=== PATIENT | female | born 1990 | race Caucasian/White ===

== ENCOUNTER 2017-10-12 15:08 | Emergency (ER) | payer MEDICAID, SELFPAY ==
[2017-10-12 15:30] VITALS: BP 115/66; PULSE 74; RESP 20; TEMP 36.6; O2SAT 99; BMI 25.2
[2017-10-12 15:55] LABS: Apearance,Urine Clear (Clear); Bilirubin,Urine Negative (Negative); Blood, Urine Negative (Negative); Color,Urine Yellow (Yellow); Glucose,Urine (UA) Negative (Negative); Ketones,Urine Negative (Negative); Protein,Urine Negative (Negative); UTC Leukocyte Esterase,Urine Trace (Negative); Urobilinogen,Urine 0.2 EU/dl (0.2)
[2017-10-12 15:56] LABS: UTC Nitrate,Urine Negative (Negative)
--- NOTE | 2017-10-12 16:04 | HMH.EDUTC ---
[facility] [place] Clinical Impression: Suprapubic pain, acute Disposition: Home, Self-Care Condition on Discharge: Good Instructions: DI for Abdominal Pain-Adult Additional Instructions: As we discussed, further evaluation is necessary to determine diagnosis. I understand you do not want to transfer to ER but if ANY pain or new symptoms begin, you agree to return immediately * Otherwise, call Dr. Hanna on Saturday. Report symptoms. Notify them you were in [place] today. U/A trace leuks and sent for culture so they can get those results for you (they take 2-3 days to return) and urine preg negative Referrals: Neno Hanna MD [Staff Physician] - (ER for new or returning symptoms. Call Dr. Hanna on Saturday as we discussed. ) Time of Disposition: 16:24 Medical Decision Making - Danny Inquiry Pt receiving controlled substance: No Vital Signs: 10/12/17 15:30 Temperature 97.9 F Temperature Source Temporal Artery Scan Pulse Rate [Right Radial] 74 Respiratory Rate 20 Blood Pressure [Right Arm] 115/66 Blood Pressure Mean [Right Arm] 82 02 Sat by Pulse Oximetry 99 Oxygen Delivery Method Room Air - Lab Data Lab results reviewed: Yes: I reviewed the patient's lab results. Lab Results 10/12/17 15:30: Urine Color Yellow, Urine Appearance Clear, Urine pH 5.0, Ur Specific [place] 1.010, Urine Protein Negative, Urine Glucose (UA) Negative, Urine Ketones Negative, Urine Blood Negative, Urine Nitrate Negative, Urine Bilirubin Negative, Urine Urobilinogen 0.2, Ur Leukocyte Esterase Trace 10/12/17 16:15: [facility] Clinic Negative Orders (Tests/Meds): ORDERS Category Date Time Status Urine Culture Stat Micro 10/12/17 16:00 Received - Reevaluation(s) Time: 16:15 Reevaluation #1: Discussed possible differentials and need for further workup. Aware this type of workup is not typically done here in [place] and requires transfer to ER. Patient refuses transfer to ER since pain resolved again. Aware of the risk associated w/ not treating each differential. States she rather Call Dr. Hanna on Saturday and follow up with him but that if pain returns or any new symptoms, will return to ER immediately. [facility] [place] - General Stated complaint: pain left hip,nausa Time Seen by Provider: 10/12/17 16:05 Mode of Arrival: Family Vehicle Source of Information: Patient Limitations: No Limitations Description of Symptoms (Recalled from Triage Doc. by RN): PT C/O LEFT LOWER HIP/ABDOMINAL PAIN THAT CAN CAUSE NAUSEA. HEENT Symptoms (Recalled from RN notes): No Resp Symptoms (Recalled from RN notes): No Skin Symptoms (Recalled from RN notes): No MS Symptoms (Recalled from RN notes): No Functional Status (Recalled from RN notes): NA - History of Present Illness Provider Complaint: c/o having had hip pain but touching suprapubic area. First noticed during the day on . mild sharp pain right flank. Took tylenol and pain resolved. Just didn't think much of it . night pain right suprapubic region associated w/ nausea. Came out of no where intense, sharp, gradually worsened then gradually faded over the next approx 3 hours. No pain yesterday. Today around 2:15pm, same pain started but this time left suprapubic region. Again severe, sharp, throbbing. Nausea again but today, I just felt weird . Lightheaded and shaky feeling but wasn't really shakey . Took 400mg ibuprofen. pain continued to gradually worsen but has since faded completely away. No pain or nausea currently since signing in. - Related Data Allergies Allergy/AdvReac Type Severity Reaction Status Date / Time No Known Allergies Allergy Verified 10/12/17 15:36 - Worker's Comp Is this a Worker's Comp case?: No H History I have reviewed the patient's past medical history: Yes Medical History: Denies:: Cancer, Diabetes Mellitus Type 1, Diabetes Mellitus Type 2, Hypertension, MRSA Laterality Cases: Bilateral: Myringotomy (Ear Tubes) Other Surgeries: Yes: O
--- NOTE | 2017-10-12 16:15 | ED_ITS ---
[facility] [place] Impression: Suprapubic pain, acute Disposition: Home, Self-Care Condition on Discharge: Good Instructions: DI for Abdominal Pain-Adult Additional Instructions: As we discussed, further evaluation is necessary to determine diagnosis. I understand you do not want to transfer to ER but if ANY pain or new symptoms begin, you agree to return immediately * Otherwise, call Dr. Hanna on Saturday. Report symptoms. Notify them you were in [facility] today. U/A trace leuks and sent for culture so they can get those results for you (they take 2-3 days to return) and urine preg negative Referrals: Neno Hanna MD [Staff Physician] - (ER for new or returning symptoms. Call Dr. Hanna on Saturday as we discussed. ) Time of Disposition: 16:24 Medical Decision Making - Danny Inquiry Pt receiving controlled substance: No Vital Signs: 10/12/17 15:30 Temperature 97.9 F Temperature Source Temporal Artery Scan Pulse Rate [Right Radial] 74 Respiratory Rate 20 Blood Pressure [Right Arm] 115/66 Blood Pressure Mean [Right Arm] 82 02 Sat by Pulse Oximetry 99 Oxygen Delivery Method Room Air - Lab Data Lab results reviewed: Yes: I reviewed the patient's lab results. Lab Results 10/12/17 15:30: Urine Color Yellow, Urine Appearance Clear, Urine pH 5.0, Ur Specific [place] 1.010, Urine Protein Negative, Urine Glucose (UA) Negative, Urine Ketones Negative, Urine Blood Negative, Urine Nitrate Negative, Urine Bilirubin Negative, Urine Urobilinogen 0.2, Ur Leukocyte Esterase Trace 10/12/17 16:15: Tst Clinic Negative Orders (Tests/Meds): ORDERS Category Date Time Status Urine Culture Stat Micro 10/12/17 16:00 Received - Reevaluation(s) Time: 16:15 Reevaluation #1: Discussed possible differentials and need for further workup. Aware this type of workup is not typically done here in [facility] and requires transfer to ER. Patient refuses transfer to ER since pain resolved again. Aware of the risk associated w/ not treating each differential. States she rather Call Dr. Hanna on Saturday and follow up with him but that if pain returns or any new symptoms, will return to ER immediately. [facility] [place] - General Stated complaint: pain left hip,nausa Time Seen by Provider: 10/12/17 16:05 Mode of Arrival: Family Vehicle Source of Information: Patient Limitations: No Limitations Description of Symptoms (Recalled from Triage Doc. by RN): PT C/O LEFT LOWER HIP /ABDOMINAL PAIN THAT CAN CAUSE NAUSEA. HEENT Symptoms (Recalled from RN notes): No Resp Symptoms (Recalled from RN notes): No Skin Symptoms (Recalled from RN notes): No MS Symptoms (Recalled from RN notes): No Functional Status (Recalled from RN notes): NA - History of Present Illness Provider Complaint: c/o having had hip pain but touching suprapubic area. First noticed during the day on . mild sharp pain right flank. Took tylenol and pain resolved. Just didn't think much of it . night pain right suprapubic region associated w/ nausea. Came out of no where intense, sharp, gradually worsened then gradually faded over the next approx 3 hours. No pain yesterday. Today around 2:15pm, same pain started but this time left suprapubic region. Again severe, sharp, throbbing. Nausea again but today, I just felt weird . Lightheaded and shaky feeling but wasn't really shakey . Took 400mg ibuprofen. pain continued to gradually worsen but has since faded completely away. No pain or nausea currently sin
[2017-10-12 16:24] LABS: UTC Pregnancy Test, Urine Negative (Negative)
[2017-10-12 16:26] VITALS: BP 110/85; PULSE 70; RESP 18; TEMP 36.7; O2SAT 100
== END 2017-10-12 16:27 | disposition home or self-care (01) ==
PROVIDERS: Emergency Provider Nurse Practitioner Family; Family Provider Family Medicine; PCP Family Medicine
DX: R10.2 Pelvic and perineal pain (principal); M25.552 Pain in left hip
CPT/HCPCS: 81003; 81025; 87086; 99201

== ENCOUNTER 2017-10-13 20:51 | Observation (INO) | payer MEDICAID, SELFPAY ==
[2017-10-13 20:58] VITALS: BP 125/77; PULSE 84; RESP 18; TEMP 36.6; O2SAT 100; BMI 34.2
--- NOTE | 2017-10-13 21:16 | CT_ITS ---
CT abdomen pelvis w con COMPARISON: CT scan abdomen pelvis without contrast 05/30/2012 HISTORY: Lower abdominal pain for 3 to 4 days, some nausea TECHNIQUE: Multiaxial scans obtained from hemidiaphragms the pelvic floor and were performed with IV contrast only. Sagittal and coronal reformats were evaluated as well. FINDINGS: The lower lung barrientos are clear. The liver spleen and pancreas appear normal. The stomach is distended with ingested food particles. There is a small hiatal hernia. There is mild dilatation of the descending duodenum. The small bowel appears normal throughout. There is apparent postsurgical scarring near the umbilicus. The adrenal glands are normal. The kidneys are normal size and show symmetrical function both appearing normal. There appear to be surgical sutures in the cecum and I do not definitely identify the appendix. There is moderate amount stool in ascending colon. There are bilateral tubal ligation clips. The uterus is slightly enlarged and in the midline. Urinary bladder is normal. There is no free fluid in the pelvis. IMPRESSION: Probable postsurgical scarring involving the umbilicus. Do not feel that there is an entrapment of small bowel as was mentioned in the C report. The degree of stomach distention is consistent with a recently ingested meal. I feel is no definite acute abdominal or pelvic pathology identified.
[2017-10-13 21:22] LABS: Basophils % 0.2 % (0.1-2.0); Eosinophils # 0.1 K/mm3 (0.0-0.4); Eosinophils % 1.8 % (0.1-12.0); Hematocrit 41.4 % (37.0-47.0); Hemoglobin 13.3 g/dL (12.2-16.2); Lymphocytes # 2.2 K/mm3 (0.7-4.5); Lymphocytes % 32.6 K/mm3 (10-50); Mean Corpuscular HGB Conc 32.1 g/dL (31.8-35.4); Mean Corpuscular Hemoglobin 29.2 pg (27.0-31.2); Mean Corpuscular Volume 90.9 fl (81-99); Monocytes # 0.5 K/mm3 (0.1-1.0); Monocytes % 7.3 % (1.7-9.3); Neutrophils % 58.1 % (37.0-80.0); Platelet Count 182 K/mm3 (142-424); Red Blood Count 4.55 M/mm3 (4.20-5.40); White Blood Count 6.8 K/mm3 (4.8-10.8)
[2017-10-13 21:23] LABS: Microscopic, Urine URINE MICROSCOPIC (MICROSCOPIC)
[2017-10-13 21:24] LABS: Appearance,Urine CLEAR (Clear); Bilirubin,Urine Negative (Negative); Blood, Urine Negative (Negative); Color,Urine YELLOW (Yellow); Glucose,Urine (UA) Negative (Negative); Ketones,Urine Negative (Negative); Leukocyte Esterase,Urine Negative (Negative); Nitrate,Urine Negative (Negative); PH,Urine 6.5 (5.0-8.5); Protein,Urine Negative (Negative); Specific Gravity, Urine 1.015 (1.005-1.030); Urobilinogen,Urine 0.2 EU/dl (0.2)
[2017-10-13 21:26] LABS: Renal Epithelial Cells,Urine Occasional #/lpf (0); Squamous Epithelial Cell,Urine Occasional #/hpf (0-5)
[2017-10-13 21:38] LABS: Alanine Aminotransferase 17 U/L (12-78); Albumin Level 3.7 gm/dL (3.4-5.0); Albumin/Globulin Ratio 1.2 (1.1-1.8); Alkaline Phosphatase 52 U/L (46-116); Amylase 46 U/L (25-125); Anion Gap 13.4 mEq/L (5-15); Aspartate Amino Transferase 10 U/L (15-37); Bilirubin,Total 0.2 mg/dL (0.2-1.0); Blood Urea Nitrogen 16 mg/dL (7-18); Calcium 8.5 mg/dL (8.5-10.1); Carbon Dioxide 24 mmol/L (21.0-32.0); Chloride 107 mmol/L (98-107); Creatinine Clearance Estimated 122 mL/min (0-300); Estimated Glomerular Filt Rate 75 ml/min (>60); GFR (African American) 91 ML/MIN (>60); Glucose 81 mg/dL (74-106); Lipase 164 u/L (73-393); Potassium 3.4 mmoL/L (3.5-5.1); Sodium 141 mmol/L (136-145); Total Protein,Serum 6.7 gm/dL (6.4-8.2)
--- NOTE | 2017-10-13 22:56 | HMH.EDABDPAI ---
ED Disposition Clinical Impression: Partial small bowel obstruction Crohns disease Qualifiers: Gastrointestinal tract location: unspecified location Digestive disease complication type: other complication Qualified Code(s): K50.918 - Crohn's disease, unspecified, with other complication Disposition: Admitted As Inpatient Condition on Discharge: Good Time of Disposition: 23:45 - Critical Care Critical Care Time: No Attestation: On 10/13/17, the high probability of a clinically significant, sudden or life threatening deterioration of the following system(s) required my full and direct attention, intervention and personal management. The time I documented below is in addition to time spent performing reported procedures but includes the following listed in this critical care notation. Medical Decision Making - Medical Records Medical records reviewed: Yes: I reviewed the patient's medical records. - Danny Inquiry Pt receiving controlled substance: No Vital Signs: 10/13/17 20:58 10/13/17 23:31 Temperature 97.8 F Temperature Source Oral Pulse Rate [Bilateral Brachial] 84 72 Respiratory Rate 18 14 Blood Pressure [Right Arm] 125/77 108/66 Blood Pressure Mean [Right Arm] 93 80 Blood Pressure Source [Right Arm] Automatic Cuff Automatic Cuff Blood Pressure Position [Right Arm] Sitting Sitting 02 Sat by Pulse Oximetry 100 100 Oxygen Delivery Method Room Air Room Air - Lab Data Lab results reviewed: Yes: I reviewed the patient's lab results. Lab Results 10/13/17 21:10: Urine Color Yellow, Urine Appearance Clear, Urine pH 6.5, Ur Specific [place] 1.015, Urine Protein Negative, Urine Glucose (UA) Negative, Urine Ketones Negative, Urine Blood Negative, Urine Nitrate Negative, Urine Bilirubin Negative, Urine Urobilinogen 0.2, Ur Leukocyte Esterase Negative, Ur Squamous Epith Cells Occasional, Ur Renal Epithelial Cell Occasional 10/13/17 21:10: WBC 6.8, RBC 4.55, Hgb 13.3, Hct 41.4, MCV 90.9, MCH 29.2, MCHC 32.1, RDW 14.0, Plt Count 182, MPV 8.0, Neut % (Auto) 58.1, Lymph % (Auto) 32.6, [place] % (Auto) 7.3, Eos % (Auto) 1.8, Baso % (Auto) 0.2, Neut # (Auto) 4.0, Lymph # (Auto) 2.2, [place] # (Auto) 0.5, Eos # (Auto) 0.1, Baso # (Auto) 0.0 10/13/17 21:10: Sodium 141, Potassium 3.4 L, Chloride 107, Carbon Dioxide 24, Anion Gap 13.4, BUN 16, Creatinine 0.90, Estimated Creat Clear 122, Estimated GFR 75, Est GFR ( Amer) 91, Glucose 81, Calcium 8.5, Total Bilirubin 0.2, AST 10 L, ALT 17, Alkaline Phosphatase 52, Total Protein 6.7, Albumin 3.7, Globulin 3.0, Albumin/Globulin Ratio 1.2, Amylase 46, Lipase 164 Result diagrams: 10/13/17 21:10 10/13/17 21:10 Orders (Tests/Meds): ED MEDICATIONS Generic Name Dose Route Start Last Admin Trade Name Freq PRN Reason Stop Dose Admin Potassium Chloride/Sodium Chloride 1,000 mls @ 75 mls/hr 10/14/17 00:45 10/14/17 02:24 Kcl 20 Meq In Ns 1,000 Ml Iv Soln IV 11/13/17 00:44 75 mls/hr .[id number] BHAVNA Administration Iopamidol 75 ml 10/14/17 00:50 10/14/17 01:28 [id number]; 75ml Vial IV 10/14/17 00:51 75 ml ONCE ONE Administration Morphine Sulfate 4 mg 10/14/17 00:42 Morphine 4mg/Ml Syringe IV 11/13/17 00:41 Q4HP PRN Moderate Pain Ondansetron HCl 4 mg 10/14/17 00:42 Zofran 4mg/2ml Vial IV 11/13/17 00:41 Q6HP PRN Nausea Promethazine HCl 12.5 mg 10/14/17 00:42 Phenergan 25mg/Ml 1ml Vial IV 11/13/17 00:41 Q4HP PRN Nausea And Vomiting Sodium Chloride 25 ml 10/14/17 00:42 Sod Chlor 0.9% 25ml Bag IV 11/13/17 00:41 NEEDED PRN for Use with IV Promethazine Sodium Chloride 10 ml 10/14/17 00:50 10/13/17 21:40 Rad-Saline Flush 10ml Syringe IV 10/14/17 00:51 10 ml ONCE ONE Administration Discontinued Medications Generic Name Dose Route Start Last Admin Trade Name Freq PRN Reason Stop Dose Admin Sodium Chloride 1,000 mls @ 999 mls/hr 10/13/17 21:30 10/13/17 21:20
--- NOTE | 2017-10-13 23:26 | PC.NURSE ---
continuous improvement black belt surgeon paged at this time, dr. polk returned page
[2017-10-13 23:31] VITALS: BP 108/66; PULSE 72; RESP 14; O2SAT 100
--- NOTE | 2017-10-13 23:32 | PC.NURSE ---
dr. watkins paged to speak with ED physician.
--- NOTE | 2017-10-13 23:34 | PC.NURSE ---
dr. watkins returned page at this time
[2017-10-14] VITALS (8 sets, daily range): BP systolic 92–123; BP diastolic 46–74; PULSE 61–69; RESP 12–20; TEMP 36.6–36.9; O2SAT 96–100; BMI 35.9
--- NOTE | 2017-10-14 00:35 | PC.NURSE ---
PT FULL CODE. REPORT FROM GUIDO IN ER
--- NOTE | 2017-10-14 00:37 | PC.NURSE ---
REPORT GIVEN TO Alberto LEON RN
--- NOTE | 2017-10-14 05:06 | PC.NURSE ---
NEW ADMIT THIS SHIFT. PARTIAL SMALL BOWEL OBSTRUCTION. PT NPO. HAS CONSULTS THIS A.M. WITH DR. GRAY AND DR. CHUNG. NPO. IV INFUSING [id number]/HR W/O REDNESS OR EDEMA. PT HAD LABS IN ER, BUT NO OTHER LABS ORDERED FOR THIS MORNING. POSSIBILITY OF SCOPE/COLONOSCOPY TODAY. RESPIRATIONS EVEN AND UNLABORED WITH BREATH SOUNDS CLEAR. PT STATES HAS NO MEDICAL PROBLEMS AND DOESN'T TAKE ANY MEDICATIONS AT HOME ON REGULAR BASIS. WAS AVAILABLE TO REQUEST PAIN MEDICATION RECENTLY, BUT HAS BEEN SLEEPING AND NO REQUESTING ANY. NO C/O PAIN OR NAUSEA. SLEEPING LONG INTERVALS. STABLE. WILL CONTINUE TO MONITOR. REPORT TO BE GIVEN TO ONCOMING NURSE.
--- NOTE | 2017-10-14 07:24 | PC.NURSE ---
REPORT GIVEN TO Jeremy CONTI W/C
--- NOTE | 2017-10-14 07:24 | HMH.GSCON ---
*Admission Date: 10/13/17 *Chief complaint: Abdominal pain *History of present illness: Patient is a pleasant healthy 27-year-old white female. She states that this past on 10/10/17 she had developed some right lower flank pain. She had taken ibuprofen. This transiently resolved. She then developed some pain in the right lower pelvic area. She then had development of pain in the left lower pelvic area. She was seen and evaluated in the urgent on 10/12/17. Limited workup at that time was unremarkable. Her symptoms once again transiently resolved. She then developed recurrent pain characterized as cramping across the entire lower abdomen. She presented to the emergency department late yesterday evening due to the pain. She has had some associated nausea. Evaluation in the emergency department revealed normal blood work. She underwent CT scan with IV contrast only. This is most notable for some thickening of the small bowel and colon diffusely. It was felt that inflammatory bowel disease cannot be ruled out. She also was noted to have an area of loop of small bowel closely involved with the right. The umbilical location and it was felt there may be some pinching . For this reason surgery was contacted. Patient was admitted for inpatient management, gastroenterology consultation, surgical consultation. Patient does note that she has had some loose stools the past several days. Review of Systems - Review of Systems Review of systems:: pertinent systems reviewed and negative unless documented below [facility] History Medical History: Denies:: Cancer, Diabetes Mellitus Type 1, Diabetes Mellitus Type 2, Hypertension, MRSA Laterality Cases: Bilateral: Myringotomy (Ear Tubes) Other Surgeries: Yes: Other (cholecystectomy, tubes clamped) Amputation: No Fractures: No - *Social History Educational Level: Completed High School Smoking Status: Current every day smoker Tobacco Type: cigarettes # Packs/Day (cigarettes): 1 Alcohol Intake: never Alcohol Intake Frequency:: holidays/special occasions only Occupational Status: employed Housing: other Household Members: significant other, children - Psychiatric History Expresses thoughts of harming self/others: None Suicide Plan Description: No Plan *Family Hx:: Diabetes, Hyperlipidemia, Hypertension, Thyroid Disorder Meds Home Medications Medication Instructions Recorded Confirmed Type No Known Home Medications [No 10/13/17 10/13/17 History Known Home Medications] Allergies Allergy/AdvReac Type Severity Reaction Status Date / Time No Known Allergies Allergy Verified 10/12/17 15:36 Exam Vital signs and Labs for Last 24 Hours: Temp Pulse Resp BP Pulse Ox 98.1 F 63 18 95/62 97 10/14/17 04:11 10/14/17 04:11 10/14/17 04:11 10/14/17 04:11 10/14/17 04:11 I & O for Last 24 hours: Intake & Output 10/11/17 10/12/17 10/13/17 10/14/17 11:59 11:59 11:59 11:59 Intake Total 290 / 290 Balance 290 / 290 Weight 190 lb 4 oz - Constitutional no acute distress - *Routine Respiratory Exam Present: CTA bilaterally - *Routine Cardiovascular Exam Present: RRR - *Routine Abdominal Exam Present: soft, normoactive bowel sounds. Absent: tenderness Results - Labs 10/13/17 21:10 10/13/17 21:10 Assessment and Plan - Assessment and plan all Dx Assessment and Plan for all problems:: Agree with gastroenterology consultation. I reviewed her CT scan regarding this focal area of small bowel in the right periumbilical location. There may be a small nonobstructing hernia. This could be secondary to her prior cholecystectomy done in [place]. This could be merely adhesions as well. Regardless, there is no evidence of any obstruction at this site. It may be reasonable to obtain CT scan with oral contrast. I will discuss this case with radiology today and await the final report.
--- NOTE | 2017-10-14 07:27 | PC.NURSE ---
0710 - Report received from Sandro Manzano RN
--- NOTE | 2017-10-14 07:29 | P.CONS_ITS ---
*Admission Date: 10/13/17 *Chief complaint: Abdominal pain *History of present illness: Patient is a pleasant healthy 27-year-old white female. She states that this past on 10/10/17 she had developed some right lower flank pain. She had taken ibuprofen. This transiently resolved. She then developed some pain in the right lower pelvic area. She then had development of pain in the left lower pelvic area. She was seen and evaluated in the urgent on 10/12/17. Limited workup at that time was unremarkable. Her symptoms once again transiently resolved. She then developed recurrent pain characterized as cramping across the entire lower abdomen. She presented to the emergency department late yesterday evening due to the pain. She has had some associated nausea. Evaluation in the emergency department revealed normal blood work. She underwent CT scan with IV contrast only. This is most notable for some thickening of the small bowel and colon diffusely. It was felt that inflammatory bowel disease cannot be ruled out. She also was noted to have an area of loop of small bowel closely involved with the right. The umbilical location and it was felt there may be some pinching . For this reason surgery was contacted. Patient was admitted for inpatient management, gastroenterology consultation, surgical consultation. Patient does note that she has had some loose stools the past several days. Review of Systems - Review of Systems Review of systems:: pertinent systems reviewed and negative unless documented below [facility] History Medical History: Denies:: Cancer, Diabetes Mellitus Type 1, Diabetes Mellitus Type 2, Hypertension, MRSA Laterality Cases: Bilateral: Myringotomy (Ear Tubes) Other Surgeries: Yes: Other (cholecystectomy, tubes clamped) Amputation: No Fractures: No - *Social History Educational Level: Completed High School Smoking Status: Current every day smoker Tobacco Type: cigarettes # Packs/Day (cigarettes): 1 Alcohol Intake: never Alcohol Intake Frequency:: holidays/special occasions only Occupational Status: employed Housing: other Household Members: significant other, children - Psychiatric History Expresses thoughts of harming self/others: None Suicide Plan Description: No Plan *Family Hx:: Diabetes, Hyperlipidemia, Hypertension, Thyroid Disorder Meds Home Medications Medication Instructions Recorded Confirmed Type No Known Home Medications [No 10/13/17 10/13/17 History Known Home Medications] Allergies Allergy/AdvReac Type Severity Reaction Status Date / Time No Known Allergies Allergy Verified 10/12/17 15:36 Exam Vital signs and Labs for Last 24 Hours: Temp Pulse Resp BP Pulse Ox 98.1 F 63 18 95/62 97 10/14/17 04:11 10/14/17 04:11 10/14/17 04:11 10/14/17 04:11 10/14/17 04:11 I & O for Last 24 hours: Intake & Output 10/11/17 10/12/17 10/13/17 10/14/17 11:59 11:59 11:59 11:59 Intake Total 290 / 290 Balance 290 / 290 Weight 190 lb 4 oz - Constitutional no acute distress - *Routine Respiratory Exam Present: CTA bilaterally - *Routine Cardiovascular Exam Present: RRR - *Routine Abdominal Exam Present: soft, normoactive bowel sounds. Absent: tenderness Results - Labs 10/13/17 21:10 10/13/17 21:10 Assessment and Plan - Assessment and plan all Dx Assessment and Rhonda
--- NOTE | 2017-10-14 07:40 | PC.NURSE ---
Pt medicated with Morphine 4mg for pain level 4-5/10 in hips and back. Pt describes pain as a shaky, throb, ache type of pain.
--- NOTE | 2017-10-14 07:49 | PC.NURSE ---
pT MEDICATED WITH MORPHINE 4MG FOR C/O PAIN 02/04 LOWER ABDOMEN. PT REPORTS THAT IT IS SHARP STABBY CRAMPY PAIN.
--- NOTE | 2017-10-14 08:01 | HMH.PHAVTE ---
[facility] Pharmacy VTE Monitoring - Patient Demographics Admission date: 10/14/17 Report Date: 10/14/17 Time: 08:01 Allergies/Adverse Reactions: Patient Allergies No Known Allergies Allergy (Verified 10/12/17 15:36) Height: 1.55 m Weight: 86.296 kg Patient Problems: Current Active Problems Partial small bowel obstruction (Acute) Crohns disease (Acute) - VTE Risk Labs: VTE Related Lab Results Hgb 13.3 g/dL (12.2-16.2) 10/13/17 21:10 Hct 41.4 % (37.0-47.0) 10/13/17 21:10 Plt Count 182 K/mm3 (142-424) 10/13/17 21:10 BUN 16 mg/dL (7-18) 10/13/17 21:10 Creatinine 0.90 mg/dL (0.55-1.02) 10/13/17 21:10 Estimated Creat Clear 122 mL/min (0-300) 10/13/17 21:10 Was VTE Risk Assessment Performed: Yes VTE Score: 1 VTE Risk Level: Very Low Risk - Prophylaxis VTE Prophylaxis Ordered?: Yes Types of VTE Prophylaxis: TEDS Knee High Location of Applied Device: Bilateral Lower Extremeties
--- NOTE | 2017-10-14 08:54 | PC.NURSE ---
0815 - Pt reports pain level currently a 10/05. Pt denies any c/o nausea.
--- NOTE | 2017-10-14 08:58 | HMH.HP ---
*Admission Date: 10/14/17 *Chief complaint: abdominal pain *History of present illness: Jeremiah Newell is a pleasant healthy 27-year-old white female with history of GERD. She states that this past on 10/10/17 she had developed some right lower flank pain. She took ibuprofen. This transiently resolved. She then developed some pain in the right lower pelvic area. She was seen and evaluated in the urgent treatment center on 10/12/17. Limited workup at that time was unremarkable. Her symptoms once again transiently resolved. She then developed recurrent pain characterized as cramping across the entire lower abdomen. She presented to the emergency department late yesterday evening due to the pain. She has had some associated nausea. Evaluation in the emergency department revealed normal blood work. She underwent CT scan with IV contrast only. This is most notable for some thickening of the small bowel and colon diffusely. It was felt that inflammatory bowel disease cannot be ruled out. She also was noted to have an area of loop of small bowel closely involved on the right umbilical location. It was felt there may be some pinching . For this reason surgery was contacted. Patient was admitted for inpatient management, gastroenterology consultation, andsurgical consultation. Patient does note that she has had some loose stools the past several days. This a.m. patient continues to have discomfort. Slept very little. She remains n.p.o. Surgery has seen her. [facility] History Medical History: Reports:: Gastroesophageal Reflux Disease(GERD) Denies:: Atherosclerotic Heart Disease, Cancer, Congestive Heart Failure, Chronic Obstructive Pulmonary Disease (COPD), Diabetes Mellitus Type 1, Diabetes Mellitus Type 2, Hypertension, MRSA Laterality Cases: Bilateral: Myringotomy (Ear Tubes) Other Surgeries: Yes: Other (cholecystectomy, tubes clamped) Amputation: No Fractures: No - *Social History Educational Level: Completed High School Smoking Status: Current every day smoker Tobacco Type: cigarettes # Packs/Day (cigarettes): 1 Alcohol Intake: never Alcohol Intake Frequency:: holidays/special occasions only Occupational Status: employed Housing: other Household Members: significant other, children - Psychiatric History Expresses thoughts of harming self/others: None Suicide Plan Description: No Plan *Family Hx:: Diabetes, Hyperlipidemia, Hypertension, Thyroid Disorder Review of Systems - Constitutional Denies body ache(s), Denies chills, Denies fever(s), Denies headache(s), Denies weakness - ENT Denies dizziness, Denies difficulty swallowing, Denies ear pain, Denies sore throat, Denies throat swelling - *Cardiovascular Denies chest pain, Denies shortness of breath, Denies leg swelling - *Respiratory Denies cough, Denies shortness of breath - *Gastrointestinal Reports abdominal pain, Reports change in stools (Loose), Reports cramping, Reports heartburn, Reports loose stools, Reports nausea, Denies coffee ground vomit, Denies constipation, Denies vomiting blood, Denies black, tarry stools, Denies vomiting - *Genitourinary Denies abnormal periods, Denies difficulty urinating, Denies urinary incontinence, Denies urinary urgency - *Musculoskeletal Denies abnormal walking - *Neurologic Denies abnormal walking, Denies behavioral changes, Denies seizure-like activity, Denies localized weakness, Denies headache(s) Meds Home Medications Medication Instructions Recorded Confirmed Type No Known Home Medications [No 10/13/17 10/13/17 History Known Home Medications] Allergies Allergy/AdvReac Type Severity Reaction Status Date / Time No Known Allergies Allergy Verified 10/12/17 15:36 Exam Vital signs and Labs for Last 24 Hours: Temp Pulse Resp BP Pulse Ox 98.5 F 64 20 105/74 99 10/14/17 07:45 10/14/17 07:45 10/14/17 07:45 10/14/17 07:45 10/14/17 07:45 Laboratory Tests 10/13/1710/13
--- NOTE | 2017-10-14 09:03 | P.HP_ITS ---
*Admission Date: 10/14/17 *Chief complaint: abdominal pain *History of present illness: Jeremiah Newell is a pleasant healthy 27-year-old white female with history of GERD. She states that this past on 10/10/17 she had developed some right lower flank pain. She took ibuprofen. This transiently resolved. She then developed some pain in the right lower pelvic area. She was seen and evaluated in the urgent treatment center on 10/12/17. Limited workup at that time was unremarkable. Her symptoms once again transiently resolved. She then developed recurrent pain characterized as cramping across the entire lower abdomen. She presented to the emergency department late yesterday evening due to the pain. She has had some associated nausea. Evaluation in the emergency department revealed normal blood work. She underwent CT scan with IV contrast only. This is most notable for some thickening of the small bowel and colon diffusely. It was felt that inflammatory bowel disease cannot be ruled out. She also was noted to have an area of loop of small bowel closely involved on the right umbilical location. It was felt there may be some pinching . For this reason surgery was contacted. Patient was admitted for inpatient management, gastroenterology consultation, andsurgical consultation. Patient does note that she has had some loose stools the past several days. This a.m. patient continues to have discomfort. Slept very little. She remains n.p.o. Surgery has seen her. [facility] History Medical History: Reports:: Gastroesophageal Reflux Disease(GERD) Denies:: Atherosclerotic Heart Disease, Cancer, Congestive Heart Failure, Chronic Obstructive Pulmonary Disease (COPD), Diabetes Mellitus Type 1, Diabetes Mellitus Type 2, Hypertension, MRSA Laterality Cases: Bilateral: Myringotomy (Ear Tubes) Other Surgeries: Yes: Other (cholecystectomy, tubes clamped) Amputation: No Fractures: No - *Social History Educational Level: Completed High School Smoking Status: Current every day smoker Tobacco Type: cigarettes # Packs/Day (cigarettes): 1 Alcohol Intake: never Alcohol Intake Frequency:: holidays/special occasions only Occupational Status: employed Housing: other Household Members: significant other, children - Psychiatric History Expresses thoughts of harming self/others: None Suicide Plan Description: No Plan *Family Hx:: Diabetes, Hyperlipidemia, Hypertension, Thyroid Disorder Review of Systems - Constitutional Denies body ache(s), Denies chills, Denies fever(s), Denies headache(s), Denies weakness - ENT Denies dizziness, Denies difficulty swallowing, Denies ear pain, Denies sore throat, Denies throat swelling - *Cardiovascular Denies chest pain, Denies shortness of breath, Denies leg swelling - *Respiratory Denies cough, Denies shortness of breath - *Gastrointestinal Reports abdominal pain, Reports change in stools (Loose), Reports cramping, Reports heartburn, Reports loose stools, Reports nausea, Denies coffee ground vomit, Denies constipation, Denies vomiting blood, Denies black, tarry stools, Denies vomiting - *Genitourinary Denies abnormal periods, Denies difficulty urinating, Denies urinary incontinence, Denies urinary urgency - *Musculoskeletal Denies abnormal walking - *Neurologic Denies abnormal walking, Denies behavioral changes, Denies seizure-like activity , Denies localized weakness, Denies headache(s) Meds Home Medications Medication Instructions Recorded Confirmed Type No Known Home Medications [No 10/13/17 10/13/17 History Known Home Medications]
--- NOTE | 2017-10-14 09:10 | HMH.CONS ---
<Comfort Crandall - Last Filed: 10/14/17 09:10> *Admission Date: 10/14/17 *Chief complaint: ABD pain *History of present illness: Jeremiah Newell is a pleasant healthy 27-year-old white female with history of GERD. She states that this past on 10/10/17 she had developed some right lower flank pain. She took ibuprofen. This transiently resolved. She then developed some pain in the right lower pelvic area. She was seen and evaluated in the urgent treatment center on 10/12/17. Limited workup at that time was unremarkable. Her symptoms once again transiently resolved. She then developed recurrent pain characterized as cramping across the entire lower abdomen. She presented to the emergency department late yesterday evening due to the pain. She has had some associated nausea. Evaluation in the emergency department revealed normal blood work. She underwent CT scan with IV contrast only. This is most notable for some thickening of the small bowel of the descending duodenum. It was felt that inflammatory bowel disease cannot be ruled out. She also was noted to have an area of loop of small bowel closely involved on the right umbilical location. It was felt there may be some pinching . For this reason surgery was contacted. Dr. Acuña did see the pt and did not feel that this area was c/w obstruction but rather possible abd wall hernia 2/2 previous CCY. The pt has been given IV morphine which has helped her lower ABD pain but has had intermittent pain over the past 24 hours. She has had some loose stool x's 2 episodes but historically has had constipation going up to 4 days w/o BM. She denies nausea/vomiting. She is mildly TTP. She denies hematocheiza, melena, or mucus. No fmh of IBD or colon ca. [facility] History Medical History: Reports:: Gastroesophageal Reflux Disease(GERD) Denies:: Atherosclerotic Heart Disease, Cancer, Congestive Heart Failure, Chronic Obstructive Pulmonary Disease (COPD), Diabetes Mellitus Type 1, Diabetes Mellitus Type 2, Hypertension, MRSA Laterality Cases: Bilateral: Myringotomy (Ear Tubes) Other Surgeries: Yes: Other (cholecystectomy, tubes clamped) Amputation: No Fractures: No - *Social History Educational Level: Completed High School Smoking Status: Current every day smoker Tobacco Type: cigarettes # Packs/Day (cigarettes): 1 Alcohol Intake: never Alcohol Intake Frequency:: holidays/special occasions only Occupational Status: employed Housing: other Household Members: significant other, children - Psychiatric History Expresses thoughts of harming self/others: None Suicide Plan Description: No Plan *Family Hx:: Diabetes, Hyperlipidemia, Hypertension, Thyroid Disorder Review of Systems - Review of Systems Review of systems:: pertinent systems reviewed and negative unless documented below - *Gastrointestinal Reports abdominal pain, Reports change in bowel habits, Reports change in stools, Reports constipation, Reports cramping, Reports loose stools - *Neurologic Denies abnormal walking, Denies behavioral changes, Denies seizure-like activity, Denies dizziness, Denies localized weakness, Denies headache(s), Denies weakness Meds Home Medications Medication Instructions Recorded Confirmed Type No Known Home Medications [No 10/13/17 10/13/17 History Known Home Medications] Allergies Allergy/AdvReac Type Severity Reaction Status Date / Time No Known Allergies Allergy Verified 10/12/17 15:36 Exam Vital signs and Labs for Last 24 Hours: Temp Pulse Resp BP Pulse Ox 98.5 F 64 20 105/74 99 10/14/17 07:45 10/14/17 07:45 10/14/17 07:45 10/14/17 07:45 10/14/17 07:45 I & O for Last 24 hours: Intake & Output 10/11/17 10/12/17 10/13/17 10/14/17 23:59 23:59 23:59 23:59 Intake Total 290 / 290 Balance 290 / 290 Weight 190 lb 4 oz - Constitutional no acute distress - *Routine HEENT Exam Head: Present: normocephalic - *Routine Abdominal Exam
--- NOTE | 2017-10-14 09:15 | P.CONS_ITS ---
<Comfort Crandall - Last Filed: 10/14/17 09:10> *Admission Date: 10/14/17 *Chief complaint: ABD pain *History of present illness: Jeremiah Newell is a pleasant healthy 27-year-old white female with history of GERD. She states that this past on 10/10/17 she had developed some right lower flank pain. She took ibuprofen. This transiently resolved. She then developed some pain in the right lower pelvic area. She was seen and evaluated in the urgent treatment center on 10/12/17. Limited workup at that time was unremarkable. Her symptoms once again transiently resolved. She then developed recurrent pain characterized as cramping across the entire lower abdomen. She presented to the emergency department late yesterday evening due to the pain. She has had some associated nausea. Evaluation in the emergency department revealed normal blood work. She underwent CT scan with IV contrast only. This is most notable for some thickening of the small bowel of the descending duodenum. It was felt that inflammatory bowel disease cannot be ruled out. She also was noted to have an area of loop of small bowel closely involved on the right umbilical location. It was felt there may be some pinching . For this reason surgery was contacted. Dr. Acuña did see the pt and did not feel that this area was c/w obstruction but rather possible abd wall hernia 2/2 previous CCY. The pt has been given IV morphine which has helped her lower ABD pain but has had intermittent pain over the past 24 hours. She has had some loose stool x's 2 episodes but historically has had constipation going up to 4 days w/o BM. She denies nausea/vomiting. She is mildly TTP. She denies hematocheiza, melena, or mucus. No fmh of IBD or colon ca. [facility] History Medical History: Reports:: Gastroesophageal Reflux Disease(GERD) Denies:: Atherosclerotic Heart Disease, Cancer, Congestive Heart Failure, Chronic Obstructive Pulmonary Disease (COPD), Diabetes Mellitus Type 1, Diabetes Mellitus Type 2, Hypertension, MRSA Laterality Cases: Bilateral: Myringotomy (Ear Tubes) Other Surgeries: Yes: Other (cholecystectomy, tubes clamped) Amputation: No Fractures: No - *Social History Educational Level: Completed High School Smoking Status: Current every day smoker Tobacco Type: cigarettes # Packs/Day (cigarettes): 1 Alcohol Intake: never Alcohol Intake Frequency:: holidays/special occasions only Occupational Status: employed Housing: other Household Members: significant other, children - Psychiatric History Expresses thoughts of harming self/others: None Suicide Plan Description: No Plan *Family Hx:: Diabetes, Hyperlipidemia, Hypertension, Thyroid Disorder Review of Systems - Review of Systems Review of systems:: pertinent systems reviewed and negative unless documented below - *Gastrointestinal Reports abdominal pain, Reports change in bowel habits, Reports change in stools , Reports constipation, Reports cramping, Reports loose stools - *Neurologic Denies abnormal walking, Denies behavioral changes, Denies seizure-like activity , Denies dizziness, Denies localized weakness, Denies headache(s), Denies weakness Meds Home Medications Medication Instructions Recorded Confirmed Type No Known Home Medications [No 10/13/17 10/13/17 History Known Home Medications] Allergies Allergy/AdvReac Type Severity Reaction Status Date / Time No Known Allergies Allergy Verified 10/12/17 15:36 Exam Vital signs and Labs for Last 24 Hours: Temp Pulse Resp BP Pulse Ox
--- NOTE | 2017-10-14 09:22 | FL_ITS ---
FL small bowel follow through COMPARISON: CT scan abdomen pelvis 10/13/2017 HISTORY: Lower abdominal pain, questionable developing small bowel obstruction on recent CT exam TECHNIQUE: Addiction Counselor film 5 by sequential overhead films following drinking of barium in addition to fluoroscopy and palpation right lower quadrant FINDINGS: The breast worker film shows several gas-filled loops of proximal mid small bowel which do not appear to be dilated. There appear to be tubal ligation clips on both sides of the pelvis and there is an umbilical metallic jewelry noted. The stomach duodenal wall and duodenal sweep appear grossly normal. The proximal small bowel appears normal. There is normal to slightly increased transit time of barium through the small bowel reaching the cecum and approximate 45 to 50 minutes. The mid and distal small bowel have a normal appearance is no abnormal displacement or distortion of the small bowel loops. Fluoroscopy revealed no tenderness over the terminal ileum and cecum though the patient complained of mild tenderness in the lower abdomen and upper pelvis in the midline. The terminal ileum was somewhat difficult to visualize due to overlapping loops of small bowel. IMPRESSION: Essentially unremarkable small bowel follow-through with no evidence of small bowel obstruction. Fluoroscopy time was approximately 1 minute.
--- NOTE | 2017-10-14 19:14 | PC.NURSE ---
report given to vivian wright
--- NOTE | 2017-10-14 19:38 | PC.NURSE ---
REPORT TO Viktoria GARCIA RN
--- NOTE | 2017-10-15 02:19 | PC.NURSE ---
Pt slept majority of shift. Reports bentyl is effective in pain control, bowel sounds normal and audible in all quads VS normal, nothing acute to report, pt remained safe this shift.
[2017-10-15 05:05] VITALS: BP 103/53; PULSE 67; RESP 16; TEMP 36.6; O2SAT 97
--- NOTE | 2017-10-15 07:20 | PC.NURSE ---
Report given to Laura Garcia RN leaving pt safe and stable at this time.
[2017-10-15 08:00] VITALS: BP 118/66; PULSE 51; RESP 20; TEMP 36.6; O2SAT 100
--- NOTE | 2017-10-15 08:58 | HMH.ACPN2 ---
Internal Medicine - PN: Subj *Date: 10/15/17 *Time: 08:58 Interval history: Clinically the patient is stable. She would like to go home. She had a upper GI with small bowel follow-through yesterday which was negative. Her potassium was 3.4 on the and we have not followed up on that. Her abdomen is soft and nontender. Notes from GI are reviewed. Eventually she will have EGD. Exam Vital signs and Labs for Last 24 Hours: Temp Pulse Resp BP Pulse Ox 97.8 F 51 L 20 118/66 100 10/15/17 08:00 10/15/17 08:00 10/15/17 08:00 10/15/17 08:00 10/15/17 08:00 I & O for Last 24 hours: Intake & Output 10/12/17 10/13/17 10/14/17 10/15/17 11:59 11:59 11:59 11:59 Intake Total 290 / 290 2155 / 2155 Balance 290 / 290 2155 / 2155 Weight 190 lb 4 oz 192 lb 3 oz - Constitutional no acute distress - *Routine HEENT Exam Eye: Present: PERRL ENT: Present: mucous membranes moist - *Routine Respiratory Exam Present: CTA bilaterally Comments: Only a few basilar rales bilaterally - *Routine Cardiovascular Exam Present: RRR - *Routine Abdominal Exam Present: soft. Absent: tenderness Assessment and Plan (1) Abdominal pain Current visit: Yes Status: Acute Category: Medical Code(s): R10.9 - Unspecified abdominal pain (2) Nausea Current visit: Yes Status: Acute Category: Medical Code(s): R11.0 - Nausea (3) Hypokalemia Current visit: Yes Status: Acute Category: Medical Code(s): E87.6 - Hypokalemia - Assessment and plan all Dx Assessment and Plan for all problems:: Recheck potassium. Plan discharge today with follow-up as outpatient.
[2017-10-15 09:36] LABS: Anion Gap 9.2 mEq/L (5-15); Blood Urea Nitrogen 6 mg/dL (7-18); Carbon Dioxide 28 mmol/L (21.0-32.0); Chloride 109 mmol/L (98-107); Creatinine Clearance Estimated 162 mL/min (0-300); Creatinine,Serum 0.72 mg/dL (0.55-1.02); Estimated Glomerular Filt Rate 97 ml/min (>60); GFR (African American) 118 ML/MIN (>60); Glucose 105 mg/dL (74-106); Potassium 4.2 mmoL/L (3.5-5.1); Sodium 142 mmol/L (136-145)
--- NOTE | 2017-10-15 09:51 | PC.NURSE ---
Spoke with Viktoria Jones related to discharge order placed by Dr. Delaney. Helen to change Zofran 4mg IV to Zofran 4mg po.
--- NOTE | 2017-10-15 21:31 | HMH.DCSUM ---
General - General Admission date: 10/14/17 Discharge date: 10/15/17 HPI HPI: Jeremiah Newell is a pleasant healthy 27-year-old white female with history of GERD. She states that this past on 10/10/17 she had developed some right lower flank pain. She took ibuprofen. This transiently resolved. She then developed some pain in the right lower pelvic area. She was seen and evaluated in the urgent treatment center on 10/12/17. Limited workup at that time was unremarkable. Her symptoms once again transiently resolved. She then developed recurrent pain characterized as cramping across the entire lower abdomen. She presented to the emergency department late yesterday evening due to the pain. She has had some associated nausea. Evaluation in the emergency department revealed normal blood work. She underwent CT scan with IV contrast only. This is most notable for some thickening of the small bowel and colon diffusely. It was felt that inflammatory bowel disease cannot be ruled out. She also was noted to have an area of loop of small bowel closely involved on the right umbilical location. It was felt there may be some pinching . For this reason surgery was contacted. Patient was admitted for inpatient management, gastroenterology consultation, andsurgical consultation. Patient does note that she has had some loose stools the past several days. Hospital Course Hospital Course: She was started on GI rest and IVF with potassium. Surgery and gastroenterology referrals were ordered. She was started on pain medication and antiemetics. Dr. Adair recommended pt have an Upper GI with SBFT while inpatient to ensure no obstruction, however, given her lack of symptoms, he felt this was unlikely. Given her hx of constipation, he suspected this was more likely small intestinal overgrowth that has now manifested with ABD pain, cramping, and loose stool. He recommended to stop Morphine and start on Bentyl q4-6 for pain/cramping and start on probiotics and metamucil fiber. She will f/u with him at his office. Dr. Acuña agreed with this as well. Both felt she would need an EGD eventually and possibly a c-scope. She had an upper GI with small bowel follow-through which was negative. Her symptoms improved and she was stable to be discharged home. Objective Vital signs: Temp Pulse Resp BP Pulse Ox 97.8 F 51 L 20 118/66 100 10/15/17 08:00 10/15/17 08:00 10/15/17 08:00 10/15/17 08:00 10/15/17 08:00 Narrative: - Constitutional no acute distress - *Routine HEENT Exam Head: Present: normocephalic, atraumatic Eye: Present: PERRL. Absent: scleral injection ENT: Present: mucous membranes moist, oropharynx clear, dentition normal - *Routine Neck Exam Present: supple, full ROM. Absent: carotid bruit, lymphadenopathy, thyromegaly - *Routine Respiratory Exam Present: CTA bilaterally - *Routine Cardiovascular Exam Present: RRR - *Routine Abdominal Exam Present: soft, tenderness Comments: In all upper quadrants. - *Routine Extremities Exam Absent: edema, calf tenderness - *Routine Neurological Exam Present: alert, oriented X3 Results Labs on day of discharge: Labs from last 24 hours 10/15/17 09:20 Sodium 142 Potassium 4.2 D Chloride 109 H Carbon Dioxide 28 Anion Gap 9.2 BUN 6 L D Creatinine 0.72 Estimated Creat Clear 162 Estimated GFR 97 Est GFR ( Amer) 118 D Glucose 105 DS: Diagnosis - Discharge Diagnosis (1) Abdominal pain Status: Acute (2) Hypokalemia Status: Acute (3) Nausea Status: Acute Discharge Plan - Patient Discharge Instructions ACTIVITY: Continue current activity DIET: continue same diet Forms: [facility] Work Release - Follow up Plan Follow up with: Viraj Adair MD [Staff Physician] - 1 week Disposition: Home, Self-Care Prescriptions/Medication Reconciliation: New Dicyclomine HCl [Bentyl 10mg capsul
--- NOTE | 2017-10-15 21:38 | P.DS_ITS ---
General - General Admission date: 10/14/17 Discharge date: 10/15/17 HPI HPI: Jeremiah Newell is a pleasant healthy 27-year-old white female with history of GERD. She states that this past on 10/10/17 she had developed some right lower flank pain. She took ibuprofen. This transiently resolved. She then developed some pain in the right lower pelvic area. She was seen and evaluated in the urgent treatment center on 10/12/17. Limited workup at that time was unremarkable. Her symptoms once again transiently resolved. She then developed recurrent pain characterized as cramping across the entire lower abdomen. She presented to the emergency department late yesterday evening due to the pain. She has had some associated nausea. Evaluation in the emergency department revealed normal blood work. She underwent CT scan with IV contrast only. This is most notable for some thickening of the small bowel and colon diffusely. It was felt that inflammatory bowel disease cannot be ruled out. She also was noted to have an area of loop of small bowel closely involved on the right umbilical location. It was felt there may be some pinching . For this reason surgery was contacted. Patient was admitted for inpatient management, gastroenterology consultation, andsurgical consultation. Patient does note that she has had some loose stools the past several days. Hospital Course Hospital Course: She was started on GI rest and IVF with potassium. Surgery and gastroenterology referrals were ordered. She was started on pain medication and antiemetics. Dr. Adair recommended pt have an Upper GI with SBFT while inpatient to ensure no obstruction, however, given her lack of symptoms, he felt this was unlikely. Given her hx of constipation, he suspected this was more likely small intestinal overgrowth that has now manifested with ABD pain, cramping, and loose stool. He recommended to stop Morphine and start on Bentyl q4-6 for pain/ cramping and start on probiotics and metamucil fiber. She will f/u with him at his office. Dr. Acuña agreed with this as well. Both felt she would need an EGD eventually and possibly a c-scope. She had an upper GI with small bowel follow-through which was negative. Her symptoms improved and she was stable to be discharged home. Objective Vital signs: Temp Pulse Resp BP Pulse Ox 97.8 F 51 L 20 118/66 100 10/15/17 08:00 10/15/17 08:00 10/15/17 08:00 10/15/17 08:00 10/15/17 08:00 Narrative: - Constitutional no acute distress - *Routine HEENT Exam Head: Present: normocephalic, atraumatic Eye: Present: PERRL. Absent: scleral injection ENT: Present: mucous membranes moist, oropharynx clear, dentition normal - *Routine Neck Exam Present: supple, full ROM. Absent: carotid bruit, lymphadenopathy, thyromegaly - *Routine Respiratory Exam Present: CTA bilaterally - *Routine Cardiovascular Exam Present: RRR - *Routine Abdominal Exam Present: soft, tenderness Comments: In all upper quadrants. - *Routine Extremities Exam Absent: edema, calf tenderness - *Routine Neurological Exam Present: alert, oriented X3 Results Labs on day of discharge: Labs from last 24 hours 10/15/17 09:20 Sodium 142 Potassium 4.2 D Chloride 109 H Carbon Dioxide 28 Anion Gap 9.2 BUN 6 L D Creatinine 0.72 Estimated Creat Clear 162 Estimated GFR 97 Est GFR ( A
== END 2017-10-15 10:21 | disposition home or self-care (01) ==
LOC: ER 21:07 → 2ND 10-14 00:32
PROVIDERS: Admitting Provider Family Medicine; Emergency Provider Emergency Medicine; Family Provider Family Medicine; PCP Family Medicine; Visit Provider Family Medicine
DX: K63.89 Other specified diseases of intestine (principal); R10.9 Unspecified abdominal pain; E87.6 Hypokalemia; Z90.49 Acquired absence of other specified parts of digestive tract; F17.210 Nicotine dependence, cigarettes, uncomplicated; Z83.49 Family history of other endocrine, nutritional and metabolic diseases; Z83.3 Family history of diabetes mellitus; Z82.49 Family history of ischemic heart disease and other diseases of the circulatory system; R11.0 Nausea
CPT/HCPCS: 74177; 74250; 80048; 80053; 81001; 82150; 83690; 85025; 96365; 96375; 96376; 99284; G0378; J2405; Q9967

== ENCOUNTER → 2017-11-18 13:25 | Outpatient (POV) | payer OTHER, SELFPAY | PROVIDERS: PCP Family Medicine; Visit Provider Nurse Practitioner Acute Care | DX: Z00.00 Encounter for general adult medical examination without abnormal findings (principal) ==

== ENCOUNTER → 2018-01-06 15:15 | Outpatient (POV) | payer OTHER, SELFPAY | PROVIDERS: Visit Provider Nurse Practitioner Acute Care | DX: Z00.00 Encounter for general adult medical examination without abnormal findings (principal) ==

== ENCOUNTER → 2018-02-17 15:13 | Outpatient (POV) | payer OTHER, SELFPAY | PROVIDERS: Family Provider Family Medicine; Visit Provider Nurse Practitioner Acute Care | DX: Z00.00 Encounter for general adult medical examination without abnormal findings (principal) ==

== ENCOUNTER → 2018-04-24 10:50 | Outpatient (CLI) | payer OTHER, SELFPAY ==
--- NOTE | 2018-04-24 10:56 | US_ITS ---
US transvaginal HISTORY: Pelvic pain, dyspareunia, left lower quadrant pain ITS.REASON: Left Sided pain ORDERING PHYSICIAN: Neno Hanna MD PATIENT AGE: 28 years Comparison: None FINDINGS: The uterus is 8.7 x 4.7 x 4.8 cm. Combined endometrial thickness is 6 mm. No endometrial or uterine abnormalities apparent. There are small nabothian cysts present. The left ovary is 3.6 x 2.4 cm and contains small follicles. The right ovary is 3.2 x 1.9 cm and also contains small follicles. There is bilateral ovarian blood flow. No cul-de-sac fluid evident. IMPRESSION: Unremarkable pelvic ultrasound
== END ==
PROVIDERS: PCP Family Medicine; Visit Provider Nurse Practitioner Obstetrics & Gynecology
DX: R10.32 Left lower quadrant pain (principal)
CPT/HCPCS: 76830

== ENCOUNTER → 2018-09-11 09:51 | Outpatient (CLI) | payer OTHER, SELFPAY ==
--- NOTE | 2018-09-11 10:27 | CT_ITS ---
CT head/brain wo/w con HISTORY: Severe headache ITS.REASON: MIGRAINE ORDERING PHYSICIAN: MANJIT Cordoba PATIENT AGE: 28 years COMPARISON: None TECHNIQUE: Axial images obtained without and with contrast. 100 mL's Optiray 320 given IV. Brain and bone windows reviewed. All CT scans at the facility use one or more dose reduction, viz: automated exposure control, ma/kV adjustment per patient size (including targeted exams where dose is matched to indication, i.e. head), or iterative reconstruction technique. FINDINGS: No midline shift, mass effect, intracranial hemorrhage, hydrocephalus, or extra-axial fluid collection is evident. No enhancing lesions are evident. The calvarium has an unremarkable appearance. No mastoid effusion. No sinus air-fluid levels.. IMPRESSION: Negative CT head without and with contrast. No acute finding
== END ==
PROVIDERS: PCP Family Medicine; Visit Provider Physician Assistant
DX: G43.019 Migraine without aura, intractable, without status migrainosus (principal)
CPT/HCPCS: 70470; Q9967

== ENCOUNTER 2018-09-14 13:48 | Emergency (ER) | payer OTHER, SELFPAY ==
[2018-09-14 13:54] VITALS: BP 118/73; PULSE 57; RESP 16; TEMP 36.7; O2SAT 98; BMI 34.4
[2018-09-14 14:53] LABS: Basophils % 0.7 % (0.1-2.0); Eosinophils % 0.3 % (0.1-12.0); Hematocrit 39.4 % (37.0-47.0); Hemoglobin 13.2 g/dL (12.2-16.2); Lymphocytes % 44.8 % (10-50); Mean Corpuscular HGB Conc 33.5 g/dL (31.8-35.4); Mean Corpuscular Volume 89.4 fl (81-99); Monocytes # 0.4 K/mm3 (0.1-1.0); Monocytes % 7.9 % (1.7-9.3); Neutrophils # 2.1 K/mm3 (1.8-7.8); Neutrophils % 46.3 % (37.0-80.0); Platelet Count 104 K/mm3 (142-424); Red Blood Count 4.41 M/mm3 (4.20-5.40); White Blood Count 4.5 K/mm3 (4.8-10.8)
--- NOTE | 2018-09-14 15:04 | HMH.EDGENADL ---
ED Disposition Clinical Impression: Headache Qualifiers: Headache type: unspecified Headache chronicity pattern: acute headache Intractability: intractable Qualified Code(s): R51 - Headache Disposition: Home, Self-Care Condition on Discharge: Good Instructions: DI for Headache Additional Instructions: Additional instructions for HEADACHE: See neurologist tomorrow as scheduled. Return immediately if worsening headache, vomiting, problems with vision or speech, fever, numbness or weakness of the extremities, neck pain or stiffness. Additional instructions for CONTROLLED SUBSTANCES: You have been prescribed a medication that is a controlled substance. Controlled substances include pain medications known as opiates and sedative nerve medications known as benzodiazepines. Some common opiates include: Codeine (such as Tylenol #3) Hydrocodone (Vicodin, Lortab, Lorcet, [place]) Oxycodone (Percocet, Percodan, Oxycodone, Oxy IR) Some common benzodiazepines include: Diazepam (Valium) Lorazepam (Ativan) Alprazolam (Xanax) Clonazepam (Klonopin) Oxazepam (Serax) All of these controlled substances are highly addictive and frequently abused. Misuse can and frequently does lead to addiction as well as overdose and . Medication should be stored in a locked cabinet or other secure storage unit. Do not store the medication in a motor vehicle. Short term supplies, 3 days or less, are prescribed because of the highly addictive nature of the medication. Any of the controlled substance medication NOT taken should be disposed of properly and NOT SAVED. The recommended method of disposing of unused medications is: Place the medicines in a sealable plastic bag. If the medicine is a solid, crush it or add water to dissolve it. Add something undesirable (cat litter, coffee grounds, etc.) Dispose of sealed bag in household trash Do not flush or pour unused medicines down a sink or drain. Controlled substances should not be shared, given away or sold. Because of the addictive nature and frequent abuse, these medications are sometimes stolen. These medications should be kept in a safe place where they cannot be stolen. Do not keep them in your car or purse. Lost or stolen prescriptions for controlled substances WILL NOT BE REFILLED in this emergency department, regardless of whether a police report was filed. Referrals: Vidhi Delaney MD [Primary Care Provider] - - Critical Care Critical Care Time: No Attestation: On 09/14/18, the high probability of a clinically significant, sudden or life threatening deterioration of the following system(s) required my full and direct attention, intervention and personal management. The time I documented below is in addition to time spent performing reported procedures but includes the following listed in this critical care notation. Medical Decision Making - Danny Inquiry Pt receiving controlled substance: Yes Danny was queried for this patient: Yes Reference #:: [id number] Risks and benefits of using a controlled substance: were discussed with pt by me Comment: 1 rx for tramadol Vital Signs: 09/14/18 13:54 09/14/18 15:32 09/14/18 15:45 Temperature 98.1 F Temperature Source Oral Pulse Rate [Right Radial] 57 L 62 61 Respiratory Rate 16 20 20 Blood Pressure [Right Arm] 118/73 121/73 116/68 Blood Pressure Mean [Right Arm] 88 89 84 Blood Pressure Source [Right Arm] Automatic Cuff Automatic Cuff Automatic Cuff Blood Pressure Position [Right Arm] Supine Sitting Sitting 02 Sat by Pulse Oximetry 98 100 97 Oxygen Delivery Method Room Air Room Air Room Air 09/14/18 16:00 09/14/18 16:40 Temperature Temperature Source Pulse Rate [Right Radial] 53 L 58 L Respiratory Rate 20 Blood Pressure [Right Arm] 114/76 109/75 L Blood Pressure Mean [Right Arm] 88 86 Blood Pressure Source [Right Arm] Automatic Cuff Automatic Cuff Blood Pressure Position [Right Arm] Sitting 02 Sat by
--- NOTE | 2018-09-14 15:10 | PC.NURSE ---
KEVIN WALLIS at
[2018-09-14 15:11] LABS: Alanine Aminotransferase 173 U/L (12-78); Albumin Level 3.2 gm/dL (3.4-5.0); Alkaline Phosphatase 74 U/L (46-116); Anion Gap 13.8 mEq/L (5-15); Aspartate Amino Transferase 74 U/L (15-37); Bilirubin,Total 0.2 mg/dL (0.2-1.0); Blood Urea Nitrogen 10 mg/dL (7-18); Calcium 8.8 mg/dL (8.5-10.1); Carbon Dioxide 25 mmol/L (21.0-32.0); Chloride 105 mmol/L (98-107); Creatinine Clearance Estimated 157 mL/min (50-200); Creatinine,Serum 0.72 mg/dL (0.55-1.02); Estimated Glomerular Filt Rate 96 ml/min (>60); GFR (African American) 117 ML/MIN (>60); Globulin 3.3 gm/dl (1.3-3.2); Glucose 110 mg/dL (74-106); Potassium 3.8 mmoL/L (3.5-5.1); Sodium 140 mmol/L (136-145); Total Protein,Serum 6.5 gm/dL (6.4-8.2)
--- NOTE | 2018-09-14 15:23 | PC.NURSE ---
Pt moved to room 2 per MD request to do procedure.
--- NOTE | 2018-09-14 15:28 | PC.NURSE ---
consent signed for lumbar puncture at this time per ER MD request.
[2018-09-14 15:29] LABS: Microscopic, Urine URINE MICROSCOPIC (MICROSCOPIC)
[2018-09-14 15:32] VITALS: BP 121/73; PULSE 62; RESP 20; O2SAT 100
--- NOTE | 2018-09-14 15:34 | PC.NURSE ---
KEVIN WALLIS at
[2018-09-14 15:40] LABS: Appearance,Urine SL CLOUDY (Clear); Bilirubin,Urine Negative (Negative); Blood, Urine Negative (Negative); Color,Urine YELLOW (Yellow); Glucose,Urine (UA) Negative (Negative); Ketones,Urine Negative (Negative); Leukocyte Esterase,Urine Negative (Negative); Nitrate,Urine Negative (Negative); PH,Urine 7.5 (5.0-8.5); Protein,Urine Negative (Negative); Urobilinogen,Urine 0.2 EU/dl (0.2)
[2018-09-14 15:42] LABS: Urine Pregnancy, HCG Qual. Negative (Negative)
[2018-09-14 15:45] VITALS: BP 116/68; PULSE 61; RESP 20; O2SAT 97
--- NOTE | 2018-09-14 15:50 | PC.NURSE ---
notified ER MD pt HR is in 45-48 bpm, pt initial HR was 57 during triage. ER MD gave verbal order for EKG. Pt denies any other symptoms other than headache.
[2018-09-14 15:52] LABS: Bacteria,Urine 1+ /lpf
[2018-09-14 16:00] VITALS: BP 111/50; BP 114/76; PULSE 53; PULSE 66; RESP 20; O2SAT 94; O2SAT 96
--- NOTE | 2018-09-14 16:01 | PC.NURSE ---
pt family returned to BS at this time
[2018-09-14 16:15] LABS: Glucose,CSF 67 mg/dL (40-70)
[2018-09-14 16:23] LABS: Appearance,CSF Clear (Clear); Volume,CSF 3 mL
[2018-09-14 16:25] LABS: Red Blood Cell,CSF 3 cells/uL (0); White Blood Cell,CSF 2 cells/uL (0-5)
[2018-09-14 16:40] VITALS: BP 109/75; PULSE 58; O2SAT 98
[2018-09-14 16:46] LABS: Polynuclear WBCs,CSF 0 %
[2018-09-14 16:47] LABS: Mononuclear WBCs,CSF 100 %
[2018-09-14 17:20] LABS: Free Thyroxine Index 1.7 ug/dL (5.93-13.13); Thyroid Stimulating Hormone 4.43 uIU/ml (0.358-3.740); Triiodothryronine (T3) Uptake 28 % (31-39)
[2018-09-14 17:50] VITALS: BP 125/80; PULSE 72; RESP 20; TEMP 36.6; O2SAT 100
== END 2018-09-14 17:52 | disposition home or self-care (01) ==
PROVIDERS: Emergency Provider Emergency Medicine; PCP Family Medicine
DX: R51 Headache (principal); K21.9 Gastro-esophageal reflux disease without esophagitis; Z87.891 Personal history of nicotine dependence
CPT/HCPCS: 62270; 80053; 81001; 81025; 82945; 84155; 84436; 84443; 84479; 85025; 87070; 87205; 89051; 93005; 96365; 96375; 99285

== ENCOUNTER → 2018-09-30 08:52 | Outpatient (CLI) | payer OTHER, SELFPAY ==
--- NOTE | 2018-09-30 08:57 | MR_ITS ---
MR head/brain wo/w con HISTORY: Severe right-sided headaches ITS.REASON: new onset migraine ORDERING PHYSICIAN: Samreen Longoria MD PATIENT AGE: 28 years Comparison: 09/11/2018 TECHNIQUE: Standard multiplanar multiecho sequences are performed without and with 17 mL's ProHance . FINDINGS: No midline shift, mass effect, intracranial hemorrhage, hydrocephalus, or acute cortical infarction is evident. There is normal romero-white matter differentiation with no significant white matter signal alteration. The cerebellopontine angles, cerebellum, and brainstem are unremarkable. No enhancing lesions are evident. The hippocampal gyri are unremarkable and the temporal horns are symmetric. The pituitary, optic chiasm, and craniocervical junction are unremarkable with no significant cerebellar ectopia. The upper cervical spinal cord has an unremarkable appearance. No acute calvarial abnormality. No sinus air-fluid level or mastoid effusion. Lobular mucosal thickening involves the floor of both maxillary sinuses with a left maxillary sinus retention cyst at 1 cm. There is increased T2 signal involving the left aspect of the clivus. Review of previous CT scan of 09/11/2018 shows a well-circumscribed area of lucency involving the left aspect of the clivus 14 x 10 mm. This does show some heterogeneous increased T2 signal on the MRI and overall has benign features on the CT scan without evidence of expansion or intracranial extension. IMPRESSION: 1. No acute intracranial findings. 2. Benign-appearing lucent lesion of the left aspect of the clivus just posterior to the sphenoid sinus. Recommend [address] follow-up to confirm stability 3. Mild maxillary sinus disease
--- NOTE | 2018-09-30 08:57 | MR_ITS ---
MR angio head wo con CLINICAL INDICATION: Severe headaches ITS.REASON: new onset migraine ORDERING PHYSICIAN: Samreen Longoria MD PATIENT AGE: 28 years Comparison: None TECHNIQUE: 3-D anqy-sf-aobyef images are obtained without contrast with multiplanar MIP reformats FINDINGS: No aneurysm, arteriovenous malformation, or major intracranial occlusive process is evident. Single shot MRV images unremarkable. IMPRESSION: Negative MRA of the brain
== END ==
PROVIDERS: PCP Family Medicine; Visit Provider Specialist
DX: G43.909 Migraine, unspecified, not intractable, without status migrainosus (principal); R42 Dizziness and giddiness; R68.89 Other general symptoms and signs
CPT/HCPCS: 70544; 70553; A9576

== ENCOUNTER → 2018-11-10 07:56 | Outpatient (CLI) | payer OTHER, SELFPAY ==
[2018-11-10 08:17] LABS: Basophils % 0.7 % (0.1-2.0); Eosinophils # 0.1 K/mm3 (0.0-0.4); Eosinophils % 2.6 % (0.1-12.0); Hematocrit 42.3 % (37.0-47.0); Hemoglobin 13.9 g/dL (12.2-16.2); Lymphocytes # 1.3 K/mm3 (0.7-4.5); Lymphocytes % 45.8 % (10-50); Mean Corpuscular HGB Conc 32.7 g/dL (31.8-35.4); Mean Corpuscular Hemoglobin 29.9 pg (27.0-31.2); Mean Corpuscular Volume 91.3 fl (81-99); Monocytes # 0.2 K/mm3 (0.1-1.0); Monocytes % 8.3 % (1.7-9.3); Neutrophils # 1.2 K/mm3 (1.8-7.8); Neutrophils % 42.5 % (37.0-80.0); Platelet Count 197 K/mm3 (142-424); Red Blood Count 4.64 M/mm3 (4.20-5.40); Red Cell Distribution Width 14.4 % (11.5-17.5); White Blood Count 2.8 K/mm3 (4.8-10.8)
== END ==
PROVIDERS: Visit Provider Nurse Practitioner Family
DX: G43.909 Migraine, unspecified, not intractable, without status migrainosus (principal); J34.9 Unspecified disorder of nose and nasal sinuses; R23.8 Other skin changes; R90.89 Other abnormal findings on diagnostic imaging of central nervous system
CPT/HCPCS: 36415; 85025

== ENCOUNTER → 2019-01-06 14:59 | Outpatient (CLI) | payer OTHER, SELFPAY ==
--- NOTE | 2019-01-06 15:00 | CT_ITS ---
CT head/brain wo/w con HISTORY: ITS.REASON: evaluation for clivus lesion per radiologist req ORDERING PHYSICIAN: Seb Lopez APRN PATIENT AGE: 28 years COMPARISON: 09/11/2018 TECHNIQUE: Axial images obtained without and with contrast. Brain and bone windows reviewed. All CT scans at the facility use one or more dose reduction, viz: automated exposure control, ma/kV adjustment per patient size (including targeted exams where dose is matched to indication, i.e. head), or iterative reconstruction technique. FINDINGS: No midline shift, mass effect, intracranial hemorrhage, hydrocephalus, or extra-axial fluid collection is evident. No enhancing lesions are evident. A fairly well-circumscribed lucent lesion is once again noted involving the left aspect of the clivus at 14 x 11 mm. The size is not significant change. There is some irregularity of the bony margin along the left lateral aspect of the lesion with minimal thinning of the cortex anteriorly along the left lateral aspect. There is also some slight increased density within the internal matrix of the lesion suggesting early mineralization/calcification. No intracranial extension is evident. IMPRESSION: 1. The lucent lesion of the clivus on the left is not significantly changed . The left lateral margin is somewhat irregular with some cortical thinning of the anterior margin. There is some faint density centrally suggesting calcification. This may merely represent asymmetric arrested pneumatization of the sphenoid. One cannot exclude the possibility of more ominous lesion such as chondrosarcoma however, there is been no significant change. Chordoma is also a consideration. Suggest continued follow-up in 8 months to confirm one-year stability.
== END ==
PROVIDERS: PCP Family Medicine; Visit Provider Nurse Practitioner Family
DX: G43.919 Migraine, unspecified, intractable, without status migrainosus (principal); G93.9 Disorder of brain, unspecified
CPT/HCPCS: 70470; Q9967

== ENCOUNTER → 2019-06-12 12:19 | Outpatient (CLI) | payer OTHER, SELFPAY ==
[2019-06-12 12:20] LABS: Adenovirus F 40/41, stool Not Detected (NotDetected); Astrovirus Not Detected (NotDetected); Campylobacter Not Detected (NotDetected); Clostridium Difficile A/B, PCR Not Detected (NotDetected); Cryptosporidium Not Detected (NotDetected); Cyclospora Cayetanesis Not Detected (NotDetected); Entamoeba histolytica Not Detected (NotDetected); Enteroaggregative E coli Not Detected (NotDetected); Enteropathogenic E coli Not Detected (NotDetected); Enterotoxigenic E coli Not Detected (NotDetected); Norovirus Not Detected (NotDetected); Plesimonas Shigalloides, PCR Not Detected (NotDetected); Rotavirus A Not Detected (NotDetected); Salmonella, PCR Not Detected (NotDetected); Sapovirus Not Detected (NotDetected); Shiga-like toxin E coli Not Detected (NotDetected); Shigella Enterovasive E coli Not Detected (NotDetected); Vibrio Cholerae Not Detected (NotDetected); Vibrio, PCR Not Detected (NotDetected); Yersinia Entercolitica, PCR Not Detected (NotDetected)
[2019-06-12 15:32] LABS: Giardia lamblia Detected (NotDetected)
== END ==
PROVIDERS: Visit Provider Physician Assistant
DX: K52.9 Noninfective gastroenteritis and colitis, unspecified (principal)
CPT/HCPCS: 87507

== ENCOUNTER → 2019-07-14 14:29 | Outpatient (CLI) | payer OTHER, SELFPAY | PROVIDERS: PCP Family Medicine; Visit Provider Specialist | DX: G43.919 Migraine, unspecified, intractable, without status migrainosus (principal); G47.00 Insomnia, unspecified; R40.0 Somnolence; R53.83 Other fatigue | CPT/HCPCS: 95806 ==

== ENCOUNTER → 2019-08-29 12:52 | Outpatient (CLI) | payer OTHER, SELFPAY | PROVIDERS: Visit Provider Family Medicine | DX: N39.0 Urinary tract infection, site not specified (principal) | CPT/HCPCS: 87086 ==

== ENCOUNTER → 2019-09-29 16:20 | Outpatient (CLI) | payer OTHER, SELFPAY ==
--- NOTE | 2019-09-29 16:26 | XR_ITS ---
PROCEDURE: XR FOOT WT BEARING LT 3V CLINICAL INDICATION: bunion pain COMPARISON: No exams were available for comparison FINDINGS: No fracture or dislocation. No lytic or blastic change. There is normal mineralization. Mild hallux valgus with minimal hypertrophic change of the distal aspect of the 1st metatarsal. Other findings:None. IMPRESSION: Mild hallux valgus, no acute finding Dictated by: Daquan Grace MD 09/29/2019 17:08 Electronically signed by Daquan Grace MD in [place] 09/29/2019 17:08
--- NOTE | 2019-09-29 16:26 | XR_ITS ---
PROCEDURE: XR FOOT WT BEARING RT 3V CLINICAL INDICATION: bunion pain COMPARISON: No exams were available for comparison FINDINGS: No fracture or dislocation. No lytic or blastic change. There is normal mineralization. The joint spaces are well-preserved. No significant degenerative/arthritic changes. No erosive changes evident. Other findings:Mild hallux valgus with mild hypertrophic change of the distal aspect of the 1st metatarsal. Minimal spurring is present along the dorsal and proximal aspect of the navicular IMPRESSION: Hallux valgus, no acute finding Dictated by: Daquan Grace MD 09/29/2019 17:07 Electronically signed by Daquan Grace MD in [place] 09/29/2019 17:07
== END ==
PROVIDERS: PCP Family Medicine; Visit Provider Podiatrist
DX: M79.672 Pain in left foot (principal); M79.671 Pain in right foot
CPT/HCPCS: 73630

== ENCOUNTER → 2020-01-07 17:01 | Outpatient (CLI) | payer OTHER, SELFPAY ==
--- NOTE | 2020-01-07 17:21 | XR_ITS ---
PROCEDURE: XR CHEST 2V CLINICAL HISTORY: FORMER SMOKER COMPARISON: No exams were available for comparison FINDINGS: The cardiomediastinal silhouette and pulmonary vascularity are within normal limits. The lungs are clear without infiltrates, suspicious nodules, or pleural effusions. No acute bony abnormalities. IMPRESSION: No acute findings. Dictated by: Daquan Grace MD 01/07/2020 17:55 Electronically signed by Daquan Grace MD in [place] 01/07/2020 17:55
[2020-01-07 17:30] LABS: Basophils % 0.4 % (0.1-2.0); Eosinophils # 0.1 K/mm3 (0.0-0.4); Eosinophils % 1.9 % (0.1-12.0); Hematocrit 39.5 % (37.0-47.0); Hemoglobin 13.3 g/dL (12.2-16.2); Lymphocytes # 2.2 K/mm3 (0.7-4.5); Lymphocytes % 40.3 % (10-50); Mean Corpuscular HGB Conc 33.7 g/dL (31.8-35.4); Mean Corpuscular Hemoglobin 29.4 pg (27.0-31.2); Mean Corpuscular Volume 87.3 fl (81-99); Monocytes # 0.4 K/mm3 (0.1-1.0); Monocytes % 7.4 % (1.7-9.3); Neutrophils # 2.7 K/mm3 (1.8-7.8); Neutrophils % 49.9 % (37.0-80.0); Platelet Count 199 K/mm3 (142-424); Red Blood Count 4.52 M/mm3 (4.20-5.40); White Blood Count 5.3 K/mm3 (4.8-10.8)
--- NOTE | 2020-01-07 17:33 | ECG_ITS ---
APPROVED REPORT Exam: Resting ECG HR:68 bpm ECG Measurements Heart Rate [address] 138 P 33 QRSd 84 QRS 4 QT 400 T 7 QTc 425 <Conclusion> Normal sinus rhythm Normal ECG Electronically signed by : Andrew Braun, 01/08/2020 14:08:00
[2020-01-07 20:26] LABS: Alanine Aminotransferase 16 U/L (12-78); Albumin Level 4.2 g/dl (3.5-5.0); Albumin/Globulin Ratio 1.6 (1.1-1.8); Alkaline Phosphatase 51 U/L (38-126); Aspartate Amino Transferase 27 U/L (14-36); Blood Urea Nitrogen 10 mg/dl (7-17); Calcium 9.3 mg/dl (8.4-10.2); Carbon Dioxide 30 mmol/L (22.0-30.0); Chloride 101 mmol/L (98-107); Estimated Glomerular Filt Rate 85 ml/min (>60); GFR (African American) 103 ML/MIN (>60); Globulin 2.7 g/dL (1.3-3.2); Glucose 93 mg/dl (74-100); Sodium 139 mmol/L (136-145); Total Protein,Serum 6.9 g/dl (6.3-8.2)
[2020-01-07 20:29] LABS: Bilirubin,Total 0.1 mg/dl (0.2-1.3)
== END ==
PROVIDERS: PCP Family Medicine; Visit Provider Podiatrist
DX: Z01.818 Encounter for other preprocedural examination (principal); M20.12 Hallux valgus (acquired), left foot; M21.612 Bunion of left foot; Z87.891 Personal history of nicotine dependence
CPT/HCPCS: 36415; 71046; 80053; 85025; 93005

== ENCOUNTER → 2020-01-25 12:03 | Outpatient (CLI) | payer OTHER, SELFPAY ==
[2020-01-25 14:54] LABS: Coronavirus 19 IgG Antibody Negative (Negative); Coronavirus 19 IgM Antibody Negative (Negative)
== END ==
PROVIDERS: Visit Provider Podiatrist
DX: Z01.818 Encounter for other preprocedural examination (principal)
CPT/HCPCS: 36415; 86328

== ENCOUNTER 2020-01-27 06:19 | Day surgery (SDC) | payer OTHER, SELFPAY ==
[2020-01-27] VITALS (11 sets, daily range): BP systolic 110–144; BP diastolic 63–88; PULSE 76–102; RESP 12–18; TEMP 36.1–43; O2SAT 96–100; BMI 37.5
[2020-01-27 07:24] LABS: Urine Pregnancy, HCG Qual. Negative (Negative)
--- NOTE | 2020-01-27 07:59 | HMH.ANESCL ---
[facility] Anesthesia Checklist - Patient Identification Patient Identification: Arm Band - Structural Data Admitted From: Home Planned Operative Procedure/s: right foot lapidus bunionectomy Consent for Planned Operative Procedure(s) Verified: Yes Verified Documents: Surgical Consent, History and Physical - NPO Status Verified Time NPO: 00:00 - Additional verifications Anesthesia Reactions: No Hx Blood Transfusions: No Blood Transfusion Reaction: No - Airway Assessment C-Spine Mobility Assessed: Yes (mp2) TMJ Mobility Assessed: Yes Dentition: Good Dentition - Neurological Assessment Level of Consciousness: Awake, Alert - Anesthesia Plan Anesthesia Risk discussed: Yes Anesthesia Plan: Verified ASA Class: II Anesthesia Type: General w/block (risks/benefits of nerve block explained. Pt verbalizes understanding) [facility] History I have reviewed the patient's past medical history: Yes Medical History: Reports:: Anxiety, Depression, Gastroesophageal Reflux Disease(GERD), Migraine Denies:: Atherosclerotic Heart Disease, Cancer, Congestive Heart Failure, Chronic Obstructive Pulmonary Disease (COPD), Diabetes Mellitus Type 1, Diabetes Mellitus Type 2, Hypertension, Internal Pacemaker, MRSA, Seizures *Have you ever received a pneumonia vaccine?: No *Have you received a flu vaccine this season?: Yes Other Medical History: Denies: Blood Transfusion Reaction Anesthesia experience/problems:: nac Laterality Cases: Bilateral: Myringotomy (Ear Tubes) Other Surgeries: Yes: Cholecystectomy, Tubal Ligation, Other. No: Pacemaker Amputation: No Fractures: Yes (rt leg) - *Social History Educational Level: Completed High School Smoking Status: Former smoker Tobacco Type: cigarettes # Packs/Day (cigarettes): 1 #Yrs smoked (if former smoker): 17 Smoking End Date: 05/29/2018 Alcohol Intake: current Alcohol Intake Frequency:: holidays/special occasions only Substance Use Type: denies use *Occupational Status:: employed Housing: house Household Members: spouse, children *Travel in the last 8 weeks: None - Psychiatric History Pschychiatric History:: Reports:: Anxiety, Depression Family Hx:: Diabetes, Heart Attack, Hypertension, Thyroid Disorder
--- NOTE | 2020-01-27 08:18 | HMH.OPNOTE ---
Date of procedure: 01/27/20 Pre-op Diagnosis:: 1. Right hallux valgus 2. Right hallux interphalangus 3. Right gastroc equinus 4. Right posterior tibial tendonitis/tear 5. Right foot exostosis Post-op Diagnosis:: Same Procedure performed:: 1. Right lapidus bunionectomy 2. Right gastrocnemius recession 3. Right posterior tibial tendon debridement and repair 4. Right foot exostectomy 5. Application of posterior splint Surgeon:: Elizabeth Bullock DPM HIGH SCHOOL DRAFTING TEACHER:: Marlon Pickard Anesthesia: GETA, regional (Right popliteal nerve block) Estimated blood loss (mL): 20 Clinical Note:: X-rays 3 views weightbearing bilateral feet taken 10/26/2019, evaluated by myself. Report noted. There is a hallux valgus deformity noted bilaterally, right greater than left. Mild hypertrophic changes noted to the distal aspect of the first metatarsal. Minimal spurring present along the dorsal proximal aspect of the navicular. Mild decrease in the medial arch consistent with pes planus. Adductovarus rotation and fifth metatarsal head prominence consistent with tailor's bunionette. Bunion Pre-op: Ms. Brandt is a 29-year-old female who presents with bilateral bunions. We discussed conservative versus surgical treatment options. Conservative treatment options include change shoe wear, prefab or custom molded inserts, strapping, taping and padding. Conservative care has included: Modification of shoe gear, wide deep shoes with arch supports, Darco splint, toe spacers, Voltaren gel, Mobic and modification of activity. After a long discussion with the patient in regards to the conservative versus surgical treatment for the bunion deformity, the patient has elected to proceed with surgery because they have failed conservative treatment and continue to have pain and worsening symptoms affecting daily activities. The patient has been instructed on the planned procedure, all risk versus benefits of the procedure to include bleeding, infection, nerve and blood vessel damage, need for further surgery, delay in healing of soft tissue or bone, failure of bones to heal, non-union, mal-union, prolonged pain and recovery, prolonged swelling, CRPS/RSD, DVT and anesthetic complications. No guarantees were given. All questions fully answered. The patient verbalized understanding and agreed to proceed with surgery. Written consent was obtained. We did discuss hammertoe repair and tailor's bunionectomy. Patient states this area is not painful at this time. We can continue to monitor and if symptoms noted can proceed with surgical intervention at these areas as well. Medical clearance per PCP, Leobardo Sam. Necessary labs and pre-op testing ordered: CBC, CMP, EKG, CXR. She will need Rx for [place] 7.5/325 # 28, Zofran 4mg, Motrin 800mg # 60. We discussed in detail risk of DVT versus PE. Patient is not on control currently. She has her tubes tied. Discussed lower risk for DVT, risk factors include immobilization and obesity. Patient can take aspirin 81 mg postoperatively for DVT prophylaxis. Patient will need crutches on the DOS. Recommended rolling knee scooter as well for NWB. Operative findings:: Right bunion deformity with thickened medial capsule. Attenuation anterior noted at the insertion of the posterior tibial tendon. Gastrocnemius equinus deformity noted. First metatarsal cartilage intact centrally. Operative note:: On this date and time, the patient was deemed an appropriate surgical candidate. With informed consent signed, the patient was taken to the operating theater. The patient was positioned supine. General anesthesia was induced. Tourniquet was applied to the RIGHT mid-calf. The RIGHT lower extremity was prepped and draped in normal sterile fashion. RIGHT GASTROCNEMIUS RECESSION: Attention was directed to the posterior leg medially a linear incision was mapped out. Dissection was carried through the skin to subcutaneous tissue with care taken to maintain surgical hemostasis and safely retract
--- NOTE | 2020-01-27 10:42 | XR_ITS ---
PROCEDURE: XR FOOT RT 2V CLINICAL INDICATION: LAPIDUS,BUNIONECTOMY COMPARISON: XR FOOT WT BEARING RT 3V from 09/29/2019 XR FOOT WT BEARING LT 3V from 09/29/2019 FINDINGS: Fluoroscopy time: 47 seconds. Status post fusion of the 1st metatarsal tarsal joint and transverse screw through the base of the 1st and 2nd metatarsals with bunionectomy IMPRESSION: Postsurgical changes Dictated by: Daquan Grace MD 01/27/2020 14:28 Electronically signed by Daquan Grace MD in [place] 01/27/2020 14:28
--- NOTE | 2020-01-27 11:00 | XR_ITS ---
PROCEDURE: XR FOOT RT MIN 3V CLINICAL INDICATION: Post op HAV Pain COMPARISON: XR FOOT WT BEARING RT 3V from 09/29/2019 XR FOOT WT BEARING LT 3V from 09/29/2019 XR FOOT RT 2V from 01/27/2020 FINDINGS: Status post medial bone plate placement at the 1st metatarsal tarsal joint with a transverse screw through the base of the 1st and 2nd metatarsals. There is good alignment. Posterior splint is present. The joint spaces are well-preserved. No significant degenerative/arthritic changes. No erosive changes evident. Status post bunionectomy Other findings:None. IMPRESSION: Postsurgical changes Dictated by: Daquan Grace MD 01/27/2020 14:28 Electronically signed by Daquan Grace MD in [place] 01/27/2020 14:28
--- NOTE | 2020-01-27 11:20 | HMH.ANESI ---
[facility] Anesthesia Record Part I Intake, IV Amount: 2,400 Estimated blood loss (mL): 0 Urine output (mL): 0 Blood Pressure: 144/78 SaO2: 97 Pulse Rate: 90 Respiratory Rate: 12 Temperature: 97.8 F Patient is:: Awake, Stable Stable to PACU at:: 11:15
--- NOTE | 2020-01-27 11:36 | PC.NURSE ---
1123-pt vomitted moderate amount of bile tinged emesis, medicated per MAR w/Phenergan 6.25mg in 25ml's of NS, vss, will continue to monitor 1130-radiology at bedside, pt reports nausea is easing, vss-HR improving, pt denies pain 1138-pt resting easier at this time, reports nausea continues to ease, drinking sips of water w/out difficulty, will continue to monitor
--- NOTE | 2020-01-27 11:51 | PC.NURSE ---
1142-detailed report called to ANNMARIE Burleson 1145-pt transported to post op via stretcher w/ emmett rails up and left in care of ANNMARIE Burleson with bed locked in lowest position, vss, pt stable
--- NOTE | 2020-01-28 10:08 | P.PN_ITS ---
[facility] Anesthesia Record Part II Discharge Time: 11:45 Destination: Surgical Day Care (OP Surgery) PACU nurse assessment reviewed?: Yes Patient Condition:: Good Anesthesia Complications:: None Swallowing reflex intact?: Yes Cyanosis?: No Blood Pressure: 113/71 Pulse Rate: 94 Temperature: 97.5 F Mental Status: Alert & Oriented Pain level:: 0 Nausea and/or vomitting:: None Intake, IV Amount: 0
[2020-01-28 10:09] VITALS: BP 113/71; PULSE 94; TEMP 36.4
== END 2020-01-27 12:31 | disposition home or self-care (01) ==
PROVIDERS: PCP Family Medicine; Visit Provider Podiatrist
PROC: (CPT 28297; principal; 2020-01-27 08:30)
DX: M20.11 Hallux valgus (acquired), right foot (principal); M66.371 Spontaneous rupture of flexor tendons, right ankle and foot; M21.6X1 Other acquired deformities of right foot; M21.41 Flat foot [pes planus] (acquired), right foot
CPT/HCPCS: 28297; 27687; 28200; 73620; 73630; 81025; 96374; C1713; C1776; J2405

== ENCOUNTER → 2020-02-25 07:30 | Outpatient (CLI) | payer OTHER, SELFPAY ==
--- NOTE | 2020-02-25 07:35 | XR_ITS ---
PROCEDURE: XR FOOT WT BEARING RT 3V CLINICAL INDICATION: post-op Follow-up surgery COMPARISON: XR FOOT WT BEARING RT 3V from 09/29/2019 XR FOOT WT BEARING LT 3V from 09/29/2019 XR FOOT RT MIN 3V from 01/27/2020 XR FOOT RT 2V from 01/27/2020 FINDINGS: Status post arthrodesis of the 1st metatarsal tarsal joint and the proximal aspect of the 1st and 2nd metatarsals. There is a lucency involving base of the transverse screw extending through the base of the 1st and 2nd metatarsals. While this could be due to artifact, 1 cannot exclude the possibility of a screw fracture. Follow-up is suggested. No displacement. Otherwise negative IMPRESSION: Prior arthrodesis of the 1st metatarsal tarsal junction of the base of the 1st and 2nd metatarsals with possible fracture through the base of the transverse screw into the 1st and 2nd metatarsals Dictated by: Daquan Grace MD 02/26/2020 08:14 Electronically signed by Daquan Grace MD in [place] 02/26/2020 08:14
== END ==
PROVIDERS: PCP Family Medicine; Visit Provider Podiatrist
DX: M79.671 Pain in right foot (principal); Z98.890 Other specified postprocedural states
CPT/HCPCS: 73630

== ENCOUNTER → 2020-03-14 15:17 | Outpatient (CLI) | payer OTHER, SELFPAY ==
--- NOTE | 2020-03-14 15:20 | XR_ITS ---
PROCEDURE: XR FOOT WT BEARING RT 3V CLINICAL INDICATION: post-op Follow-up surgery COMPARISON: CR XR FOOT WT BEARING LT 3V from 09/29/2019 CR XR FOOT RT MIN 3V from 01/27/2020 CR XR FOOT RT 2V from 01/27/2020 CR XR FOOT WT BEARING RT 3V from 02/25/2020 FINDINGS: No change status post fusion of the 1st metatarsal tarsal joint with a transverse screw stabilizing the base of the 1st and 2nd metatarsals. There remains good alignment not significantly changed. Previously there was a question of a fracture of the screw neck extending from the base of the 1st and 2nd metatarsals. The lucency previously noted is somewhat less apparent and may have been artifactual nature The joint spaces are well-preserved. No significant degenerative/arthritic changes. No erosive changes evident. Other findings:None. IMPRESSION: Good alignment status post 1st metatarsal tarsal fusion Dictated by: Daquan Grace MD 03/14/2020 17:59 Daquan Grace MD in [place] 03/14/2020 17:59
[2020-03-14 17:29] LABS: Basophils % 0.5 % (0.1-2.0); Eosinophils # 0.1 K/mm3 (0.0-0.4); Eosinophils % 2.2 % (0.1-12.0); Hematocrit 37.3 % (37.0-47.0); Hemoglobin 12.7 g/dL (12.2-16.2); Lymphocytes # 2.2 K/mm3 (0.7-4.5); Mean Corpuscular HGB Conc 33.9 g/dL (31.8-35.4); Mean Corpuscular Volume 88.3 fl (81-99); Mean Platelet Volume 7.5 fl (7.4-10.4); Monocytes # 0.4 K/mm3 (0.1-1.0); Monocytes % 7.3 % (1.7-9.3); Neutrophils # 2.6 K/mm3 (1.8-7.8); Platelet Count 198 K/mm3 (142-424); Red Blood Count 4.23 M/mm3 (4.20-5.40); Red Cell Distribution Width 14.8 % (11.5-17.5); White Blood Count 5.3 K/mm3 (4.8-10.8)
[2020-03-14 18:01] LABS: Alanine Aminotransferase 20 U/L (12-78); Albumin/Globulin Ratio 1.5 (1.1-1.8); Alkaline Phosphatase 63 U/L (38-126); Anion Gap 11.8 mEq/L (5-15); Aspartate Amino Transferase 31 U/L (14-36); Bilirubin,Total 0.6 mg/dl (0.2-1.3); Blood Urea Nitrogen 10 mg/dl (7-17); Calcium 9.4 mg/dl (8.4-10.2); Carbon Dioxide 28 mmol/L (22.0-30.0); Chloride 102 mmol/L (98-107); Estimated Glomerular Filt Rate 99 ml/min (>60); GFR (African American) 120 ML/MIN (>60); Globulin 2.6 g/dL (1.3-3.2); Glucose 88 mg/dl (74-100); Potassium 3.8 mmoL/L (3.5-5.1); Sodium 138 mmol/L (136-145); Total Protein,Serum 6.6 g/dl (6.3-8.2)
[2020-03-14 18:06] LABS: C-Reactive Protein 1.3 mg/L (0-4)
[2020-03-14 18:19] LABS: Erythrocyte Sedimentation Rate 10 mm/hr (0-20)
== END ==
PROVIDERS: PCP Family Medicine; Visit Provider Podiatrist
DX: L03.115 Cellulitis of right lower limb (principal); Z98.890 Other specified postprocedural states
CPT/HCPCS: 36415; 73630; 80053; 85025; 85651; 86140; 87070; 87077; 87186; 87205

== ENCOUNTER → 2020-03-14 17:12 | Outpatient (CLI) | payer OTHER, SELFPAY | PROVIDERS: Visit Provider Podiatrist | DX: M20.11 Hallux valgus (acquired), right foot (principal) | CPT/HCPCS: 36415; 80053; 85025; 85651; 86140; 87070; 87205 ==

== ENCOUNTER 2020-03-15 16:30 | Outpatient (RCR) | payer OTHER, SELFPAY ==
--- NOTE | 2020-03-04 16:11 | HMH.PTOPEV ---
PT Outpatient Evaluation Rehab PT Outpatient Evaluation Start: 03/04/20 15:18 Freq: Status: Active Protocol: Document 03/04/20 15:53 JESSICA (Rec: 03/04/20 16:10 [email or web address] [id number]) Electronically Signed By Chirag Motley, PT 03/04/20 15:53 Outpatient Therapy Subjective History Subjective History Patient is a 29 year old female presenting to outpatient PT with reports of post-surgical foot/ankle pain S/P L bunionectomy, gastroc resecion and posterior tibialis debridement 01/27/20. Pt reports MD orders WB at 50- 75% currently. Pt reports 5-6 year hx of L foot pain prior to surgery. No other comorbidities to report. Chief Complaint Pain,Stiff,Swelling,Weakness Symptom Type Ache,Sharp Symptoms Relieved By Rest/Positioning,Ice,OTC Meds Symptoms Aggravated By Standing,Physical Activity, Walking Prior Functional Limitations Standing,Walking Current Functional Limitations Housework,Standing,Squatting, Recreation Activity,Walking, Stairs,Balance Symptom Description Intermittent Level of pain today (0-10) 0 Pain scale - at its best (0-10) 0 Pain scale - at its worst (0-10) 7 Ankle/Foot Eval Assistive Device Ambulation Assistive Device Axillary Crutches Palpation Tenderness left Ankle/Foot Palpation Findings Tenderness Ankle/Foot Palpation Overall Comment surgical incision, medial head of gastroc 3/4 ROM Ankle/Foot Dorsiflexion w/Knee Extended -9 Active Range Motion (degrees) Ankle/Foot Dorsiflexion w/Knee Extended -1 Passive Range (degrees) Ankle/Foot Plantar Flexion Active Range 55 of Motion (degrees) Ankle/Foot Plantar Flexion Passive Range 60 of Motion (degrees) Ankle/Foot Eversion Active Range of 11 Motion (degrees) Ankle/Foot Eversion Passive Range of 15 Motion (degrees) Ankle/Foot Inversion Active Range of 25 Motion (degrees) Ankle/Foot Inversion Passive Range of 28 Motion (degrees) Ankle/Foot ROM Limitations Soft Tissue Tightness,Bony Restriction Great Toe Metatarsophalangeal Extension 10 Active Range Motion (degrees) Great Toe Metatarsophalangeal Flexion 12 Active Range of Motion (degrees) Great Toe ROM Limitations Soft Tissue Tightness,Bony Restriction MMT Ankle Dorsiflexion Strength
== END 2020-03-15 17:20 | disposition home or self-care (01) ==
LOC: PT 16:30
PROVIDERS: PCP Family Medicine; Visit Provider Podiatrist
DX: M79.671 Pain in right foot; Z98.890 Other specified postprocedural states
CPT/HCPCS: 97110; 97163

== ENCOUNTER → 2020-03-23 10:56 | Outpatient (CLI) | payer OTHER, SELFPAY ==
--- NOTE | 2020-03-23 10:57 | CT_ITS ---
PROCEDURE: CT FOOT RT WO/W CON CLINICAL HISTORY: pain, hardware failure PAIN HARDWARE FAILURE, STAPH INFECTION OPEN WOUND COMPARISON: CR XR FOOT WT BEARING RT 3V from 03/14/2020 TECHNIQUE: Axial images obtained with sagittal and coronal reformats. All CT scans at the facility use one or more dose reduction, viz: automated exposure control, ma/kV adjustment per patient size (including targeted exams where dose is matched to indication, i.e. head), or iterative reconstruction technique. FINDINGS: Axial images are obtained without and with contrast enhancement. There has been prior arthrodesis with a dorsal medial bone plate at the 1st metatarsal tarsal junction with 4 cortical screws an additional oblique screw through the 1st metatarsal tarsal junction and a transverse screw through the base of the 1st and 2nd metatarsals. There was a question at this screw might have a fracture at its neck on a previous radiograph. The bone plate appears to be in place and the multiple screws appear to be intact. No evidence of screw fracture or bone plate fracture. Mild subcutaneous soft tissue swelling is present along the medial aspect of the ankle and the dorsal medial aspect of the foot. No abscess is evident. No abnormal areas of enhancement. No bony erosive change that would suggest osteomyelitis. Cortical regularity involves the distal aspect of the 1st metatarsal may be due to prior bunionectomy. IMPRESSION: 1. Prior arthrodesis of the 1st metatarsal tarsal junction and with a cortical screw at the base of the 1st and 2nd metatarsal. No evidence of screw or bone plate fracture. 2. No obvious abscess or evidence of osteomyelitis. 3. Mild soft tissue swelling along the dorsal medial aspect of the foot. 4. Cortical defect of the distal and medial aspect of the 1st metatarsal presumed from a prior bunionectomy. Dictated by: Daquan Grace MD 03/24/2020 08:55 Daquan Grace MD in [place] 03/24/2020 08:55
== END ==
PROVIDERS: PCP Family Medicine; Visit Provider Podiatrist
DX: G89.18 Other acute postprocedural pain (principal); T81.31XA Disruption of external operation (surgical) wound, not elsewhere classified, initial encounter; Z96.9 Presence of functional implant, unspecified
CPT/HCPCS: 73702; Q9967

== ENCOUNTER → 2020-03-29 07:08 | Outpatient (CLI) | payer OTHER, SELFPAY ==
[2020-03-29 10:27] LABS: Coronavirus 19 IgG Antibody Negative (Negative); Coronavirus 19 IgM Antibody Negative (Negative)
== END ==
PROVIDERS: Visit Provider Podiatrist
DX: Z01.818 Encounter for other preprocedural examination (principal); M21.621 Bunionette of right foot
CPT/HCPCS: 36415; 86328

== ENCOUNTER 2020-03-30 06:33 | Day surgery (SDC) | payer OTHER, SELFPAY ==
[2020-03-28 15:32] VITALS: BMI 38.4
[2020-03-30] VITALS (16 sets, daily range): BP systolic 92–141; BP diastolic 68–84; PULSE 66–99; RESP 12–21; TEMP 36.3–43; O2SAT 96–100
[2020-03-30 07:48] LABS: Urine Pregnancy, HCG Qual. Negative (Negative)
[2020-03-30 08:00] LABS: Basophils % 0.6 % (0.1-2.0); Eosinophils # 0.1 K/mm3 (0.0-0.4); Eosinophils % 4.1 % (0.1-12.0); Hematocrit 41.6 % (37.0-47.0); Hemoglobin 13.9 g/dL (12.2-16.2); Lymphocytes # 1.5 K/mm3 (0.7-4.5); Lymphocytes % 42.1 % (10-50); Mean Corpuscular HGB Conc 33.5 g/dL (31.8-35.4); Mean Corpuscular Hemoglobin 29.5 pg (27.0-31.2); Mean Corpuscular Volume 88.2 fl (81-99); Mean Platelet Volume 7.9 fl (7.4-10.4); Monocytes # 0.3 K/mm3 (0.1-1.0); Monocytes % 9.1 % (1.7-9.3); Neutrophils # 1.5 K/mm3 (1.8-7.8); Platelet Count 210 K/mm3 (142-424); Red Blood Count 4.71 M/mm3 (4.20-5.40); Red Cell Distribution Width 14.8 % (11.5-17.5); White Blood Count 3.5 K/mm3 (4.8-10.8)
[2020-03-30 08:12] LABS: C-Reactive Protein 1.7 mg/L (0-4)
--- NOTE | 2020-03-30 08:14 | HMH.ANESCL ---
[facility] Anesthesia Checklist - Patient Identification Patient Identification: Arm Band, Verbal (Name & ) - Structural Data Admitted From: Home Planned Operative Procedure/s: Right foot bunion S/P bunionectomy hardward removal Consent for Planned Operative Procedure(s) Verified: Yes Verified Documents: Surgical Consent, History and Physical - NPO Status Verified Time NPO: 20:00 - Chart Verification Results Verified: CBC, HCG - Additional verifications Patient : No Anesthesia Reactions: No Hx Blood Transfusions: No Blood Transfusion Reaction: No - Airway Assessment C-Spine Mobility Assessed: Yes (MP 3, TMD 3, thick neck) TMJ Mobility Assessed: Yes Dentition: Good Dentition - Neurological Assessment Level of Consciousness: Awake, Alert, Appropriate, Follows Commands Hx Seizures: No Numbness or tingling in extremities: No - Anesthesia Plan Anesthesia Risk discussed: Yes Anesthesia Plan: Verified ASA Class: III Anesthesia Type: General [facility] History I have reviewed the patient's past medical history: Yes Medical History: Reports:: Anxiety, Depression, Gastroesophageal Reflux Disease(GERD), Migraine Denies:: Atherosclerotic Heart Disease, Cancer, Congestive Heart Failure, Chronic Obstructive Pulmonary Disease (COPD), Diabetes Mellitus Type 1, Diabetes Mellitus Type 2, Hypertension, Internal Pacemaker, MRSA, Seizures *Have you ever received a pneumonia vaccine?: No *Have you received a flu vaccine this season?: Yes Other Medical History: Denies: Blood Transfusion Reaction Comment:: obesity, IBS Anesthesia experience/problems:: No prior complications Laterality Cases: Right: Other, Bilateral: Myringotomy (Ear Tubes) Other Surgeries: Yes: Cholecystectomy, Tubal Ligation, Other. No: Pacemaker Amputation: No Fractures: Yes (rt leg) - *Social History Last grade of school completed: High school graduate Smoking Status: Former smoker Tobacco Type: cigarettes # Packs/Day (cigarettes): 1 #Yrs smoked (if former smoker): 17 Alcohol Intake: current Alcohol Intake Frequency:: holidays/special occasions only Substance Use Type: denies use *Occupational Status:: employed Housing: house Household Members: spouse, children *Travel in the last 8 weeks: None - Psychiatric History Pschychiatric History:: Reports:: Anxiety, Depression Family Hx:: Diabetes, Heart Attack, Hypertension, Thyroid Disorder
[2020-03-30 08:25] LABS: Erythrocyte Sedimentation Rate 9 mm/hr (0-20)
--- NOTE | 2020-03-30 10:06 | SUR.PREOP ---
sitting on stretcher watching TV. family at bedside.
--- NOTE | 2020-03-30 11:00 | XR_ITS ---
PROCEDURE: XR FOOT RT MIN 3V CLINICAL INDICATION: Post op HWR Follow-up hardware removal COMPARISON: CT CT FOOT RT WO/W CON from 03/23/2020 FINDINGS: There is a posterior splint in place. There has been removal of the medial bone plate at the 1st metatarsal tarsal junction and also removal of multiple cortical screws. IMPRESSION: Status post hardware removal with good alignment. Dictated by: Daquan Grace MD 03/30/2020 16:31 Daquan Grace MD in [place] 03/30/2020 16:31
--- NOTE | 2020-03-30 12:34 | HMH.OPNOTE ---
Date of procedure: 03/30/20 Pre-op Diagnosis:: 1. Right foot retained orthopedic hardware 2. Right foot neuritis 3. Right foot synovitis 4. Right foot scar 5. Right foot s/p lapidus bunionectomy 01/27/20 with wound dehiscence Post-op Diagnosis:: Same Procedure performed:: 1. Right foot hardware removal 2. Right foot irrigation and excision of wound 3. Right foot excision of scar 4. Right foot delayed primary closure 5. Right foot bone biopsy 6. Right foot synovectomy 7. Right foot nerve decompression 8. Application of posterior splint Surgeon:: Elizabeth Bullock DPM CASTING ASSOCIATE:: Marlon Luna Anesthesia: GETA, local (30cc 0.5% marcaine plain) Estimated blood loss (mL): 10 Clinical Note:: 03/14/20, labs: wbc 5.3, esr 10, crp1.3, glucose 88. WCx: Staph epi, minocycline. CT RIGHT FOOT, 03/23/20. FINDINGS: Axial images are obtained without and with contrast enhancement. There has been prior arthrodesis with a dorsal medial bone plate at the 1st metatarsal tarsal junction with 4 cortical screws an additional oblique screw through the 1st metatarsal tarsal junction and a transverse screw through the base of the 1st and 2nd metatarsals. There was a question at this screw might have a fracture at its neck on a previous radiograph. The bone plate appears to be in place and the multiple screws appear to be intact. No evidence of screw fracture or bone plate fracture. Mild subcutaneous soft tissue swelling is present along the medial aspect of the ankle and the dorsal medial aspect of the foot. No abscess is evident. No abnormal areas of enhancement. No bony erosive change that would suggest osteomyelitis. Cortical regularity involves the distal aspect of the 1st metatarsal may be due to prior bunionectomy. IMPRESSION: 1. Prior arthrodesis of the 1st metatarsal tarsal junction and with a cortical screw at the base of the 1st and 2nd metatarsal. No evidence of screw or bone plate fracture. 2. No obvious abscess or evidence of osteomyelitis. 3. Mild soft tissue swelling along the dorsal medial aspect of the foot. 4. Cortical defect of the distal and medial aspect of the 1st metatarsal presumed from a prior bunionectomy. Patient reports she is having burning aching pain to the central incision site. She reports occasional drainage although there was none in the office today. Last visit we discussed the possibility of infection and ordered infection labs, which were all within normal limits. We also obtained a CT scan to check for fusion, broken hardware and osteomyelitis versus abscess. CT scan came back negative for infection. We discussed the possibilities of nerve entrapment, nerve hypersensitivity versus allergic reaction to the hardware. States she does have a severe metal allergy . My recommendation was try gabapentin for several days to see if the burning pain improves. If gabapentin offers no relief it is more likely a metal allergy from the implant. I had a long discussion with the patient about metal allergy. I explained that this condition is quite rare but if she has metal allergy from other substances such as cobalt, nickel, stainless steel, silver or even titanium it is possible that she is rejecting the hardware. Clinically her pain is localized directly over where the plate and screws are located at the tarsometatarsal joint. We discussed removing the hardware. We discussed complications could include recurrence of the bunion first delayed/nonunion secondary to instability. On the CT scan the fusion appears solid but explained sometimes after the hardware is removed in the fusion site is not fully healed. I recommend nonweightbearing after hardware removed. Patient may continue to work but needs to decrease her weightbearing activity. Resume NWB in boot. She may do ankle exercises, range of motion and ABCs . Recommend patient rest, ice and elevate and restrict work hours. Continue short fracture boot in office. Okay to remove boot when sitting and awake. Conserv
--- NOTE | 2020-03-30 12:35 | P.PN_ITS ---
[facility] Anesthesia Record Part I Intake, IV Amount: 1,100 Estimated blood loss (mL): 5 Urine output (mL): 0 Blood Pressure: 125/79 SaO2: 99 Pulse Rate: 92 Respiratory Rate: 16 Temperature: 98 F Patient is:: Drowsy, Stable Stable to PACU at:: 12:30
--- NOTE | 2020-03-30 13:09 | XR_ITS ---
PROCEDURE: XR FOOT RT 2V CLINICAL INDICATION: HARDWARE REMOVAL COMPARISON: CR XR FOOT RT MIN 3V from 01/27/2020 CR XR FOOT WT BEARING RT 3V from 02/25/2020 CR XR FOOT WT BEARING RT 3V from 03/14/2020 CR XR FOOT RT MIN 3V from 03/30/2020 FINDINGS: Fluoroscopy time: 0.4 minutes. Images submitted with the C-arm before and after hardware removal with good alignment. IMPRESSION: Good alignment status post hardware removal Dictated by: Daquan Grace MD 03/30/2020 16:32 Daquan Grace MD in [place] 03/30/2020 16:32
[2020-03-31 08:04] VITALS: BP 124/75; PULSE 66; TEMP 36.5
--- NOTE | 2020-03-31 08:04 | HMH.ANESII ---
[facility] Anesthesia Record Part II Discharge Time: 13:14 Destination: Surgical Day Care (OP Surgery) PACU nurse assessment reviewed?: Yes Patient Condition:: Good Anesthesia Complications:: None Swallowing reflex intact?: Yes Cyanosis?: No Blood Pressure: 124/75 Pulse Rate: 66 Temperature: 97.7 F Mental Status: Alert & Oriented Pain level:: 5 Nausea and/or vomitting:: None Intake, IV Amount: 0
== END 2020-03-30 13:59 | disposition home or self-care (01) ==
LOC: OR 06:34
PROVIDERS: PCP Family Medicine; Visit Provider Podiatrist
PROC: (CPT 20680; principal; 2020-03-30 08:30)
DX: Z47.2 Encounter for removal of internal fixation device (principal); G58.8 Other specified mononeuropathies; M65.871 Other synovitis and tenosynovitis, right ankle and foot; Z91.09 Other allergy status, other than to drugs and biological substances; Z91.048 Other nonmedicinal substance allergy status
CPT/HCPCS: 20680; 64704; 28070; 20225; 73620; 73630; 76000; 81025; 85025; 85651; 86140; 87070; 87205; 96374; C1713; J2405; J3370

== ENCOUNTER → 2020-04-14 13:13 | Outpatient (CLI) | payer OTHER, SELFPAY ==
--- NOTE | 2020-04-14 13:20 | XR_ITS ---
PROCEDURE: XR FOOT WT BEARING RT 3V CLINICAL INDICATION: post foot surgery COMPARISON: CR XR FOOT WT BEARING RT 3V from 02/25/2020 CR XR FOOT WT BEARING RT 3V from 03/14/2020 CR XR FOOT RT MIN 3V from 03/30/2020 CR XR FOOT RT 2V from 03/30/2020 FINDINGS: The cast has been removed. Hardware has been removed from the 1st metatarsal and medial cuneiform. There is some increasing lucency along the proximal aspect of the 1st metatarsal. While this could be postsurgical in nature, 1 cannot exclude the possibility of underlying infection/osteomyelitis. There is some cortical irregularity medially at this level. There is some minimal ill definition of the medial margin of the medial meniscus as well. There is overlying bandage artifact which could account the latter finding. IMPRESSION: Status post hardware removal with lucency at the base of the 1st metatarsal which could be postsurgical or secondary to developing osteomyelitis Dictated by: Daquan Grace MD 04/14/2020 15:20 Daquan Grace MD in [place] 04/14/2020 15:20
== END ==
PROVIDERS: PCP Family Medicine; Visit Provider Podiatrist
DX: Z98.890 Other specified postprocedural states (principal); M79.671 Pain in right foot
CPT/HCPCS: 73630

== ENCOUNTER → 2020-04-28 11:58 | Outpatient (CLI) | payer OTHER, SELFPAY ==
--- NOTE | 2020-04-28 12:02 | XR_ITS ---
PROCEDURE: XR FOOT WT BEARING RT 3V CLINICAL INDICATION: POSTOP VIEWS COMPARISON: CR XR FOOT WT BEARING RT 3V from 03/14/2020 CR XR FOOT RT MIN 3V from 03/30/2020 CR XR FOOT RT 2V from 03/30/2020 CR XR FOOT WT BEARING RT 3V from 04/14/2020 FINDINGS: Overall no significant change status post hardware removal with lucency along the proximal aspect of the 1st metatarsal as previously described. There is some increased soft tissue density along the hardware removal site which could be due to bandage artifact or some heterotopic ossification versus residual from antibiotic beads. Pes planus is noted. There is some osteosclerosis along the proximal aspect of the proximal phalanx of the great toe. Prior bunionectomy noted. IMPRESSION: Postsurgical changes as described above with continued lucency with cortical regularity at the base of the 1st metatarsal overall not significantly changed Dictated by: Daquan Grace MD 05/02/2020 06:40 Daquan Grace MD in [place] 05/02/2020 06:40
== END ==
PROVIDERS: PCP Family Medicine; Visit Provider Podiatrist
DX: Z98.890 Other specified postprocedural states (principal); M79.671 Pain in right foot; R20.2 Paresthesia of skin; R60.9 Edema, unspecified
CPT/HCPCS: 73630

== ENCOUNTER 2020-06-08 08:00 | Outpatient (RCR) | payer OTHER, SELFPAY ==
--- NOTE | 2020-05-04 17:40 | HMH.PTOPEV ---
PT Outpatient Evaluation Rehab PT Outpatient Evaluation Start: 05/04/20 17:25 Freq: Status: Active Protocol: Document 05/04/20 17:29 JESSICA (Rec: 05/04/20 17:40 JESSICA [id number]) Electronically Signed By Chirag Motley, PT 05/04/20 17:29 Outpatient Therapy Subjective History Subjective History Patient is a 30 year old female presenting to outpatiet PT with reports of L foot/ ankle pain S/P L bunionectomy and gastroc lengthening performed 01/27/20. Patient had some complications with wound healing/dehiscence secondary to allergic reaction to hardware. Patient underwent procedure for bunionectomy removal 03/30/20. She ambulates into clinic today in [employer] walker [facility]. No other reports of comorbidities. Chief Complaint Pain,Stiff Symptom Type Ache Symptoms Relieved By OTC Meds,Prescription Meds Symptoms Aggravated By Standing,Physical Activity, Walking Prior Functional Limitations None Current Functional Limitations Housework,Standing,Squatting, Recreation Activity,Walking, Stairs,Balance Symptom Description Intermittent Level of pain today (0-10) 0 Pain scale - at its best (0-10) 0 Pain scale - at its worst (0-10) 5 Ankle/Foot Eval Gait Observation General Gait Pattern Observation Antalgic Gait,Decrease Weight Bear (L) Palpation Tenderness left Ankle/Foot Palpation Findings Tenderness Ankle/Foot Palpation Overall Comment Surgical incision 2/4 ROM Ankle/Foot Dorsiflexion w/Knee Extended 1 Active Range Motion (degrees) Ankle/Foot Plantar Flexion Active Range 58 of Motion (degrees) Ankle/Foot Eversion Active Range of 17 Motion (degrees) Ankle/Foot Inversion Active Range of 16 Motion (degrees) Great Toe Metatarsophalangeal Extension 65 Active Range Motion (degrees) Great Toe Metatarsophalangeal Flexion 25 Active Range of Motion (degrees) MMT Ankle Dorsiflexion Strength Grade 5 Normal Ankle Plantarflexion Strength Grade 5 Normal Foot Eversion Strength Grade 4- Good- Foot Inversion Strength Grade 4- Good- Special Tests Ankle Anterior Drawer Test Negative Left Ankle Eversion Test Negative Left Talar Tilt Test Negative Left Foot Compression Test Negative Left Foot In
== END 2020-06-08 08:05 | disposition home or self-care (01) ==
LOC: PT 08:00
PROVIDERS: PCP Family Medicine; Visit Provider Podiatrist
DX: Z98.890 Other specified postprocedural states; M79.671 Pain in right foot; R60.9 Edema, unspecified
CPT/HCPCS: 97010; 97014; 97110; 97112; 97140; 97163; 97760; G0283

== ENCOUNTER 2020-06-20 13:15 | Emergency (ER) | payer OTHER, SELFPAY ==
[2020-06-20 13:25] VITALS: BP 113/71; PULSE 80; RESP 16; TEMP 36.6; O2SAT 97; BMI 29.2
--- NOTE | 2020-06-20 13:41 | HMH.EDUTC ---
[place] Disposition Clinical Impression: Encounter for laboratory testing for COVID-19 virus Sinusitis Qualifiers: Sinusitis location: unspecified location Chronicity: unspecified Qualified Code(s): J32.9 - Chronic sinusitis, unspecified Disposition: Home, Self-Care Condition on Discharge: Good Instructions: Sinusitis, DI for Sinusitis, Preventing the Spread of Coronavirus Discharge Instructions Additional Instructions: *Monitor Temp, Over the counter Motrin or Tylenol as directed/as needed Tylenol every 4 hours and Motrin every 6 hours (as long as your family doctor has told you that you can take it) for fever or pain. and straight to ER if unable to lower temp less than 101.0 after medication given *Warm salt water gargles may help to soothe the throat *Throat Lozenges *Warm fluids like tea with honey may help to soothe the throat *Sleep elevated *Humidifier/Vaporizer *Flonase 2 sprays in each nostril daily but be aware that it may take 2-3 days before you notice improvement *Take medication as prescribed Follow up IMMEDIATELY for new or worsening symptoms or no Noticeable improvement over the next 48-72 hours. 911 for difficulty breathing or swallowing You was tested for today for COVID19 your test result should be back in the next 24-48 hours, you may call to the [facility] later today or tomorrow to see if your test results are back and the result [phone] [facility] hours are 9am-9pm You was given a handout with instructions for Self Quarantine and Self isolation for while you wait on test results and what to do if they are positive If you are positive the Health Dept will be contacting you also Prescriptions: Fluticasone Propionate [Flonase 50mcg nasal spray 16gm] 1 spr NS DAILY #1 bottle Transmission Status: Received by [facility] Azithromycin [Z-Avery 250mg Tab] 250 mg PO DIRECTED #6 tab Transmission Status: Received by [facility] Referrals: Vidhi Delaney MD [Primary Care Provider] - As needed Forms: Work/School Release Time of Disposition: 14:02 Medical Decision Making - Danny Inquiry Pt receiving controlled substance: No Danny was queried for this patient: No Vital Signs: 06/20/20 13:25 06/20/20 14:01 Temperature 97.8 F 97.8 F Temperature Source Oral Pulse Rate 80 Pulse Rate [Right Brachial] 80 Respiratory Rate 16 16 Blood Pressure 113/71 Blood Pressure [Right Arm] 113/71 Blood Pressure Mean [Right Arm] 85 Blood Pressure Source [Right Arm] Automatic Cuff Blood Pressure Position [Right Arm] Sitting 02 Sat by Pulse Oximetry 97 Oxygen Delivery Method Room Air - Lab Data Lab results reviewed: Yes: I reviewed the patient's lab results. Orders (Tests/Meds): ORDERS Category Date Time Status Covid-19 Nasal PCR Sendout [facility] Routine Lab 06/20/20 13:37 Ordered [place] HPI - General Stated complaint: SOA Time Seen by Provider: 06/20/20 13:42 Mode of Arrival: Ambulatory Source of Information: Patient Limitations: No Limitations Description of Symptoms (Recalled from Triage Doc. by RN): PATIENT C/O HEADACHE, BACK PAIN, DRY MOUTH, AND SOA HEENT Symptoms (Recalled from RN notes): No Resp Symptoms (Recalled from RN notes): Yes Skin Symptoms (Recalled from RN notes): No MS Symptoms (Recalled from RN notes): Yes Functional Status (Recalled from RN notes): WNL - History of Present Illness Provider Complaint: Patient states that she hasnt felt well in a couple days States that she has been having body aches, sinus pain and pressure, drainage and feeling like she cannot get a deep breath States that she hasnt had a fever that she is aware of and feels like she is having pressure behind her eyes States that she wasnt able to go to work today so she come in to get checked - Related Data Previous Rx's Medication Instructions Recorded Azithromycin [Z-Avery 250mg Tab] 250 mg PO DIRECTED #6 tab 06/20/20 Fluticasone Propionate [Flonase 1 spr NS DAILY #1 bottle 06/20
[2020-06-20 14:01] VITALS: BP 113/71; PULSE 80; RESP 16; TEMP 36.6; O2SAT 97
[2020-06-20 19:11] LABS: UTC Influenza A Antigen Negative (Negative)
[2020-06-20 19:12] LABS: UTC Influenza B Antigen Negative (Negative)
[2020-06-22 15:54] LABS: Covid-19 Nasal PCR Sendout Lex Not Detected
== END 2020-06-20 14:04 | disposition home or self-care (01) ==
PROVIDERS: Emergency Provider Nurse Practitioner; PCP Family Medicine
DX: Z20.828 Contact with and (suspected) exposure to other viral communicable diseases (principal); J32.9 Chronic sinusitis, unspecified; F41.8 Other specified anxiety disorders; K21.9 Gastro-esophageal reflux disease without esophagitis; Z88.6 Allergy status to analgesic agent; Z87.891 Personal history of nicotine dependence
CPT/HCPCS: 87804; 99201; U0004

== ENCOUNTER → 2020-10-05 15:13 | Outpatient (CLI) | payer OTHER, SELFPAY ==
[2020-10-05 15:19] LABS: Microscopic, Urine URINE MICROSCOPIC (MICROSCOPIC)
[2020-10-05 16:47] LABS: Appearance,Urine CLEAR (Clear); Bilirubin,Urine Negative (Negative); Blood, Urine Negative (Negative); Color,Urine YELLOW (Yellow); Glucose,Urine (UA) Negative (Negative); Ketones,Urine Negative (Negative); Leukocyte Esterase,Urine Negative (Negative); Nitrate,Urine Negative (Negative); PH,Urine 7.5 (5.0-8.5); Protein,Urine Negative (Negative); Specific Gravity, Urine 1.015 (1.005-1.030); Urobilinogen,Urine 0.2 EU/dl (0.2)
[2020-10-05 17:33] LABS: Bacteria,Urine 1+ /lpf
== END ==
PROVIDERS: Visit Provider Family Medicine
DX: R35.0 Frequency of micturition (principal)
CPT/HCPCS: 81001; 87086

== ENCOUNTER 2020-10-31 17:01 | Emergency (ER) | payer OTHER, SELFPAY ==
[2020-10-31 17:32] VITALS: BP 123/74; PULSE 80; RESP 14; TEMP 36.8; O2SAT 99; BMI 40.2
[2020-10-31 17:38] LABS: Apearance,Urine Clear (Clear); Color,Urine Yellow (Yellow); Protein,Urine Negative (Negative)
[2020-10-31 17:39] LABS: Bilirubin,Urine Negative (Negative); Blood, Urine Negative (Negative); Glucose,Urine (UA) 1+ (Negative); Ketones,Urine Negative (Negative); UTC Leukocyte Esterase,Urine Negative (Negative); UTC Nitrate,Urine Positive (Negative); Urobilinogen,Urine 2 EU/dl (0.2)
--- NOTE | 2020-10-31 17:51 | HMH.EDUTC ---
[facility] Disposition Clinical Impression: UTI (urinary tract infection) Qualifiers: Urinary tract infection type: site unspecified Hematuria presence: with hematuria Qualified Code(s): N39.0 - Urinary tract infection, site not specified Disposition: Home, Self-Care Condition on Discharge: Good Instructions: Urinary Tract Infection, DI for Urinary Tract Infection (UTI) Additional Instructions: Drink plenty of fluids. Take tylenol or ibuprofen for pain or fever. Take the medications as directed. Follow up with your regular doctor. GO TO THE ER FOR ANY WORSENING SYMPTOMS The pyridium will make your urine turn orange, this is an expected side effect. It will stain your clothes if it comes into contact with them. Prescriptions: Sulfamethoxazole/Trimethoprim [Bactrim DS tablet] 1 each PO BID 7 Days #14 tab Transmission Status: Received by [facility] Phenazopyridine HCl [Pyridium 200mg Tablet] 200 pow PO TID #6 tab Transmission Status: Received by [facility] Referrals: Vidhi Delaney MD [Primary Care Provider] - Forms: Work/School Release Time of Disposition: 17:57 Medical Decision Making - Medical Records Medical records reviewed: No: I reviewed the patient's medical records. - Danny Inquiry Pt receiving controlled substance: No Vital Signs: 10/31/20 17:32 10/31/20 18:10 Temperature 98.2 F 98 F Temperature Source Oral Pulse Rate 84 Pulse Rate [Right] 80 Respiratory Rate 14 16 Blood Pressure 119/70 Blood Pressure [Right Arm] 123/74 Blood Pressure Mean [Right Arm] 90 02 Sat by Pulse Oximetry 99 - Lab Data Lab results reviewed: Yes: I reviewed the patient's lab results. Lab Results 10/31/20 17:37: Urine Color Yellow, Urine Appearance Clear, Urine pH 6.0, Ur Specific Shafer 1.010, Urine Protein Negative, Urine Glucose (UA) 1+, Urine Ketones Negative, Urine Blood Negative, Urine Nitrate Positive A, Urine Bilirubin Negative, Urine Urobilinogen 2, Ur Leukocyte Esterase Negative Orders (Tests/Meds): ORDERS Category Date Time Status Urine Culture Routine Micro 10/31/20 17:25 Received [facility] HPI - General Stated complaint: possible UTI Time Seen by Provider: 10/31/20 17:51 Mode of Arrival: Ambulatory Source of Information: Patient Limitations: No Limitations Description of Symptoms (Recalled from Triage Doc. by RN): pt thinks she has a UTI or kidney infection. she is having burning with urination. HEENT Symptoms (Recalled from RN notes): No Resp Symptoms (Recalled from RN notes): No Skin Symptoms (Recalled from RN notes): No MS Symptoms (Recalled from RN notes): No Functional Status (Recalled from RN notes): na - History of Present Illness Provider Complaint: she states that she has been having low back pain, dysuria and urinary frequency for the past 3 days. - Related Data Home Medications Medication Instructions Recorded Confirmed duloxetine 60 mg capsule,delayed 60 mg PO BID 08/18/20 08/18/20 release galcanezumab-gnlm 120 mg/mL 120 mg SQ QMONTH 08/18/20 08/18/20 subcutaneous syringe hydroxyzine pamoate 50 mg capsule 50 mg PO HS 08/18/20 08/18/20 Previous Rx's Medication Instructions Recorded Fluticasone Propionate [Flonase 1 spr NS DAILY #1 bottle 06/20/20 50mcg nasal spray 16gm] sumatriptan succinate 100 mg tablet 100 mg PO DAILY PRN 30 Days #9 tab 10/03/20 Phenazopyridine HCl [Pyridium 200 pow PO TID #6 tab 10/31/20 200mg Tablet] Sulfamethoxazole/Trimethoprim 1 each PO BID 7 Days #14 tab 10/31/20 [Bactrim DS tablet] Allergies Allergy/AdvReac Type Severity Reaction Status Date / Time ciprofloxacin Allergy Hives Verified 10/31/20 17:37 ketorolac [From Toradol] Allergy Anxiety Verified 10/31/20 17:37 - Worker's Comp Is this a Worker's Comp case?: No [facility] History - Hepatitis A Screen Drug use history?: No High risk sexual behaviors?: No History of sexually transmitted infection?: No
[2020-10-31 18:10] VITALS: BP 119/70; PULSE 84; RESP 16; TEMP 36.6
== END 2020-10-31 18:10 | disposition home or self-care (01) ==
PROVIDERS: Emergency Provider Nurse Practitioner Family; PCP Family Medicine
DX: N30.00 Acute cystitis without hematuria (principal); F41.8 Other specified anxiety disorders; K21.9 Gastro-esophageal reflux disease without esophagitis; G43.709 Chronic migraine without aura, not intractable, without status migrainosus; Z87.891 Personal history of nicotine dependence
CPT/HCPCS: 81003; 87086; 99202; G0463

== ENCOUNTER → 2020-11-02 10:24 | Outpatient (CLI) | payer OTHER, SELFPAY ==
--- NOTE | 2020-11-02 10:31 | CT_ITS ---
PROCEDURE: CT ABDOMEN PELVIS WO CON CLINICAL INDICATION: LT FLANK PAIN Left flank pain COMPARISON: CT ABDPELW CT abdomen pelvis w con from 10/13/2017 TECHNIQUE: Axial images obtained with sagittal and coronal reformats. All CT scans at the facility use one or more dose reduction, viz: automated exposure control, ma/kV adjustment per patient size (including targeted exams where dose is matched to indication, i.e. head), or iterative reconstruction technique. FINDINGS: LOWER THORAX: No acute finding ABDOMEN & PELVIS: Status post cholecystectomy. No focal liver lesion. The spleen, adrenal glands, and pancreas have an unremarkable unenhanced appearance. No renal or ureteral calculi. No hydronephrosis. No evidence of appendicitis or diverticulitis. No intestinal obstruction or free air. There is a mild amount of retained colonic feces. There is right-sided tubal ligation clip in the adnexal region. Previously there was a left-sided adnexal ligation clip. A clip is present anterior to the psoas muscle in the upper pelvic region and may be related to a migrated clip. There is a small umbilical hernia present. There are 2 clips within the fat within the umbilical hernia. Previously there were 2 clips within each adnexal region. Now there is only 1 clip within the right adnexal region, 2 clips in the small umbilical hernia, and 1 clip in the left mid abdominal region posteriorly. There are mild degenerative changes in the lower thoracic spine IMPRESSION: 1. No acute abdominal or pelvic findings. 2. There are 2 displaced left-sided fallopian tube clips and at least 1 displaced right-sided fallopian tube clip. Cannot assure sterilization due to the displaced clips. 3. Mild amount of retained colonic feces. Dictated by: Daquan Grace MD 11/02/2020 13:21 Daquan Grace MD in [facility] 11/02/2020 13:21
== END ==
PROVIDERS: PCP Nurse Practitioner Family; Visit Provider Nurse Practitioner Family
DX: R10.9 Unspecified abdominal pain (principal)
CPT/HCPCS: 74176

== ENCOUNTER → 2020-11-04 09:38 | Outpatient (CLI) | payer OTHER, SELFPAY ==
--- NOTE | 2020-11-04 10:07 | US_ITS ---
PROCEDURE: US TRANSVAGINAL CLINICAL INDICATION: LLQP Left lower quadrant pain COMPARISON: US TRANVAG US transvaginal from 04/24/[address] ABDOMEN PELVIS WO CON from 11/02/2020 FINDINGS: UTERUS: 8cm x 5cmx 4cm with a combined endometrial thickness of 4.4mm LEFT OVARY: [id number] RIGHT OVARY: [id number] No cul-de-sac fluid is evident. There is some heterogeneous echogenicity within the fundus of the uterus. This may be due to artifact from overlying bowel gas and shadowing. No cul-de-sac fluid is evident. There are small bilateral ovarian follicles with no dominant cyst evident. Bilateral ovarian blood flow is apparent. IMPRESSION: 1. No acute finding. 2. Mild heterogeneous echogenicity of the fundus of the uterus which may be artifactual. Cannot exclude fibroid involvement. Dictated by: Daquan Grace MD 11/04/2020 14:07 Daquan Grace MD in [facility] 11/04/2020 14:07
== END ==
PROVIDERS: PCP Nurse Practitioner Family; Visit Provider Nurse Practitioner Obstetrics & Gynecology
DX: R10.32 Left lower quadrant pain (principal)
CPT/HCPCS: 76830

== ENCOUNTER → 2021-01-26 11:45 | Outpatient (POV) | payer OTHER, SELFPAY ==
[2021-01-26 12:02] VITALS: BP 133/89; PULSE 115; RESP 18; O2SAT 97; BMI 40.6
--- NOTE | 2021-01-26 13:41 | HMH.PMCON ---
Assessment and Plan (1) Chronic migraine with aura Status: Chronic Category: Medical Code(s): G43.109 - Migraine with aura, not intractable, without status migrainosus (2) Chronic headache Status: Chronic Category: Medical Code(s): R51.9 - Headache, unspecified; G89.29 - Other chronic pain (3) Chronic daily headache Status: Chronic Category: Medical Code(s): R51.9 - Headache, unspecified - Assessment and plan all Dx Assessment and Plan for all problems:: Patient has tried and failed Imitrex, propranolol, amitriptyline, Emgality. She has not gotten any relief. She continues to have headaches most days of the month. Her headaches last between 8 to 12 hours/day. It is affecting her quality of life. She has not gotten any significant relief with previous therapies. She is having light sensitivity along with nausea vomiting and dizziness with her headaches. She is also having head fogginess following her headaches. She has been to neurology has had imaging of her brain which was unremarkable. She has been to the emergency room with lumbar punctures to rule out meningitis. She was diagnosed with chronic headaches and chronic migraines with aura. Patient says that she gets approximately 4 days of headache free days throughout the month. She reports the rest of the month to be very difficult with almost paralyzing inability to get out of bed. We will seek approval for the patient to undergo Botox therapy for her chronic migraines. We had a long discussion that she will need to undergo at least 2 cycles of 12 weeks in between before expectations of relief. She will continue with Emgality for now. Risks and benefits of the procedure have been explained to the patient. Patient would like to proceed with the procedure. Patient has been instructed to contact the clinic with any concerns before the next appointment. Dr. Finley has reviewed this note and agrees with this plan of care. This note was dictated using voice recognition software and make contain errors or omissions. HPI - Data of Consult Patient: new to practice Consult date: 01/26/21 Requesting Physician: Lucretia Delacruz APRN Primary Care Provider: Vidhi Delaney MD - Consult Narrative Reason for consult: Migraines History of present illness: Ms. Brandt is a 30 year old female who presents today for consultation for chronic migraines. 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 She is an employee of [employer]. Patient reports that she has had ongoing headaches and migraines for greater than 2 to 3 years. She has tried multiple modalities of therapy with no relief. She has tried propanolol, amitriptyline, Imitrex, as well as Emgality. She is currently taking Emgality injections. She says that she has headaches daily with less than 4 headache free days per month. She reports to be having light sensitivity along with nausea and vomiting with her headaches. Patient says that sunlight causes her to have severe headaches. She did see ophthalmology for concerns that her headaches are related to her eyesight. She says that she did not have any concerning pathology. She has also seen neurology who has continued patient on oral medications and injective therapy. Patient says she also has occasional dizziness with her headaches. Her headaches are generally unilateral but vary from side to side. She says that during the day her head aches will last between 8 to 12 hours. She is having blurred vision along with her headaches. She says that she has also tried propanolol in the past with no significant relief. Her pain is a 5-7 out of 10 on most days. Patient says she has difficulty performing her job due to worsening headaches. It is affecting her quality of life. CC: Lucretia Delacruz APRN [facility] History I have reviewed the patient's past medical history: Yes Medical History: Reports:: Anxiety, Depression, Gastroesophageal Reflux Disease(GERD), John
== END ==
PROVIDERS: PCP Family Medicine; Visit Provider Clinical Nurse Specialist Family Health
DX: G43.109 Migraine with aura, not intractable, without status migrainosus (principal)
CPT/HCPCS: 99202; G0463

== ENCOUNTER 2021-02-21 18:41 | Emergency (ER) | payer OTHER, SELFPAY ==
[2021-02-21 18:41] VITALS: BP 134/86; PULSE 95; RESP 16; TEMP 36.8; O2SAT 99; BMI 40.9
--- NOTE | 2021-02-21 20:09 | XR_ITS ---
PROCEDURE INFORMATION: Exam: XR Left Ankle Exam date and time: 02/21/2021 8:09 PM Age: 30 years old Clinical indication: Injury or trauma; Other: [place]/heard left ankle pop while walking down stairs. ; Blunt trauma; Patient HX: Left ankle pain, injury. TECHNIQUE: Imaging protocol: XR Left ankle. Views: 3 or more views. Total images: 3 COMPARISON: CR XR FOOT WT BEARING LT 3V 09/29/2019 4:36 PM FINDINGS: Bones/joints: No fractures. No blastic or lytic lesions. The ankle mortise joint is well maintained. No joint effusion. The visualized hindfoot and midfoot are grossly well aligned. No hindfoot coalition. Soft tissues: No periostitis or osteolysis. Lateral soft tissue swelling. No radiopaque foreign bodies. IMPRESSION: 1. No acute osseous abnormalities. 2. Lateral soft tissue swelling.
--- NOTE | 2021-02-21 21:03 | HMH.EDUTC ---
[facility] Disposition Clinical Impression: Left ankle sprain Qualifiers: Encounter type: initial encounter Involved ligament of ankle: unspecified ligament Qualified Code(s): S93.402A - Sprain of unspecified ligament of left ankle, initial encounter Disposition: Home, Self-Care Condition on Discharge: Good Instructions: How to Use Crutches, DI for Ankle Sprain, DI for Foot Sprain Additional Instructions: Rest the extremity, apply ice for 15 minutes as tolerated three or four times per day, Elevate the extremity as tolerated while you are resting. Take ibuprofen for pain if you can take it. Follow up with Dr. Bullock (podiatry). Sometimes there can be fractures that don't show up well on the first set of x-rays. So, you should follow up if you continue to have symptoms. I put in a referral but you need to call her office and schedule an appointment. Follow up with your regular doctor. GO TO THE ER FOR ANY WORSENING SYMPTOMS Referrals: Vidhi Delaney MD [Primary Care Provider] - Elizabeth Bullock DPM [Staff Physician] - Forms: Work/School Release Time of Disposition: 21:09 Medical Decision Making - Medical Records Medical records reviewed: No: I reviewed the patient's medical records. - Danny Inquiry Pt receiving controlled substance: No Vital Signs: 02/21/21 18:41 02/21/21 21:24 Temperature 98.3 F 98.3 F Temperature Source Oral Pulse Rate 95 H Pulse Rate [Left Radial] 95 H Respiratory Rate 16 16 Blood Pressure 134/86 Blood Pressure [Right Arm] 134/86 Blood Pressure Mean [Right Arm] 102 Blood Pressure Source [Right Arm] Automatic Cuff Blood Pressure Position [Right Arm] Sitting 02 Sat by Pulse Oximetry 99 Oxygen Delivery Method Room Air - Radiology Data #1 Image(s): Ankle Image Reviewed: Yes I reviewed the patient's radiology image, Yes I have reviewed radiologist's interpretation Preliminary Findings: No Fracture Seen PROCEDURE INFORMATION: Exam: XR Left Ankle Exam date and time: 02/21/2021 8:09 PM Age: 30 years old Clinical indication: Injury or trauma; Other: [place]/heard left ankle pop while walking down stairs. ; Blunt trauma; Patient HX: Left ankle pain, injury. TECHNIQUE: Imaging protocol: XR Left ankle. Views: 3 or more views. Total images: 3 COMPARISON: CR XR FOOT WT BEARING LT 3V 09/29/2019 4:36 PM FINDINGS: Bones/joints: No fractures. No blastic or lytic lesions. The ankle mortise joint is well maintained. No joint effusion. The visualized hindfoot and midfoot are grossly well aligned. No hindfoot coalition. Soft tissues: No periostitis or osteolysis. Lateral soft tissue swelling. No radiopaque foreign bodies. IMPRESSION: 1. No acute osseous abnormalities. 2. Lateral soft tissue swelling. [facility] HPI - General Stated complaint: AO 02/21@1800 Injured L Ankle Time Seen by Provider: 02/21/21 19:00 Mode of Arrival: Ambulatory Source of Information: Patient Limitations: No Limitations Description of Symptoms (Recalled from Triage Doc. by RN): c/o left ankle pain, states she was leaving the doctors and she tripped down the steps and heard her ankle pop HEENT Symptoms (Recalled from RN notes): No Resp Symptoms (Recalled from RN notes): No Skin Symptoms (Recalled from RN notes): No MS Symptoms (Recalled from RN notes): Yes Functional Status (Recalled from RN notes): wnl - History of Present Illness Provider Complaint: She stepped down a step and came down on her left foot wrong. This caused her to twist her left foot and ankle. This happened about 30 minutes before her arrival here. - Related Data Home Medications Medication Instructions Recorded Confirmed duloxetine 60 mg capsule,delayed 60 mg PO BID 08/18/20 11/08/20 release galcanezumab-gnlm 120 mg/mL 120 mg SQ QMONTH 08/18/20 11/08/20 subcutaneous syringe hydroxyzine pamoate 50 mg capsule 50 mg PO HS 08/18/20 04
[2021-02-21 21:24] VITALS: BP 134/86; PULSE 95; RESP 16; TEMP 36.8; O2SAT 99
== END 2021-02-21 21:28 | disposition home or self-care (01) ==
PROVIDERS: Emergency Provider Nurse Practitioner Family; PCP Family Medicine
DX: S93.402A Sprain of unspecified ligament of left ankle, initial encounter (principal); W10.9XXA Fall (on) (from) unspecified stairs and steps, initial encounter; Y92.89 Other specified places as the place of occurrence of the external cause; K21.9 Gastro-esophageal reflux disease without esophagitis; F41.8 Other specified anxiety disorders; F17.210 Nicotine dependence, cigarettes, uncomplicated
CPT/HCPCS: 73610; 99202; G0463

== ENCOUNTER → 2021-02-28 11:06 | Outpatient (CLI) | payer OTHER, SELFPAY ==
--- NOTE | 2021-02-28 11:10 | XR_ITS ---
PROCEDURE: XR ANKLE WT BEARING LT MIN 3V CLINICAL INDICATION: ankle pain COMPARISON: CR XR ANKLE LT MIN 3V from 02/21/2021 FINDINGS: Bones: No fracture or dislocation. No lytic or blastic change. There is normal mineralization. Joints: The joint spaces are well-preserved. No significant degenerative/arthritic changes. No erosive changes evident. Other findings:Mild lateral soft tissue swelling once again noted slightly improved IMPRESSION: Soft tissue swelling otherwise negative Dictated by: Daquan Grace MD 02/28/2021 13:11 Daquan Grace MD in [facility] 02/28/2021 13:11
== END ==
PROVIDERS: PCP Family Medicine; Visit Provider Podiatrist
DX: S93.402A Sprain of unspecified ligament of left ankle, initial encounter (principal)
CPT/HCPCS: 73610

== ENCOUNTER → 2021-03-08 16:10 | Outpatient (CLI) | payer OTHER, SELFPAY ==
--- NOTE | 2021-03-08 16:10 | MR_ITS ---
PROCEDURE INFORMATION: Exam: MR Left Lower Extremity Joint Without and With Contrast; Ankle Exam date and time: 03/08/2021 4:10 PM Age: 30 years old Clinical indication: Pain; Ankle; Left; Additional info: Ankle pain, injury. PT states she rolled her left ankle 2 weeks ago and continues to have lateral pain. Prior xrays done 02/28/2021, 20 ml prohance used for contrast lot # [id number] exp 07/2023 TECHNIQUE: Imaging protocol: MR of the Left lower extremity without and with contrast. Exam focused on the ankle. Contrast material: PROHANCE; Contrast volume: 20 ml; Contrast route: IV; COMPARISON: 1. CR XR ANKLE WT BEARING LT MIN 3V 02/28/2021 11:42 AM 2. CR XR ANKLE LT MIN 3V 02/21/2021 8:13 PM 3. CR XR FOOT WT BEARING LT 3V 09/29/2019 4:36 PM FINDINGS: Bones and cartilage: Osseous contusions (post-traumatic bone marrow lesions) involve the talus and cuboid. There is no acute fracture or dislocation. No aggressive bone lesions are present. Joint spaces: A mild effusion involves the ankle joint. LIGAMENTS: Distal tibiofibular syndesmosis: Unremarkable. No tear. Anterior talofibular ligament: The anterior talofibular ligament is not visible, consistent with a full thickness tear. Posterior talofibular ligament: The posterior talofibular ligament is thickened and has intermediate signal intensity, consistent with prior low grade injury. Calcaneofibular ligament: The calcaneofibular ligament is incompletely visualized, suggesting a full thickness tear. Deltoid ligament complex: Unremarkable. No tear. TENDONS: Flexor tendons of foot: Trace tenosynovitis involves the flexor digitorum longus tendon. Tibialis posterior tendon: Moderate tenosynovitis involves the tibialis posterior tendon. Peroneal tendons: Moderate tenosynovitis involves the peroneal tendon sheath. Extensor tendons of foot: Unremarkable as visualized. Tibialis anterior tendon: Unremarkable. Achilles tendon: There is no tear or significant tendinosis involving the Achilles tendon. Tarsal canal (Sinus tarsi): Unremarkable. Normal signal of the fat. Tarsal tunnel: Unremarkable. Muscles: Unremarkable. Soft tissues: Soft tissue edema is severe involving the lateral ankle and moderate involving the medial ankle. A focus of artifact in the skin along the plantar medial forefoot at the level of the first metatarsal base likely represents a small imbedded foreign body that is unlikely to be of clinical significance. Plantar fascia: Mild edema superficial to the proximal plantar fascia at the calcaneal attachment is indeterminant for mild plantar fasciitis (fasciopathy). IMPRESSION: 1. Full-thickness tear of the anterior talofibular ligament. 2. Probable full-thickness tear of the calcaneofibular ligament. 3. Low-grade injury of the posterior talofibular ligament. 4. Osseous contusions of the talus and cuboid. 5. Moderate tenosynovitis of the tibialis posterior and peroneal tendons. 6. No fracture.
== END ==
PROVIDERS: PCP Family Medicine; Visit Provider Podiatrist
DX: S93.422A Sprain of deltoid ligament of left ankle, initial encounter (principal); M25.472 Effusion, left ankle; S93.402A Sprain of unspecified ligament of left ankle, initial encounter
CPT/HCPCS: 73723; A9576

== ENCOUNTER → 2021-06-29 10:54 | Outpatient (CLI) | payer OTHER, SELFPAY ==
--- NOTE | 2021-06-29 11:01 | XR_ITS ---
PROCEDURE: XR CHEST 2V CLINICAL HISTORY: sob COMPARISON: CR XR CHEST 2V from 01/07/2020 FINDINGS: Borderline cardiomegaly without failure. The lungs are clear without infiltrates, suspicious nodules, or pleural effusions. Mild degenerative changes thoracic spine. IMPRESSION: No change with no acute finding Dictated by: Daquan Grace MD 06/29/2021 12:55 Daquan Grace MD in [facility] 06/29/2021 12:55
== END ==
PROVIDERS: PCP Family Medicine; Visit Provider Internal Medicine Pulmonary Disease
DX: R06.00 Dyspnea, unspecified (principal); Z86.16 Personal history of COVID-19
CPT/HCPCS: 71046

== ENCOUNTER → 2021-07-05 08:04 | Outpatient (CLI) | payer OTHER, SELFPAY ==
[2021-07-05 08:35] VITALS: PULSE 81; PULSE 84
== END ==
PROVIDERS: PCP Family Medicine; Visit Provider Internal Medicine Pulmonary Disease
DX: R06.00 Dyspnea, unspecified (principal)
CPT/HCPCS: 94060; 94618; 94640; 94726; 94729

== ENCOUNTER 2021-07-14 09:28 | Day surgery (SDC) | payer OTHER, SELFPAY ==
[2021-07-14 11:43] VITALS: BP 113/92; PULSE 96; RESP 18; TEMP 36.3; O2SAT 97; BMI 41.5
[2021-07-14 13:07] VITALS: BP 113/92; PULSE 96; RESP 20; O2SAT 97
--- NOTE | 2021-07-14 13:13 | HMH.PMPROC ---
- Procedure Date: 07/14/21 Time: 13:14 Anesthesiologist:: Kim Aggarwal MD Complications:: None Pre-procedure Diagnosis:: Chronic migraines Post-procedure Diagnosis:: Same Indications for Procedure:: This patient is a very pleasant 31-year-old white female who presents today with chronic migraines. She has tried and failed conservative treatment getting oral pain medications but she unfortunately continues to have frequent migraines. The plan for today is for the patient to undergo Botox injections at 31 sites for a total of 155 units. Procedure Details:: After informed consent was obtained, the patient was taken to the procedure suite and placed in seated upright position. The skin overlying the region was prepped with ChloraPrep and sterile fashion. A 30-gauge half inch needle was inserted and advanced to the following muscles: Bilateral medical assistant instructor 10 units divided into 2 sites, procerus 5 units divided into 1 site, bilateral frontalis 20 units divided into 4 sites, bilateral temporalis 40 units divided into 5 sites, bilateral occipitalis 30 units divided into 6 sites, bilateral cervical paraspinal muscles 20 units divided into 4 sites, trapezius 30 units divided into 6 sites. 4 mL of solution containing 0.1 mL / 5 units of Botox was injected into each of the above muscle sites. A total of 31 sites were injected with a total of 155 units of Botox. The patient tolerated the procedure well without any complications. Plan and Disposition:: We will follow up with the patient in 2 weeks. Will reevaluate the patient in 2 weeks.
== END 2021-07-14 13:00 | disposition home or self-care (01) ==
LOC: SC.PAINP 09:29
PROVIDERS: PCP Family Medicine; Visit Provider Anesthesiology Pain Medicine
DX: G43.909 Migraine, unspecified, not intractable, without status migrainosus (principal); K21.9 Gastro-esophageal reflux disease without esophagitis; F41.9 Anxiety disorder, unspecified; F32.A Depression, unspecified; U09.9 Post COVID-19 condition, unspecified
CPT/HCPCS: 64615; J0585

== ENCOUNTER → 2021-08-03 11:50 | Outpatient (POV) | payer OTHER, SELFPAY ==
[2021-08-03 12:05] VITALS: BP 152/90; PULSE 71; RESP 18; O2SAT 96; BMI 40.8
--- NOTE | 2021-08-06 19:50 | HMH.PAINSOAP ---
[facility] Pain Management SOAP Note Subjective:: Patient is following up after Botox injections for chronic migraines. She has tried oral pain medications for relief as well as a strict regimen for migraines by previous providers with minimal relief. Patient says that she got significant relief following the injections. She says that she is already seeing improvement with the number of headaches per week. She says that she has daily headaches which are much less intense, but says that migraine headaches are present 1-2 times per week at this time. She was having more than 5/week prior to the injections. Overall she feels the severity of the headaches have improved. She rates her pain a 3 out of 10 today. Review of Systems General: No recent weight changes, no fever, no sleep disturbances Respiratory: No cough, no shortness of air, no recurring pulmonary infections Cardiovascular/peripheral vascular: No chest pain, no palpitations, no edema, no shortness of breath Gastrointestinal: No new onset incontinence, normal bowel movements reported Genitourinary: No new onset incontinence Musculoskeletal: Denies pain Psychiatric: [Normal mood/affect] Neurological: [Denies weakness in extremities], [denies balance issues], intermittent headaches?daily, migraine headaches 1-2 times per week Objective:: Physical exam General: Alert and oriented x3, no acute distress, pleasant and cooperative Lungs: Respirations even and unlabored, symmetrical chest expansion Eyes: PERRL Musculoskeletal: Flexion and extension of [] [spine] nonguarded Neurological PERRL Assessment:: Chronic migraines, chronic headaches Plan:: Patient is doing very well since her initial Botox injections. Severity of her headaches have decreased as well as number of headaches per week. We will schedule patient for 12-week follow-up to undergo injective therapy once again with Botox injections at that time. The patient has been instructed to contact clinic she has any concerns before the next morning. Risks and benefits of the procedure have been explained to the patient. Patient would like to proceed with the procedure. Patient has been instructed to contact the clinic with any concerns before the next appointment. Dr. Finley has reviewed this note and agrees with this plan of care. This note was dictated using voice recognition software and make contain errors or omissions. [facility] History I have reviewed the patient's past medical history: Yes Medical History: Reports:: Anxiety, Depression, Gastroesophageal Reflux Disease(GERD), Migraine Denies:: Atherosclerotic Heart Disease, Cancer, Congestive Heart Failure, Chronic Obstructive Pulmonary Disease (COPD), Diabetes Mellitus Type 1, Diabetes Mellitus Type 2, Hypertension, Internal Pacemaker, MRSA, Seizures *Have you ever received a pneumonia vaccine?: No *Have you received a flu vaccine this season?: Yes Other Medical History: Denies: Blood Transfusion Reaction Laterality Cases: Right: Other, Bilateral: Myringotomy (Ear Tubes) Other Surgeries: Yes: Cholecystectomy, Tubal Ligation, Other (rt foot). No: Pacemaker Amputation: No Fractures: Yes (rt leg) - *Social History Smoking Status: Former smoker Tobacco Type: cigarettes # Packs/Day (cigarettes): 1 #Yrs smoked (if former smoker): 17 Alcohol Intake: never Alcohol Intake Frequency:: holidays/special occasions only Substance Use Type: denies use *Occupational Status:: employed Housing: house Household Members: spouse, children *Travel in the last 8 weeks: None - Psychiatric History Pschychiatric History:: Reports:: Anxiety, Depression Family Hx:: Diabetes, Heart Attack, Hypertension, Thyroid Disorder
== END ==
PROVIDERS: Visit Provider Clinical Nurse Specialist Family Health
DX: G43.909 Migraine, unspecified, not intractable, without status migrainosus (principal)
CPT/HCPCS: 99212; G0463

== ENCOUNTER → 2021-12-18 12:38 | Outpatient (CLI) | payer OTHER, SELFPAY ==
[2021-12-18 13:40] LABS: HCG,Quantitative < 2 mIU/ml (0-5.42)
== END ==
PROVIDERS: PCP Family Medicine; Visit Provider Obstetrics & Gynecology
DX: Z32.01 Encounter for pregnancy test, result positive (principal)
CPT/HCPCS: 36415; 84702

== ENCOUNTER 2022-03-23 08:33 | Emergency (ER) | payer OTHER, SELFPAY ==
--- NOTE | 2022-03-23 09:28 | EXP.UTC ---
Discharge Plan Disposition Patient Disposition: Home, Self-Care Condition: Good Prescriptions Prescriptions: New amoxicillin [amoxicillin] 500 mg tablet 500 mg PO TID 10 Days Qty: 30 0RF benzonatate [benzonatate] 100 mg capsule 100 mg PO TIDP PRN (Reason: Cough) Qty: 30 0RF No Action duloxetine 60 mg capsule,delayed release(DR/EC) 60 mg PO DAILY albuterol sulfate 90 mcg/actuation aerosol powdr breath activated 1 inh INHALATION Q4-6H PRN (Reason: shortness of breath or wheezing) Qty: 1 2RF quetiapine 50 mg tablet 50 mg PO HS Label Comments: TAKE 1 TO 2 TABLET(S) BY MOUTH ONCE DAILY AT BEDTIME norgestimate-ethinyl estradiol 0.25-35 mg-mcg tablet 1 tab PO DAILY Qty: 84 3RF Flonase Sensimist 27.5 mcg/actuation spray,suspension 2 spray NS DAILY Rx Instructions: into each nostril Referrals Referrals: Vidhi Delaney MD [Primary Care Provider] - Enter time for follow up Clinical Impressions Clinical Impression: Pharyngitis, Acute viral syndrome Stand Alone Forms Stand Alone Forms: Work/School Release Instructions Patient Instructions: DI for Pharyngitis/Tonsillopharyngitis -- Adult, Coronavirus Disease 2019, Preventing the Spread of Coronavirus Discharge Instructions Discharge ED Provider: Raphael James [facility] General Stated complaint: Covid test Time Seen by Provider: 03/23/22 09:28 History of Present Illness Provider Complaint: He states that for the past 2 days he has had sinus congestion, sore throat and body aches. Related Data Home Medications Medication Instructions Recorded Confirmed duloxetine 60 mg capsule,delayed 60 mg PO DAILY Depression 08/18/20 03/23/22 release quetiapine 50 mg tablet 50 mg PO HS Anxiety 02/19/22 03/23/22 fluticasone furoate 27.5 2 spray intranasal DAILY Allergy 03/23/22 03/23/22 mcg/actuation nasal symptoms spray,suspension (Flonase Sensimist) Previous Rx's Medication Instructions Recorded albuterol sulfate 90 mcg/actuation 1 inh inhalation Q4-6H PRN 06/20/21 breath activated powder inhaler shortness of breath or wheezing #1 ea norgestimate 0.25 mg-ethinyl 1 tab PO DAILY control #84 09/29/21 estradiol 35 mcg tablet tabs amoxicillin 500 mg tablet 500 mg PO TID 10 days #30 tabs 03/23/22 benzonatate 100 mg capsule 100 mg PO TIDP PRN Cough #30 caps 03/23/22 Allergies Allergy/AdvReac Type Severity Reaction Status Date / Time gabapentin Allergy Intermediate Rash Verified 03/23/22 09:33 ketorolac [From Toradol] Allergy Anxiety Verified 03/23/22 09:33 PFSH PFSH Social History Smoking Status: Former smoker pack-years: 17 second hand exposure: No alcohol intake: never substance use type: denies use current occupational status: employed household members: spouse and children housing: house current occupation: clinic pharmacy current occupational exposures/hazards: No caffeine: Yes ROS Obtained: Yes All systems reviewed & no additional complaints except as documented Constitutional Constitutional: Reports chills and Reports fever(s) Eyes Eyes: Denies eye discharge ENT Ears, Nose, Mouth, and Throat: Reports as per HPI Cardiovascular Cardiovascular: Denies chest pain Respiratory Respiratory: Denies chest congestion and Reports cough Gastrointestinal Gastrointestingal: Reports nausea; Denies abdominal pain, constipation, cramping, diarrhea or vomiting Musculoskeletal Musculoskeletal: Denies arthralgias Integumentary/Breasts Skin/Breast: Denies rash Neurologic Neurologic: Denies paresthesias Physical Exam General General appearance: alert and in no apparent distress Head Head exam: atraumatic and normocephalic Eye Eye exam: Present normal appearance, PERRL and EOMI ENT ENT exam: Present normal exam, normal oropharynx, mucous membranes moist and TM's normal bilaterally Neck Neck exam: Present jacki
[2022-03-23 09:29] LABS: UTC Strep Screen (Rapid) Negative (Negative)
[2022-03-23 09:30] VITALS: BP 125/87; PULSE 62; RESP 18; TEMP 36.7; O2SAT 96; BMI 38.0
[2022-03-23 09:46] VITALS: BP 125/87; PULSE 62; RESP 18; TEMP 36.7
[2022-03-23 12:59] LABS: Influenza A, PCR Not Detected (NotDetected); Influenza B, PCR Not Detected (NotDetected)
[2022-03-23 13:26] LABS: Coronavirus 19, PCR Detected (NotDetected)
[2022-03-23 14:47] VITALS: BP 125/87; PULSE 62; RESP 18; TEMP 36.7
== END 2022-03-23 14:47 | disposition home or self-care (01) ==
PROVIDERS: Emergency Provider Nurse Practitioner Family; PCP Family Medicine
DX: U07.1 COVID-19 (principal); J02.9 Acute pharyngitis, unspecified; B34.9 Viral infection, unspecified; R06.02 Shortness of breath; M79.10 Myalgia, unspecified site; Z79.51 Long term (current) use of inhaled steroids; Z88.6 Allergy status to analgesic agent; Z87.891 Personal history of nicotine dependence
CPT/HCPCS: 87880; 99213; C9803; G0463; U0003; U0005

== ENCOUNTER 2022-05-21 07:18 | Day surgery (SDC) | payer OTHER, SELFPAY ==
[2022-05-17 15:00] VITALS: BMI 93.7
[2022-05-21] VITALS (10 sets, daily range): BP systolic 112–155; BP diastolic 68–75; PULSE 79–112; RESP 14–18; TEMP 35.9–36.8; O2SAT 97–100
[2022-05-21 08:06] LABS: Urine Pregnancy, HCG Qual. Negative (Negative)
--- NOTE | 2022-05-21 08:22 | EXP.ANES.CKL ---
[facility] Medical History Anxiety Bunion, right Depression GERD (gastroesophageal reflux disease) Hypertrophy of inferior nasal turbinate Irritable bowel syndrome (IBS) Nasal septal deviation Refractory obstruction of nasal airway Surgical History History of cholecystectomy History of tubal ligation Status post myringotomy with tube placement of both ears Family History Other Diabetes Heart attack Hypertension Thyroid disorder Social History Smoking Status: Former smoker pack-years: 17 second hand exposure: No alcohol intake: current substance use type: denies use current occupational status: employed Travel in the last 8 weeks: None household members: spouse and children housing: house current occupation: clinic pharmacy current occupational exposures/hazards: No caffeine: Yes [facility] Anesthesia Checklist Patient Identification Patient Identification: Arm Band and Verbal (Name & ) Structural Data Admitted From: Home Planned Operative Procedure/s: Nasal septoplasty Consent for Planned Operative Procedure(s) Verified: Yes NPO Status Verified Time NPO: 00:00 Chart Verification Results Verified: HCG Additional verifications Anesthesia Reactions: No Hx Blood Transfusions: No Blood Transfusion Reaction: No Airway Assessment C-Spine Mobility Assessed: Yes TMJ Mobility Assessed: Yes Dentition: Good Dentition Neurological Assessment Level of Consciousness: Awake Hx Seizures: No Numbness or tingling in extremities: No Anesthesia Plan Anesthesia Risk discussed: Yes Anesthesia Plan: Verified ASA Class: II Anesthesia Type: General
--- NOTE | 2022-05-21 10:30 | P.PNANES_ITS ---
[facility] Anesthesia Record Part I Anesthesia Record I Intake, IV Amount: 400 Estimated blood loss (mL): 20 Urine output (mL): 0 Blood Products used (#): none Blood Pressure: 155/75 SaO2: 97 Pulse Rate: 112 Respiratory Rate: 18 Temperature: 98.2 F Patient is:: Drowsy Stable to PACU at:: 10:28
--- NOTE | 2022-05-21 10:42 | EXP.OP.NOTE ---
Date of procedure: 05/21/22 Pre-op Diagnosis:: Nasal airway obstruction secondary to nasal septal deviation Bilateral inferior turbinate hypertrophy Post-op Diagnosis:: Same Procedure performed:: 1. Nasal septoplasty 2. Bilateral inferior turbinate submucosal resection Surgeon:: Nicolás Torre III, MD AUTOMATIC TYPEWRITER INSPECTOR:: Lui Melendez Anesthesia: GETA Estimated blood loss (mL): 10 Operative findings:: Right septal deviation with impaction. Superficial ulceration of mucosa on the right. Bilateral inferior turbinate hypertrophy left greater than right. Operative note:: The patient was brought to the operating room and placed under general endotracheal anesthesia. Her nose was then prepared with topical Afrin along with Afrin and lidocaine soaked cottonoids. I also injected 1% lidocaine with epinephrine into the septal mucosa. She had a caudal end deformity to the left, I therefore made the incision over this area. Hemitransfixion incision was made and I elevated a plane in the submucoperichondrial back to the periosteum on the left once the septum was isolated I then made an incision anterior to the osteocartilaginous junction and created a tunnel posteriorly on the right side. I isolated the bony defect and remove this and was able to shift the cartilaginous defect back towards the midline. A small strip of inferior quadrangular cartilage was also removed. I then replaced to straighten piece of ethmoid bone back in the intraseptal space. I then isolated the caudal end of the septum and removed a 2 mm section of this cartilage.. I then reapproximated the incision using a 5-0 chromic suture. A quilting stitch of 4-0 plain gut was then placed through and through the anterior septal mucosa and cartilage. A Rolle splint was then customized and placed on each side of the septum and sewn in place with a 3-0 nylon suture. At this point the inferior turbinates were then injected with 1% lidocaine plain. Using the 2 mm turbinate shaver blade, I made an incision in the midportion of the inferior turbinate using the shaver blade and then made an inferior submucosal resection . Similar procedures performed at the head of the inferior turbinate on the left. Similar procedure was then performed on the right inferior turbinate. Both turbinates were then outfractured. Mupirocin ointment was then placed intranasally as a topical dressing. The patient stomach contents were aspirated clear. She was then awakened in the operating room and taken to recovery in good condition. Condition: stable Disposition: PACU Complications:: None
--- NOTE | 2022-05-21 11:03 | SUR.PHASEI ---
[id number] called and gave detailed report to Ashley Chavis RN [id number] transported via stretcher to post op. vital signs stable. denies having any pain at this time. some bleeding noted to dressing. left in stable condition with Ashley Chavis RN at bedside.
--- NOTE | 2022-05-21 11:43 | SUR.PHASEII ---
1142- Spoke to MD Torre regarding pt need for Keflex order. MD will enter in order, sent to clinic pharmacy
--- NOTE | 2022-05-21 14:30 | P.PNANES_ITS ---
[facility] Anesthesia Record Part II Anesthesia Record Part II Discharge Time: 10:58 Destination: Surgical Day Care (OP Surgery) PACU nurse assessment reviewed?: Yes Patient Condition:: Good Anesthesia Complications:: None Swallowing reflex intact?: Yes Cyanosis?: No Blood Pressure: 119/71 Pulse Rate: 98 Temperature: 98.2 F Mental Status: Alert & Oriented Pain level:: 0 Nausea and/or vomitting:: None Intake, IV Amount: 0
== END 2022-05-21 11:40 | disposition home or self-care (01) ==
PROVIDERS: PCP Family Medicine; Visit Provider Otolaryngology
PROC: (CPT 30520; principal; 2022-05-21 09:00)
DX: J34.2 Deviated nasal septum (principal); J34.3 Hypertrophy of nasal turbinates; Z79.899 Other long term (current) drug therapy
CPT/HCPCS: 30520; 30140; 81025; 96374; J2405; J2710

== ENCOUNTER 2022-11-02 10:06 | Emergency (ER) | payer OTHER, SELFPAY ==
[2022-11-02 10:15] VITALS: BP 107/68; PULSE 81; RESP 18; TEMP 36.4; O2SAT 96; BMI 40.5
--- NOTE | 2022-11-02 10:34 | EXP.UTC ---
Discharge Plan Disposition Patient Disposition: Home, Self-Care Condition: Good Prescriptions Prescriptions: New qhtwphxawuhmwzj-mxohqczpx-YP [Bromfed DM] 2-30-10 mg/5 mL syrup 10 ml PO Q6H PRN (Reason: cold symptoms) Qty: 120 0RF No Action duloxetine 60 mg capsule,delayed release(DR/EC) 60 mg PO DAILY Qty: 90 0RF Vraylar 1.5 mg capsule 1.5 mg PO DAILY hydroxyzine pamoate [Vistaril] 25 mg capsule 50 mg PO DAILY Rx Instructions: 25 mg PO take 1 capsule at bedtime; if still awake in 1 hour; may repeat the dose PRN; Referrals Follow up/Referrals: Vidhi Delaney MD [Primary Care Provider] - See instructions Clinical Impressions Clinical Impression: Acute upper respiratory infection Stand Alone Forms Stand Alone Forms: Work/School Release Instructions Patient Instructions: DI for Viral Upper Respiratory Infection -- Adult Discharge ED Provider: Kate Barros [facility] [place] HPI General Stated complaint: Sore throat,cough,congestion Mode of Arrival: Ambulatory Source of Information: Patient Limitations: No Limitations Time Seen by Provider: 11/02/22 10:34 Description of Symptoms (Recalled from Triage Doc. by RN): PATIENT C/O COUGH, SORE THROAT, AND HEADACHE HEENT Symptoms (Recalled from RN notes): Yes Resp Symptoms (Recalled from RN notes): Yes Skin Symptoms (Recalled from RN notes): No MS Symptoms (Recalled from RN notes): No Functional Status (Recalled from RN notes): WNL History of Present Illness Provider Complaint: Pt states that she has felt bad the last 2 days. She reports dry cough, nasal congestion and clear drainage, and headache. She states that she has taken OTC cold medication without relief. Related Data Home Medications Medication Instructions Recorded Confirmed cariprazine 1.5 mg capsule 1.5 mg PO DAILY Depression 11/02/22 11/02/22 (Vraylar) hydroxyzine pamoate 25 mg capsule 50 mg PO DAILY Anxiety 11/02/22 11/02/22 (Vistaril) Previous Rx's Medication Instructions Recorded duloxetine 60 mg capsule,delayed 60 mg PO DAILY Depression #90 caps 08/08/22 release bcdvrqejmfuwopk-cngahpsdooikkea-LM 10 ml PO Q6H PRN cold symptoms 11/02/22 2 mg-30 mg-10 mg/5 mL oral syrup #120 mL (Bromfed DM) Allergies Allergy/AdvReac Type Severity Reaction Status Date / Time gabapentin Allergy Intermediate Rash Verified 10/03/22 14:07 ketorolac [From Toradol] Allergy Anxiety Verified 10/03/22 14:07 Worker's Comp Is this a Worker's Comp case?: No [facility] Disclaimer: The information contained in this section may have been updated after the patient was seen, as this information can be updated by other users. Medical History (Updated 11/02/22 @ 11:13 by Kate Barros APRN) Anxiety Bunion, right Depression GERD (gastroesophageal reflux disease) Hypertrophy of inferior nasal turbinate Irritable bowel syndrome (IBS) Mood disorder Nasal septal deviation Refractory obstruction of nasal airway Surgical History History of cholecystectomy History of tubal ligation Status post myringotomy with tube placement of both ears Family History (Updated 06/06/22 @ 13:20 by Dee Cormier APRN) Mother FHx: mental illness Diabetes Brother Substance abuse Father Thyroid disorder Hypertension Other Heart attack Social History (Updated 06/06/22 @ 10:23 by Dee Cormier APRN) Smoking Status: Former smoker quit date: 12/27/21 pack-years: 17 second hand exposure: No alcohol intake: current counseling given: No substance use type: denies use counseling given: No current occupational status: employed Travel in the last 8 weeks: None adopted: No caregiver/support person: No foster care: No household members: spouse and children housing: house lives independently: Yes marital status: number of children: 3 number of grandchildren: 0 e
[2022-11-02 10:58] VITALS: BP 107/68; PULSE 81; RESP 18; TEMP 36.4; O2SAT 96
[2022-11-02 11:02] LABS: UTC Strep Screen (Rapid) Negative (Negative)
[2022-11-02 11:03] LABS: UTC Influenza A Antigen Negative (Negative); UTC Influenza B Antigen Negative (Negative)
== END 2022-11-02 11:15 | disposition home or self-care (01) ==
PROVIDERS: Emergency Provider Nurse Practitioner Family; PCP Family Medicine
DX: J06.9 Acute upper respiratory infection, unspecified (principal); R51.9 Headache, unspecified; Z87.891 Personal history of nicotine dependence
CPT/HCPCS: 87804; 87880; 99212; 99214; C9803; G0463; U0003; U0005

== ENCOUNTER 2023-10-16 11:31 | Outpatient (CLI) | payer BC, SELFPAY | END 2023-10-16 23:59 | LOC: RT 11:34 | PROVIDERS: PCP Physician Assistant; Visit Provider Physician Assistant | DX: R00.2 Palpitations (principal) | CPT/HCPCS: 93270 ==

== ENCOUNTER 2024-08-31 15:23 | Emergency (ER) | payer BC, SELFPAY ==
[2024-08-31] VITALS (7 sets, daily range): BP systolic 127–141; BP diastolic 85–96; PULSE 98–122; RESP 17–20; TEMP 36.6–37; O2SAT 95–99; BMI 43.7
--- NOTE | 2024-08-31 15:24 | ECG_ITS ---
APPROVED REPORT Exam: Resting ECG HR:124 bpm ECG Measurements Heart Rate 124 AXES OK 150 P 40 QRSd 87 QRS 3 QT 412 T 16 QTc 485 Conclusion SINUS TACHYCARDIA POSSIBLE ANTERIOR MYOCARDIAL INFARCTION , OF INDETERMINATE AGE [30 ms Q WAVE IN V3/V4, OR R < 0.2 mV IN V4] ABNORMAL ECG UNCONFIRMED REPORT Electronically signed by : Raphael Hensley, 08/31/2024 23:27:45
--- NOTE | 2024-08-31 15:38 | ED_ITS ---
<Statement entered by Jean Paul Hensley MD - 08/31/24 22:53> I was consulted by the MARYSOL, and we discussed the complexity of the problems being addressed. I approved the treatment and management plan for this patient's care in the emergency department, thus performing a substantive portion of the medical decision making. Jean Paul Hensley MD, ZHENG, FACEP Discharge Plan Disposition Patient Disposition: Home, Self-Care Condition: Good Prescriptions Prescriptions: No Action duloxetine 60 mg capsule,delayed release(DR/EC) 60 mg PO DAILY Qty: 90 0RF duloxetine [Cymbalta] 30 mg capsule,delayed release(DR/EC) 30 mg PO DAILY Qty: 30 1RF Rx Instructions: take with the 60mg capsule; dosage is 90mg total daily. hydroxyzine pamoate 50 mg capsule 50 mg PO QID PRN (Reason: anxiety) Qty: 120 1RF trazodone 50 mg tablet 50 mg PO QHS PRN (Reason: sleep) Qty: 30 1RF Vraylar 3 mg capsule See Rx Instructions .ROUTE .COMPLEX Qty: 30 1RF Dose Instruction: TAKE ONE CAPSULE BY MOUTH EVERY DAY Rx Instructions: TAKE ONE CAPSULE BY MOUTH EVERY DAY Referrals Follow up/Referrals: Serina Crum PA [Primary Care Provider] - See instructions Sean House MD [Staff Physician] - See instructions Activity Restrictions/Add. Instructions Additional Instructions/Restrictions: I have referred you to cardiology for further evaluation of your tachycardia. Please call in the morning to make your appointment. Follow-up with your PCP within 48 hours for recheck. Return to ER for any worsening signs or symptoms as needed. Clinical Impressions Clinical Impression: Tachycardia Chest pain Qualifiers: Chest pain type: unspecified Qualified Code(s): R07.9 - Chest pain, unspecified Print Language Print Language: Khmer Discharge ED Provider: Jean Paul Hensley HPI General Chief Complaint: Chest Pain Stated Complaint: chest pain Time Seen by Provider: 08/31/24 15:37 History of Present Illness HPI narrative: HavingPatient presents for evaluation of fast heart rate and chest pain. Patient states that she has noted that she has had a fast heart rate all day. Around 1:30 PM chest pain and lasted approximately 30 minutes. She has had it episodically since. She does not have a history of cardiovascular disease but does have a significant history of anxiety and depression. She is on multiple medications for anxiety and depression. She denies any fever chills hemoptysis hematochezia melena nausea vomiting diarrhea. Related Data Previous Rx's ?Medication ?Instructions ?Recorded trazodone 50 mg tablet 50 mg PO QHS PRN sleep #30 tabs 07/31/23 duloxetine 30 mg capsule,delayed 30 mg PO DAILY #30 caps 08/14/23 release (Cymbalta) duloxetine 60 mg capsule,delayed 60 mg PO DAILY Depression #90 caps 08/14/23 release hydroxyzine pamoate 50 mg capsule 50 mg PO QID PRN anxiety #120 caps 08/14/23 cariprazine 3 mg capsule (Vraylar) See Rx Instructions .Route 10/07/23 .COMPLEX #30 caps Allergies Allergy/AdvReac Type Severity Reaction Status Date / Time gabapentin Allergy Intermediate Rash Verified 08/14/23 10:25 ketorolac (From Toradol) Allergy Anxiety Verified 08/14/23 10:25 PFS PFS Disclaimer: The information contained in this section may have been updated after the patient was seen, as this information can be updated by other users. Medical History (Updated 08/31/24 @ 21:04 by MANJIT Tabor) Insomnia Major depressive disorder Mood disorder Irritable bowel syndrome (IBS) Hypertrophy of inferior nasal turbinate Nasal septal deviation Refractory obstruction of nasal airway Bunion, right GERD (gastroesophageal reflux disease) Depression Anxiety Surgical History History of tubal ligation History of cholecystectomy Status post myringotomy with tube placement of both ears Family History (Updated 06/06/22 @ 13:20 by Dee Cormier APRN) Mother FHx: mental illness Diabetes Brother Substance abuse Father Thyroid disorder Hypertension Other Heart attack Social History (Updated 06/06/22 @ 10:23 by Dee Cormier APRN) Smoking Status: Never smoker second hand exposure: No alcohol intake: current alcohol intake frequency: holidays/special occasions only counseling given: No substance use type: denies use counseling given: No current occupational status: employed Travel in the last 8 weeks: None adopted: No caregiver/support person: No foster care: No household members: spouse and children housing: house lives independently: Yes marital status: number of children: 3 number of grandchildren: 0 education level: high school service: No retirement: No 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 current occupational exposures/hazards: No Hx Recent Travel: No sexually active: Yes caffeine: Yes physical activity: none lexi/islam: None special lexi needs: No working smoke detector in home: Yes fire extinguisher in home: No carbon monox detector in home: No firearms in home: Yes firearms unloaded and locked: Yes do you feel safe at home: Yes would you like helpful sources: No Have you lived/traveled outside [place] in past 30 days?: No Contact w/someone who lives/traveled outside US past 30 days?: No Exposure to someone with infectious disease in past 14 days?: No Do you have a fever (greater than 100.4 F or 38 C)?: No Have you tested positive for COVID-19: No Exposed to someone with COVID-19 in past 14 days?: No Do you have a sore throat?: No Do you have a cough?: No Do you have any weakness?: No Do you have any diarrhea?: No Are you experiencing any unusual bleeding?: No Do you have any muscle aches/pain?: No Do you have any abdominal pain?: No Are you experiencing loss of taste or smell?: No Other Medical History Have you received the Flu Vaccine for this season: Yes Have you received the Pneumonia Vaccine: No ROS Obtained: Yes Systems reviewed as appropriate & no additional complaints except as documented Physical Exam General General appearance: alert and in no apparent distress Respiratory Respiratory exam: Present normal lung sounds bilaterally Cardiovascular Cardiovascular exam: Present tachycardia Neurological Exam Neurological exam: Present alert, oriented X3 and CN II-XII intact HEART Score HEART Score HEART Score assessment performed?: Yes History (anamnesis): Slightly suspicious ECG: Non-specific disturbance Age: <45 years Risk factors: 1-2 risk factors Troponin: </= normal limit HEART Score: 2 Critical Care Critical Care Time Critical Care Time: No Medical Decision Making Medical Records Medical records reviewed: Yes I reviewed the patient's medical records. Danny Inquiry Pt receiving controlled substance: No Vital Signs Vital Signs: 08/31/24 15:25 08/31/24 18:23 08/31/24 19:23 Temperature 98.6 F Temperature Source Oral Pulse Rate 104 H 100 H Pulse Rate [Left Radial] 122 H Respiratory Rate 17 Blood Pressure 135/91 H Blood Pressure [Right Arm] 133/91 H Blood Pressure Mean [Right Arm] 105 Blood Pressure Source [Right Arm] Automatic Cuff Blood Pressure Position [Right Arm] Sitting 02 Sat by Pulse Oximetry 99 95 Oxygen Delivery Method Room Air Room Air 08/31/24 19:48 08/31/24 20:00 08/31/24 20:30 Temperature Temperature Source Pulse Rate 113 H 109 H 110 H Pulse Rate [Left Radial] Respiratory Rate Blood Pressure 130/85 127/86 141/93 H Blood Pressure [Right Arm] Blood Pressure Mean [Right Arm] Blood Pressure Source [Right Arm] Blood Pressure Position [Right Arm] 02 Sat by Pulse Oximetry 95 97 97 Oxygen Delivery Method Room Air Lab Data Lab results reviewed: Yes I reviewed the patient's lab results. Labs: Lab Results 08/31/24 15:38: WBC 5.3, RBC 4.71, Hgb 13.4, Hct 41.1, MCV 87.3, MCH 28.5, MCHC 32.6, RDW 15.1, Plt Count 216, MPV 9.8, Neut % (Auto) 69.0, Lymph % (Auto) 13.7, Prowers % (Auto) 15.4 H, Eos % (Auto) 0.9, Baso % (Auto) 0.6, Neut # (Auto) 3.7, Lymph # (Auto) 0.7, Prowers # (Auto) 0.8, Eos # (Auto) 0.1, Baso # (Auto) 0.0, D- Dimer 0.45, Sodium 138, Potassium 3.9, Chloride 106, Carbon Dioxide 23, Anion Gap 12.9, BUN 14, Creatinine 0.80, Estimated Creat Clear 78, Estimated GFR 82, Est GFR ( Amer) 99, Glucose 85, Calcium 9.1, Magnesium 2.0, Total Bilirubin 0.2, AST 41 H, ALT 32, Alkaline Phosphatase 57, Troponin I < 0.01, NT-Pro-B Natriuret Pep 103, Total Protein 6.7, Albumin 4.3, Globulin 2.4, Albumin/Globulin Ratio 1.8, TSH 2.03, Free T4 Index 2.1 L, Thyroxine (T4) 7.2, T3 Uptake 29, Serum HCG, Qual Negative, HCV Ab FLASH w/Rflx PCR Qn Negative, HIV Ag/Ab Combo Qual Negative 08/31/24 15:50: VBG pH 7.40, VBG pCO2 33.7 L, VBG pO2 61.8 H, VBG HCO3 20.4 L, V BG Total CO2 21.4 L, VBG O2 Saturation 93.1 H, VBG Base Excess -4.5 L, VBG Lactic Acid 1.2 08/31/24 18:54: Troponin I < 0.01 08/31/24 15:38 08/31/24 15:38 Response Orders (Tests/Meds): ED MEDICATIONS Discontinued Medications Generic Name Dose Route Start Last Admin Trade Name Bushra PRN Reason Stop Dose Admin Acetaminophen 1,000 mg 08/31/24 17:23 08/31/24 17:51 Acetaminophen 1,000mg/100ml Vial IV 08/31/24 17:24 1,000 mg ONCE ONE Administration Acetaminophen 1,000 mg 08/31/24 18:06 08/31/24 18:36 Acetaminophen 500mg Tab PO 08/31/24 18:07 1,000 mg ONCE ONE Administration Belladonna Alkaloids 60 ml 08/31/24 17:23 08/31/24 17:51 Belladonna Alkaloids 60 Ml Ml PO 08/31/24 17:24 60 ml ONCE ONE Administration Lactated Ringer's 1,000 mls @ 999 mls/hr 08/31/24 19:10 08/31/24 19:27 Lactated Ringer's 1000 Ml Bag IV 08/31/24 20:10 999 mls/hr .Q1H1M ONE Administration Iopamidol 70 ml 08/31/24 19:43 08/31/24 19:44 Iopamidol-370 (76%);100ml Bottle IV 08/31/24 19:44 70 ml ONCE ONE Administration Lorazepam 1 mg 08/31/24 18:07 08/31/24 18:36 Lorazepam 1mg Tablet PO 08/31/24 18:08 1 mg ONCE ONE Administration Sodium Chloride 10 ml 08/31/24 19:43 08/31/24 19:44 Sodium Chloride 0.9% 10ml Syr (Rad Only) IV 08/31/24 19:44 10 ml ONCE ONE Administration Sodium Chloride 50 ml 08/31/24 19:43 08/31/24 19:44 0.9 % Sodium Chloride 50 Ml Vial IV 08/31/24 19:44 50 ml ONCE ONE Administration ORDERS Category Date Time Status CT angio chest PE protocol Stat Cat Scan 08/31/24 19:11 Completed Chest XR 2 view (NOT portable) [XR chest 2V] Stat Exams 08/31/24 15:50 Taken BNP [NT Pro Brain Natriuretic Pep.] Stat Lab 08/31/24 15:38 Completed CBC w/Auto Diff [Complete Blood Count Auto Diff] Stat Lab 08/31/24 15:38 Completed CMP [Comprehensive Metabolic Panel] Stat Lab 08/31/24 15:38 Completed D-Dimer Stat Lab 08/31/24 15:38 Completed HCG Qualitative, Serum Stat Lab 08/31/24 15:38 Completed HIV Combo Stat Lab 08/31/24 15:38 Completed Hepatitis C Ab Qual. W/ RFX Stat Lab 08/31/24 15:38 Completed Magnesium Stat Lab 08/31/24 15:38 Completed Mini Respiratory Panel Stat Lab 08/31/24 18:35 Received Thyroid Panel Stat Lab 08/31/24 15:38 Completed Trop I [Troponin I] Stat Lab 08/31/24 15:38 Completed Troponin I Q3H Lab 08/31/24 18:54 Completed Troponin I Q3H Lab 08/31/24 22:00 Ordered VBG [Venous Blood Gas] Stat RT 08/31/24 15:50 Completed MDM Narrative Medical Decision Narrative: In summary patient is a 34-year-old female who presents to the emergency department for evaluation of tachycardia and chest pain. Patient is initially normotensive with a blood pressure of 133/91 heart rate 122 with sinus tachycardia on the bedside monitor breathing 17 times a minute satting at 99% on room air upon arrival, with a temperature of 98.6. Physical exam is unremarkable nonfocal including nonreproducible chest pain on palpation, chest pain was present on presentation to the ER but not present currently. Breath sounds are clear and equal bilaterally to the bases without adventitious sounds. Abdomen soft nontender no rebound no guarding no rigidity.. Differential diagnosis includes PE versus ACS versus viral or bacterial pneumonia versus tachyarrhythmia etc. Initial workup will be conducted with hematologic labs twelve-lead EKG plain film chest x-ray. Initial interventions include Tylenol Toradol continuous pulse oximetry and cardiac monitoring GI cocktail. Initial workup reviewed by me shows her hematologic labs are nonactionable initial troponin is undetectable twelve-lead EKG shows sinus tachycardia without evidence of ACS my informal interpretation of her plain film chest x-ray shows no acute processes prior to radiology read. Given this the patient was placed in observation status at 1700. Medical necessity for observational status is serial troponins. The patient was provided serial reevaluations and continuous cardiac monitoring and pulse oximetry while awaiting results. Patient's second troponin is also undetectable but she remains persistently tachycardic over 120. Because of this even though she has a negative D-dimer I have ordered CT PE protocol to rule out occult PE. My informal interpretation of her CT PE protocol shows no evidence of thrombus or acute abnormality prior to radiology read. Reassessment at 2100 hrs. shows that her heart rate is 95. Given this patient is appropriate for discharge if we have ruled out any serious or life- threatening underlying cause. We will have the patient follow-up with cardiology this week. Patient given strict return precautions. Total time in observation was 4 hours.
--- NOTE | 2024-08-31 15:50 | XR_ITS ---
FINAL REPORT TECHNIQUE: Chest PA & Lateral CLINICAL HISTORY: Chest pain COMPARISON: None FINDINGS: 2 views of the chest were performed. The heart size is normal. The mediastinum is within normal limits. There is no acute cardiopulmonary process. There are no pleural effusions. There is no pneumothorax. The bony thorax appears intact. IMPRESSION: No acute cardiopulmonary process. Reviewed, Interpreted and Dictated by Guru Torres MD Transcribed by Elida Valdez Authenticated and [facility]
[2024-08-31 15:56] LABS: Basophils % 0.6 % (0.1-2.0); Eosinophils # 0.1 K/mm3 (0.0-0.4); Eosinophils % 0.9 % (0.1-12.0); Hematocrit 41.1 % (37.0-47.0); Hemoglobin 13.4 g/dL (12.2-16.2); Lymphocytes # 0.7 K/mm3 (0.7-4.5); Lymphocytes % 13.7 % (10-50); Mean Corpuscular HGB Conc 32.6 g/dL (31.8-35.4); Mean Corpuscular Hemoglobin 28.5 pg (27.0-31.2); Mean Corpuscular Volume 87.3 fl (81-99); Mean Platelet Volume 9.8 fl (7.4-10.4); Monocytes # 0.8 K/mm3 (0.1-1.0); Monocytes % 15.4 % (1.7-9.3); Neutrophils # 3.7 K/mm3 (1.8-7.8); Platelet Count 216 K/mm3 (142-424); Red Blood Count 4.71 M/mm3 (4.20-5.40); Red Cell Distribution Width 15.1 % (11.5-17.5); White Blood Count 5.3 K/mm3 (4.8-10.8)
[2024-08-31 16:04] LABS: Lactate Venous 1.2 mmol/L (0.4-2.0); VBG Base Excess -4.5 mmol/L (-2.4-2.3); VBG HCO3 20.4 mmol/L (23-30); VBG Oxygen Saturation 93.1 % (50-70); VBG PCO2 33.7 mmol/L (35-51); VBG PO2 61.8 mmol/L (28-40); VBG Total CO2 21.4 mmol/L (23-27)
[2024-08-31 16:25] LABS: Alanine Aminotransferase 32 U/L (12-78); Albumin Level 4.3 g/dl (3.5-5.0); Albumin/Globulin Ratio 1.8 (1.1-1.8); Alkaline Phosphatase 57 U/L (38-126); Anion Gap 12.9 mEq/L (5-15); Aspartate Amino Transferase 41 U/L (14-36); Bilirubin,Total 0.2 mg/dl (0.2-1.3); Blood Urea Nitrogen 14 mg/dl (7-17); Calcium 9.1 mg/dl (8.4-10.2); Carbon Dioxide 23 mmol/L (22.0-30.0); Chloride 106 mmol/L (98-107); Creatinine Clearance Estimated 78 mL/min (50-200); Estimated Glomerular Filt Rate 82 ml/min (>60); GFR (African American) 99 ML/MIN (>60); Globulin 2.4 g/dL (1.3-3.2); Glucose 85 mg/dl (74-100); Potassium 3.9 mmoL/L (3.5-5.1); Sodium 138 mmol/L (136-145); Total Protein,Serum 6.7 g/dl (6.3-8.2)
[2024-08-31 16:31] LABS: D-Dimer 0.45 ug/mL (0.0-0.5)
[2024-08-31 16:36] LABS: NT Pro Brain Natriuretic Pep. 103 pg/mL (0-125)
[2024-08-31 16:37] LABS: Troponin I < 0.01 ng/ml (0.00-0.034)
[2024-08-31 17:00] LABS: HCG Qualitative, Serum Negative (Negative)
[2024-08-31 17:17] LABS: Triiodothryronine (T3) Uptake 29 % (23.5-40.5)
[2024-08-31 17:18] LABS: Free Thyroxine Index 2.1 ug/dL (5.93-13.13); T4 (Thyroxine) 7.2 ug/dl (5.53-11.0)
[2024-08-31 17:32] LABS: Thyroid Stimulating Hormone 2.03 uIU/mL (0.465-4.68)
[2024-08-31 17:40] LABS: Hepatitis C Ab Qual. W/ RFX NEGATIVE (Negative)
--- NOTE | 2024-08-31 17:40 | PC.NURSE ---
ROUNDED ON PT SHE STATES HER CHEST WAS STILL BOTHERING HER TOLD MANJIT PAN
[2024-08-31 17:41] LABS: HIV Combo NEGATIVE (Negative)
[2024-08-31] MEDS: ACETAMINOPHEN 1,000MG/100ML VIAL 1000 MG IV (17:51)
[2024-08-31] MEDS: BELLADONNA ALKALOIDS 60 ML ML PO (17:51)
[2024-08-31] MEDS: LORazepam 1MG TABLET 1 MG PO (18:36)
[2024-08-31] MEDS: ACETAMINOPHEN 500MG TAB 1000 MG PO (18:36)
[2024-08-31 18:41] LABS: Human Rhinovirus Not Detected (NotDetected); Influenza A, PCR Not Detected (NotDetected); Influenza B, PCR Not Detected (NotDetected); Respiratory Syncytial Virus Not Detected (NotDetected)
--- NOTE | 2024-08-31 19:11 | CT_ITS ---
PROCEDURE INFORMATION: Exam: CTA Chest With Contrast Exam date and time: 08/31/2024 7:42 PM Age: 34 years old Clinical indication: Pain; Chest pressure; Additional info: Chest pain, tachycardia TECHNIQUE: Imaging protocol: Computed tomographic angiography of the chest with contrast. Exam focused on the arteries. 3D rendering (Not supervised by radiologist): MIP and/or 3D reconstructed images were created by the technologist. Radiation optimization: All CT scans at this facility use at least one of these dose optimization techniques: automated exposure control; mA and/or kV adjustment per patient size (includes targeted exams where dose is matched to clinical indication); or iterative reconstruction. Contrast material: ISOVUE; Contrast volume: 70 ml; Contrast route: INTRAVENOUS (IV); COMPARISON: CR XR CHEST 2V 08/31/2024 3:53 PM FINDINGS: Pulmonary arteries: Normal. No pulmonary emboli. Aorta: Unremarkable. No aortic aneurysm. No aortic dissection. Lungs: Right lower lobe calcified nodule compatible with prior granulomatous process. Pleural spaces: Unremarkable. No pneumothorax. No pleural effusion. Heart: Unremarkable. No cardiomegaly. No pericardial effusion. Lymph nodes: Unremarkable. No enlarged lymph nodes. Gallbladder and biliary ducts: There are surgical clips within the gallbladder fossa. Bones/joints: Moderate loss of intervertebral disc space with degenerative changes involving midthoracic spine. Soft tissues: Unremarkable. Other findings: Mediastinal and right hilar calcified nodules compatible with granulomas. IMPRESSION: No acute findings.
[2024-08-31] MEDS: LACTATED RINGERS 1000ML 1,000 ML 999 ML IV (19:27)
[2024-08-31] MEDS: 0.9 % SODIUM CHLORIDE 50 ML VIAL IV (19:44)
[2024-08-31] MEDS: SODIUM CHLORIDE 0.9% 10ML SYR (RAD ONLY) 10 ML IV (19:44)
[2024-08-31] MEDS: IOPAMIDOL-370 (76%);100ML BOTTLE 70 ML IV (19:44)
[2024-08-31 19:48] LABS: Troponin I < 0.01 ng/ml (0.00-0.034)
[2024-08-31 21:48] LABS: Coronavirus 19, PCR Detected (NotDetected)
== END 2024-08-31 21:20 | disposition home or self-care (01) ==
PROVIDERS: Physician Assistant; Emergency Provider Student in an Organized Health Care Education/Training Program; PCP Physician Assistant
DX: R07.9 Chest pain, unspecified (principal); R00.0 Tachycardia, unspecified; F41.9 Anxiety disorder, unspecified; F32.A Depression, unspecified
CPT/HCPCS: 71046; 71275; 80053; 82803; 83735; 83880; 84436; 84443; 84479; 84484; 84703; 85025; 85378; 86803; 87389; 87631; 93005; 96361; 96374; 99285; J0131; J7120; Q9967

== ENCOUNTER 2024-09-02 10:59 | Outpatient (CLI) | payer BC, SELFPAY | END 2024-09-02 23:59 | disposition home or self-care (01) | LOC: RT 11:01 | PROVIDERS: PCP Physician Assistant; Visit Provider Physician Assistant | DX: R00.2 Palpitations (principal); R00.0 Tachycardia, unspecified | CPT/HCPCS: 93270 ==

== ENCOUNTER 2024-09-23 07:48 | Outpatient (CLI) | payer BC, SELFPAY ==
--- NOTE | 2024-09-23 07:52 | CA_ITS ---
APPROVED REPORT EXAM: Comprehensive 2D, Doppler, and color-flow Echocardiogram Associate: Allyssa Salas RVT Ht: 5 ft 3 in Wt: 241lbs BSA: 2.09 BP: 11/83 mmHg Indications: PALPS,FATIGUE,TACHYCARDIA 2D Dimensions LA Volume 30.40 mL LA Volume Index 14.48 mL/m2 (M/F) 16-34 M-Mode Dimensions RVDd 2.69 cm (0.9-2.6) LA Diam 3.07 cm (1.9-4.0) LVDd 3.87 cm (3.5-5.7) LVDs 2.73 cm (3.5-5.7) IVSd 1.21 cm (0.6-1.1) PWd 0.57 cm (0.6-1.1) EF (Teich) 57.00% FS 29.50% EDV (Teich) 64.70 mL TAPSE 2.47 (<1.7) ESV (Teich) 27.80 mL LV Diastology E Decel Time 150 (160-240 msec) E/A Ratio 1.0 Aortic Valve DAT Index 0.87 cm2/m2 AoV Peak Lavon. 100.0 (50-130 cm/s) AI PHT 881.00 ms AO Peak GR. 4.00 mmHg AO Mean GR. 2.10 (<5 mmHg) AO VTI 18.0 (18-25 cm) DAT (VTI) 1.87 (2.5-4.5 cm2) Mitral Valve MV E Max Lavon. 47.0 (40-130 cm/s) MV A Velocity 49.0 (40-130 cm/s) E/A Ratio 0.95 MV PHT 44.0 ms Pulmonary Valve PV Peak Velocity 67.0 (50-150 cm/s) Left Ventricle The left ventricle is normal size. The left ventricular systolic function is normal. The left ventricular ejection fraction is within the normal range. There is normal left ventricular wall thickness. There is normal LV segmental wall motion. The left ventricular diastolic function is normal. LVEF is 60%. Right Ventricle The right ventricle is normal size. The right ventricular systolic function is normal. Atria The left atrium size is normal. The right atrium size is normal. There is no Doppler evidence of interatrial shunt. Aortic Valve The aortic valve opens well. There is no aortic valvular stenosis. No aortic regurgitation is present. Mitral Valve The mitral valve is normal in structure. No evidence of mitral valve stenosis. There is no mitral valve regurgitation noted. Tricuspid Valve Tricuspid valve is grossly normal in structure and function. Trace tricuspid regurgitation. There is insufficient TR jet to estimate RVSP. Pulmonic Valve The pulmonary valve is normal in structure. Trace pulmonic regurgitation. Great Vessels The aortic root is normal in size. IVC is normal in size and collapses >50% with inspiration. Pericardium There is no pericardial effusion. Other Information Study Quality: Adequate Conclusion Normal biventricular systolic function. No significant valvular stenosis or regurgitation. Electronically signed by : Naya House MD 09/28/2024 00:11:49
== END 2024-09-23 23:59 | disposition home or self-care (01) ==
PROVIDERS: PCP Physician Assistant; Visit Provider Internal Medicine
DX: R00.2 Palpitations (principal); R00.0 Tachycardia, unspecified; R53.83 Other fatigue
CPT/HCPCS: 93306

== ENCOUNTER 2024-10-06 14:12 | Emergency (ER) | payer BC, SELFPAY ==
[2024-10-06] VITALS (9 sets, daily range): BP systolic 95–131; BP diastolic 63–78; PULSE 65–99; RESP 16–18; TEMP 36.6; O2SAT 95–100; BMI 43.5
--- NOTE | 2024-10-06 14:37 | PC.NURSE ---
pt brought from triage to [facility] 9. pt states she has had a migraine since yesterday around noon. pt states she has a hx of migraines and this feels the same. pt states her QUESADA is generalized, sharp/stabbing/throbbing and 10/10. pt reports taking tylenol around 0500, 400mg PO ibuprofen around 1200 and excedrin sometime in between without any relief. pt c/o nausea, photophobia, and sensitivity to sound. pt began getting migraines 3-4yrs ago. She states that she does not have a PRN or scheduled medications due to unsuccessful trials. pts vss. no needs voiced. call cronin in reach.
--- NOTE | 2024-10-06 14:58 | HMH.EDGENADL ---
Discharge Plan Disposition Patient Disposition: Home, Self-Care Condition: Good Prescriptions Prescriptions: No Action buspirone 5 mg tablet 5 mg PO DAILY cetirizine 5 mg tablet 5 mg PO DAILY bupropion HCl 100 mg tablet 100 mg PO DAILY desvenlafaxine succinate 100 mg tablet extended release 24 hr 100 mg PO DAILY Patient Comments: TAKE ONE TABLET BY MOUTH EVERY DAY IN THE MORNING FOR mood metoprolol tartrate 25 mg tablet 25 mg PO DAILY PRN (Reason: palpitations) Qty: 30 2RF trazodone 50 mg tablet 50 mg PO QHS PRN (Reason: sleep) Qty: 30 1RF Vraylar 3 mg capsule See Rx Instructions .ROUTE .COMPLEX Qty: 30 1RF Dose Instruction: TAKE ONE CAPSULE BY MOUTH EVERY DAY Rx Instructions: TAKE ONE CAPSULE BY MOUTH EVERY DAY Referrals Follow up/Referrals: Serina Crum PA [Primary Care Provider] - See instructions Activity Restrictions/Add. Instructions Additional Instructions/Restrictions: Return to the emergency department any worsening signs or symptoms, any worsening headache nausea vomiting lightheadedness visual disturbances. Please follow-up with family doctor/neurologist. Continue to take all medications as prescribed. Clinical Impressions Clinical Impression: Migraine Instructions Patient Instructions: DI for Migraine, DI for Headache Print Language Print Language: Bur[place]ian Discharge ED Provider: Adonis Wylie General Adult HPI <MANJIT Mendez - Last Filed: 10/06/24 17:58> General Chief complaint: Headache Stated complaint: mirgraine nausea Time Seen by Provider: 10/06/24 14:46 Mode of Arrival: Ambulatory Source of Information: Patient Description of Symptoms (Recalled from ER Triage Doc. by RN): Pt presents with c/o mirgraine and nausea x1 day. Pt states she has a hx of migraines. Pt states she has tried taking tylenol and ibuprofen. History of Present Illness HPI narrative: 34-year-old female presents to the emergency department for 1 day history of right sided headache, with some light sensitivity, patient [place] any fever chills chest pain shortness of breath neck pain, no blurry vision, no visual disturbance, decreased visual acuity, admits to some nausea, denies any vomiting, denies constipation diarrhea melena hematochezia hematemesis, hemoptysis, constipation diarrhea no urinary type symptomatology. Patient states this is similar to her previous diagnosis of migrainous type headaches, patient has seen neurologist in the past, was on an injection medication for control, however migraines decreased in frequency thus patient discontinued follow-ups and medication. Patient has tried ibuprofen Tylenol little to no relief of her symptomatology, she has no history of substance use, other past medical history consistent with MDD/ILANA, bipolar 1. Distress vitals unremarkable. Patient tells me that when I used to have migraines I used to get migraine cocktails and it would help . Onset (ago): day(s) Related Data Home Medications ?Medication ?Instructions ?Recorded ?Confirmed bupropion HCl 100 mg tablet 100 mg PO DAILY Anxiety and 09/02/24 10/06/24 depression buspirone 5 mg tablet 5 mg PO DAILY Anxiety 09/02/24 10/06/24 cetirizine 5 mg tablet 5 mg PO DAILY Allergies 09/02/24 10/06/24 desvenlafaxine succinate 100 mg 100 mg PO DAILY 09/16/24 10/06/24 tablet,extended release 24 hr Previous Rx's ?Medication ?Instructions ?Recorded trazodone 50 mg tablet 50 mg PO QHS PRN sleep #30 tabs 07/31/23 cariprazine 3 mg capsule (Vraylar) See Rx Instructions .Route 10/07/23 .COMPLEX #30 caps metoprolol tartrate 25 mg tablet 25 mg PO DAILY PRN palpitations 09/16/24 #30 tabs Allergies Allergy/AdvReac Type Severity Reaction Status Date / Time gabapentin Allergy Intermediate Rash Verified 10/06/24 15:00 ketorolac (From Toradol) Allergy Anxiety Verified 10/06/24 15:00 [facility] <MANJIT Mendez - Last Filed: 10/06/24 17:58> [facility] Disclaimer: The information contained in this section may have been updated after the patient was seen, as this information can be updated by other users. 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 She has an asymmetric columella, right septal deviation and weakening of the left alar cartilage. Bunion, right GERD (gastroesophageal reflux disease) Depression Anxiety Surgical History History of tubal ligation History of cholecystectomy Status post myringotomy with tube placement of both ears Family History Mother FHx: mental illness depression Diabetes Brother , passed November 2020; from drug overdose Substance abuse Father Thyroid disorder Hypertension Other Heart attack Social History Smoking Status: Current every day smoker tobacco type: cigarettes packs per day: 1 second hand exposure: No alcohol intake: current alcohol intake frequency: holidays/special occasions only counseling given: No substance use type: denies use counseling given: No current occupational status: employed Travel in the last 8 weeks: None adopted: No caregiver/support person: No foster care: No household members: spouse and children housing: house lives independently: Yes marital status: number of children: 3 number of grandchildren: 0 education level: high school service: No group home: No 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 current occupational exposures/hazards: No Hx Recent Travel: No sexually active: Yes caffeine: Yes physical activity: none lexi/temple: None special lexi needs: No working smoke detector in home: Yes fire extinguisher in home: No carbon monox detector in home: No firearms in home: Yes firearms unloaded and locked: Yes do you feel safe at home: Yes would you like helpful sources: No Have you lived/traveled outside [place] in past 30 days?: No Contact w/someone who lives/traveled outside US past 30 days?: No Exposure to someone with infectious disease in past 14 days?: No Do you have a fever (greater than 100.4 F or 38 C)?: No Have you tested positive for COVID-19: No Exposed to someone with COVID-19 in past 14 days?: No Do you have a sore throat?: No Do you have a cough?: No Do you have any weakness?: No Do you have any diarrhea?: No Are you experiencing any unusual bleeding?: No Do you have any muscle aches/pain?: No Do you have any abdominal pain?: No Are you experiencing loss of taste or smell?: No Other Medical History Have you received the Flu Vaccine for this season: Yes Have you received the Pneumonia Vaccine: No <MANJIT Mendez - Last Filed: 10/06/24 17:58> ROS Obtained: Yes All systems reviewed & no additional complaints except as documented Physical Exam <MANJIT Mendez - Last Filed: 10/06/24 17:58> General General appearance: alert and in no apparent distress Head Head exam: atraumatic and normocephalic Eye Eye exam: Present PERRL and EOMI ENT ENT exam: Present mucous membranes moist Neck Neck exam: Present normal inspection Chest Chest inspection: Present normal inspection and symmetric chest wall rise Respiratory Respiratory exam: Present normal lung sounds bilaterally; Absent respiratory distress Cardiovascular Cardiovascular exam: Present regular rate and normal rhythm Abdominal Exam Abdominal exam: Present soft; Absent tenderness Extremities Exam Extremities exam: Present normal inspection Neurological Exam Neurological exam: Present alert and oriented X3 Psychiatric Psychiatric exam: Present normal affect Skin Skin exam: Present warm and dry Medical Decision Making <MANJIT Mendez - Last Filed: 10/06/24 17:58> Medical Records Medical records reviewed: Yes I reviewed the patient's medical records. Screening: Per USPSTF and CDC recommendations, given the prevalence of disease in our region, it is our hospital?s policy to screen for HIV and viral Hepatitis for all patients aged 18 and over and those with ongoing risk factors. Danny Inquiry Pt receiving controlled substance: No Danny was queried for this patient: No Vital Signs: 10/06/24 14:20 10/06/24 15:27 10/06/24 15:30 Temperature 97.8 F Temperature Source Oral Pulse Rate 97 H 98 H Pulse Rate [Right] 78 Respiratory Rate 18 Blood Pressure 116/75 108/76 L Blood Pressure [Right Arm] 131/75 Blood Pressure Mean 88 83 Blood Pressure Mean [Right Arm] 93 Blood Pressure Source [Right Arm] Automatic Cuff Blood Pressure Position [Right Arm] Sitting 02 Sat by Pulse Oximetry 97 98 97 Oxygen Delivery Method Room Air Room Air 10/06/24 16:00 10/06/24 16:30 10/06/24 16:38 Temperature Temperature Source Pulse Rate 80 78 80 Pulse Rate [Right] Respiratory Rate Blood Pressure 98/71 L 95/69 L 108/66 L Blood Pressure [Right Arm] Blood Pressure Mean 79 77 82 Blood Pressure Mean [Right Arm] Blood Pressure Source [Right Arm] Blood Pressure Position [Right Arm] 02 Sat by Pulse Oximetry 98 98 97 Oxygen Delivery Method Room Air Room Air Room Air 10/06/24 17:06 10/06/24 17:30 10/06/24 18:07 Temperature 97.8 F Temperature Source Pulse Rate 65 80 99 H Pulse Rate [Right] Respiratory Rate 16 17 18 Blood Pressure 104/69 L 101/63 L 117/78 Blood Pressure [Right Arm] Blood Pressure Mean Blood Pressure Mean [Right Arm] Blood Pressure Source [Right Arm] Blood Pressure Position [Right Arm] 02 Sat by Pulse Oximetry 95 99 Oxygen Delivery Method Room Air Room Air Room Air Orders (Tests/Meds): ED MEDICATIONS Discontinued Medications Generic Name Dose Route Start Last Admin Trade Name Hiroq PRN Reason Stop Dose Admin Acetaminophen 1,000 mg 10/06/24 15:15 10/06/24 15:18 Acetaminophen 1,000mg/100ml Vial IV 10/06/24 15:16 1,000 mg ONCE ONE Administration Dexamethasone Sodium Phosphate 10 mg 10/06/24 15:04 10/06/24 15:18 Dexamethasone 4mg/Ml 1ml Vial IV 10/06/24 15:05 10 mg ONCE ONE Administration Diphenhydramine HCl 25 mg 10/06/24 15:05 10/06/24 15:19 Diphenhydramine 50mg/Ml Vial IV 10/06/24 15:06 25 mg ONCE ONE Administration Droperidol 2.5 mg 10/06/24 16:52 10/06/24 17:07 Droperidol 5mg/2ml Vial IV 10/06/24 16:53 2.5 mg ONCE ONE Administration Metoclopramide HCl 10 mg 10/06/24 15:04 10/06/24 15:19 Metoclopramide Hcl 10mg/2ml Vial IVP 10/06/24 15:05 10 mg ONCE ONE Administration Medical Decision Narrative: 34-year-old female presents the emergency department with a headache, differential diagnosis to include but not limited to, migraine without aura, migraine with aura, tension headache, cluster headache, ophthalmologic migraine, sinus headache. I discussed patient case with attending physician Dr. Wylie and Dr. Cardozo I offered laboratory studies and imaging studies to the patient at this time, she denied, shared decision-making was utilized, will give patient IV migraine cocktail to consist of IV dexamethasone 10 mg, 10 mg IV Reglan, and 25 mg IV Benadry, IV Tylenol 1000 mg l for symptomatic relief. Patient has no other red flag signs or symptoms, patient's current migrainous type syndrome is in line with her previous past history of this. Reexamination of the patient at 4:45 PM, patient states her headache is still present, will obtain EKG and give 2.5 mg IV droperidol for migrainous type syndrome. Once again, I offered further workup and imaging study, patient would like to pursue medication treatment prior to this as this is similar in her migrainous type symptomatology. I along with the attending physician with the patient's EKG, NSR at 75 bpm TX interval done was, QT interval within normal limits there is no STEMI. Reexamination of the patient approximately 5:55 PM, patient is feeling better, resting comfortably in bed headache has subsided, patient is cleared to be discharged home to self-care recommend follow-up with PCP, potential follow-up with neurologist for if headaches persist in frequency and severity. Patient voiced understand agree with current treatment plan/discharge plan, strict ED return precaution were given. <Dharmesh Cardozo MD - Last Filed: 10/06/24 18:07> Vital Signs: 10/06/24 14:20 10/06/24 15:27 10/06/24 15:30 Temperature 97.8 F Temperature Source Oral Pulse Rate 97 H 98 H Pulse Rate [Right] 78 Respiratory Rate 18 Blood Pressure 116/75 108/76 L Blood Pressure [Right Arm] 131/75 Blood Pressure Mean 88 83 Blood Pressure Mean [Right Arm] 93 Blood Pressure Source [Right Arm] Automatic Cuff Blood Pressure Position [Right Arm] Sitting 02 Sat by Pulse Oximetry 97 98 97 Oxygen Delivery Method Room Air Room Air 10/06/24 16:00 10/06/24 16:30 10/06/24 16:38 Temperature Temperature Source Pulse Rate 80 78 80 Pulse Rate [Right] Respiratory Rate Blood Pressure 98/71 L 95/69 L 108/66 L Blood Pressure [Right Arm] Blood Pressure Mean 79 77 82 Blood Pressure Mean [Right Arm] Blood Pressure Source [Right Arm] Blood Pressure Position [Right Arm] 02 Sat by Pulse Oximetry 98 98 97 Oxygen Delivery Method Room Air Room Air Room Air 10/06/24 17:06 10/06/24 17:30 10/06/24 18:07 Temperature 97.8 F Temperature Source Pulse Rate 65 80 99 H Pulse Rate [Right] Respiratory Rate 16 17 18 Blood Pressure 104/69 L 101/63 L 117/78 Blood Pressure [Right Arm] Blood Pressure Mean Blood Pressure Mean [Right Arm] Blood Pressure Source [Right Arm] Blood Pressure Position [Right Arm] 02 Sat by Pulse Oximetry 95 99 Oxygen Delivery Method Room Air Room Air Room Air Orders (Tests/Meds): ED MEDICATIONS Discontinued Medications Generic Name Dose Route Start Last Admin Trade Name Bushra PRN Reason Stop Dose Admin Acetaminophen 1,000 mg 10/06/24 15:15 10/06/24 15:18 Acetaminophen 1,000mg/100ml Vial IV 10/06/24 15:16 1,000 mg ONCE ONE Administration Dexamethasone Sodium Phosphate 10 mg 10/06/24 15:04 10/06/24 15:18 Dexamethasone 4mg/Ml 1ml Vial IV 10/06/24 15:05 10 mg ONCE ONE Administration Diphenhydramine HCl 25 mg 10/06/24 15:05 10/06/24 15:19 Diphenhydramine 50mg/Ml Vial IV 10/06/24 15:06 25 mg ONCE ONE Administration Droperidol 2.5 mg 10/06/24 16:52 10/06/24 17:07 Droperidol 5mg/2ml Vial IV 10/06/24 16:53 2.5 mg ONCE ONE Administration Metoclopramide HCl 10 mg 10/06/24 15:04 10/06/24 15:19 Metoclopramide Hcl 10mg/2ml Vial IVP 10/06/24 15:05 10 mg ONCE ONE Administration Medical Decision Narrative: 34-year-old female presents the emergency department with a headache, differential diagnosis to include but not limited to, migraine without aura, migraine with aura, tension headache, cluster headache, ophthalmologic migraine, sinus headache. I discussed patient case with attending physician Dr. Wylie and Dr. Cardozo I offered laboratory studies and imaging studies to the patient at this time, she denied, shared decision-making was utilized, will give patient IV migraine cocktail to consist of IV dexamethasone 10 mg, 10 mg IV Reglan, and 25 mg IV Benadry, IV Tylenol 1000 mg l for symptomatic relief. Patient has no other red flag signs or symptoms, patient's current migrainous type syndrome is in line with her previous past history of this. Reexamination of the patient at 4:45 PM, patient states her headache is still present, will obtain EKG and give 2.5 mg IV droperidol for migrainous type syndrome. Once again, I offered further workup and imaging study, patient would like to pursue medication treatment prior to this as this is similar in her migrainous type symptomatology. I along with the attending physician with the patient's EKG, NSR at 75 bpm TX interval done was, QT interval within normal limits there is no STEMI. Reexamination of the patient approximately 5:55 PM, patient is feeling better, resting comfortably in bed headache has subsided, patient is cleared to be discharged home to self-care recommend follow-up with PCP, potential follow-up with neurologist for if headaches persist in frequency and severity. Patient voiced understand agree with current treatment plan/discharge plan, strict ED return precaution were given. I was consulted by the MARYSOL, and we discussed the complexity of the problems being addressed. I approved the treatment and management plan for this patient's care in the emergency department, thus performing a substantive portion of the medical decision making. Dharmesh Cardozo MD <Adonis Wylie MD - Last Filed: 10/08/24 18:05> Vital Signs: 10/06/24 14:20 10/06/24 15:27 10/06/24 15:30 Temperature 97.8 F Temperature Source Oral Pulse Rate 97 H 98 H Pulse Rate [Right] 78 Respiratory Rate 18 Blood Pressure 116/75 108/76 L Blood Pressure [Right Arm] 131/75 Blood Pressure Mean 88 83 Blood Pressure Mean [Right Arm] 93 Blood Pressure Source [Right Arm] Automatic Cuff Blood Pressure Position [Right Arm] Sitting 02 Sat by Pulse Oximetry 97 98 97 Oxygen Delivery Method Room Air Room Air 10/06/24 16:00 10/06/24 16:30 10/06/24 16:38 Temperature Temperature Source Pulse Rate 80 78 80 Pulse Rate [Right] Respiratory Rate Blood Pressure 98/71 L 95/69 L 108/66 L Blood Pressure [Right Arm] Blood Pressure Mean 79 77 82 Blood Pressure Mean [Right Arm] Blood Pressure Source [Right Arm] Blood Pressure Position [Right Arm] 02 Sat by Pulse Oximetry 98 98 97 Oxygen Delivery Method Room Air Room Air Room Air 10/06/24 17:06 10/06/24 17:30 10/06/24 18:07 Temperature 97.8 F Temperature Source Pulse Rate 65 80 99 H Pulse Rate [Right] Respiratory Rate 16 17 18 Blood Pressure 104/69 L 101/63 L 117/78 Blood Pressure [Right Arm] Blood Pressure Mean Blood Pressure Mean [Right Arm] Blood Pressure Source [Right Arm] Blood Pressure Position [Right Arm] 02 Sat by Pulse Oximetry 95 99 Oxygen Delivery Method Room Air Room Air Room Air Orders (Tests/Meds): ED MEDICATIONS Discontinued Medications Generic Name Dose Route Start Last Admin Trade Name Bushra PRN Reason Stop Dose Admin Acetaminophen 1,000 mg 10/06/24 15:15 10/06/24 15:18 Acetaminophen 1,000mg/100ml Vial IV 10/06/24 15:16 1,000 mg ONCE ONE Administration Dexamethasone Sodium Phosphate 10 mg 10/06/24 15:04 10/06/24 15:18 Dexamethasone 4mg/Ml 1ml Vial IV 10/06/24 15:05 10 mg ONCE ONE Administration Diphenhydramine HCl 25 mg 10/06/24 15:05 10/06/24 15:19 Diphenhydramine 50mg/Ml Vial IV 10/06/24 15:06 25 mg ONCE ONE Administration Droperidol 2.5 mg 10/06/24 16:52 10/06/24 17:07 Droperidol 5mg/2ml Vial IV 10/06/24 16:53 2.5 mg ONCE ONE Administration Metoclopramide HCl 10 mg 10/06/24 15:04 10/06/24 15:19 Metoclopramide Hcl 10mg/2ml Vial IVP 10/06/24 15:05 10 mg ONCE ONE Administration Medical Decision Narrative: 34-year-old female presents the emergency department with a headache, differential diagnosis to include but not limited to, migraine without aura, migraine with aura, tension headache, cluster headache, ophthalmologic migraine, sinus headache. I discussed patient case with attending physician Dr. Wylie and Dr. Cardozo I offered laboratory studies and imaging studies to the patient at this time, she denied, shared decision-making was utilized, will give patient IV migraine cocktail to consist of IV dexamethasone 10 mg, 10 mg IV Reglan, and 25 mg IV Benadry, IV Tylenol 1000 mg l for symptomatic relief. Patient has no other red flag signs or symptoms, patient's current migrainous type syndrome is in line with her previous past history of this. Reexamination of the patient at 4:45 PM, patient states her headache is still present, will obtain EKG and give 2.5 mg IV droperidol for migrainous type syndrome. Once again, I offered further workup and imaging study, patient would like to pursue medication treatment prior to this as this is similar in her migrainous type symptomatology. I along with the attending physician with the patient's EKG, NSR at 75 bpm TX interval done was, QT interval within normal limits there is no STEMI. Reexamination of the patient approximately 5:55 PM, patient is feeling better, resting comfortably in bed headache has subsided, patient is cleared to be discharged home to self-care recommend follow-up with PCP, potential follow-up with neurologist for if headaches persist in frequency and severity. Patient voiced understand agree with current treatment plan/discharge plan, strict ED return precaution were given. I was consulted by the MARYSOL, and we discussed the complexity of the problems being addressed. I approved the treatment and management plan for this patient's care in the emergency department, thus performing a substantive portion of the medical decision making. Dharmesh Cardozo MD I was consulted by the MARYSOL, and we discussed the complexity of the problems being addressed. I approved the treatment and management plan for this patient's care in the Emergency Department, thus performing a substantive portion of the medical decision making. Adonis Wylie MD Critical Care <MANJIT Mendez - Last Filed: 10/06/24 17:58> Critical Care Time Critical Care Time: No
[2024-10-06] MEDS: DEXAMETHASONE 4MG/ML 1ML VIAL 10 MG IV (15:18)
[2024-10-06] MEDS: ACETAMINOPHEN 1,000MG/100ML VIAL 1000 MG IV (15:18)
[2024-10-06] MEDS: METOCLOPRAMIDE HCL 10MG/2ML VIAL 10 MG IVP (15:19)
[2024-10-06] MEDS: diphenhydrAMINE 50MG/ML VIAL 25 MG IV (15:19)
--- NOTE | 2024-10-06 16:36 | PC.NURSE ---
I rounded on the pt. She states the medication has not helped at all. no other needs voiced. call roseanne in reach. I notified Hayden SARAVIA. He states we will do a EKG the droperidol.
--- NOTE | 2024-10-06 16:44 | ECG_ITS ---
APPROVED REPORT Exam: Resting ECG HR:75 bpm ECG Measurements Heart Rate 75 AXES DC 145 P 45 QRSd 90 QRS 69 QT 371 T 28 QTc 400 Conclusion Sinus rhythm Electronically signed by : JT BUSBY, 10/08/2024 23:22:56
--- NOTE | 2024-10-06 16:47 | PC.NURSE ---
pt inquired why she was getting an EKG. I explained that it is protocol with the medication the provider is ordering. no other needs voiced. no new complaints. call cronin in reach.
[2024-10-06] MEDS: droPERidol 5MG/2ML VIAL 2.5 MG IV (17:07)
== END 2024-10-06 18:07 | disposition home or self-care (01) ==
PROVIDERS: Emergency Provider Emergency Medicine; PCP Physician Assistant
DX: G43.909 Migraine, unspecified, not intractable, without status migrainosus (principal); H53.149 Visual discomfort, unspecified; R11.0 Nausea; F17.210 Nicotine dependence, cigarettes, uncomplicated
CPT/HCPCS: 93005; 96374; 96375; 99283; J0131; J1100; J1200; J1790; J2765

== ENCOUNTER 2025-04-06 19:53 | Emergency (ER) | payer BC, SELFPAY ==
--- OUTSIDE RECORDS SUMMARY | 2023-10-16 06:45 | XMS_ITS ---
[facility] Address [address] [place] [id number] Care Team Providers Care Stripper Black And White Name Role Phone Jean Paul Delaney Primary Care Provider Nayely Sam Unavailable [phone] Allergies No Known Allergies Results Component Value Reference Range Notes EEG Reviewed date:10/30/2023 05:06:57 PM Interpretation: Performing Lab: Notes/Report: MRI : Brain with and w/o con trast Reviewed date:10/24/2023 02:04:57 PM Interpretation: Performing Lab: Notes/Report: Event Recorder Reviewed date:11/05/2023 10:09:34 AM Interpretation: Performing Lab: Notes/Report: REASON FOR VISIT Possible Seizure on Saturday Medications Medication SIG (Take, Route, Frequency, Duration) Notes Start Date End Date Status Vraylar 3 MG 1 capsule Orally Onc e a day; Duration: 30 day(s) Active Flonase Allergy Relief 50 MCG/ACT 1 spray in each nostril Nasally Once a day 10/16/2023 Active Ondansetron HCl 4 MG 1 tablet Orally patricio ry 8 hours as needed 09/11/2023 Not-Taking Loratadine 10 MG 1 tablet Orally Once a day; Duration: 30 day(s) 10/16/2023 Active Tamiflu 75 MG 1 capsule Orally Twi ce a day 09/11/2023 Not-Taking DULoxetine HCl 60 MG 1 capsule Orally On ce a day; Duration: 30 day(s) Not-Taking Vilazodone HCl 10 MG 1 tablet with food Orally Once a day; Duration: 30 day(s) Active Vital Signs Blood pressure systolic 110 mm Hg 10/16/19 24 Blood pressure diastolic 80 mm Hg 024 Heart Rate 82 /min 10/16/2023 Height 64 in 10/16/2023 Weight 222 lbs 10/16/2023 BMI 38.10 kg/m2 10/16/2023 Encounters Encounter Location Date Provider Diagnosis [facility] [address] [facility] [address] [place] [id number] 10/16/2023 Nayely Sam Palpitations R00.2 ; Syncope, unspecified syncope type R55 ; Non-recurrent acute serous otitis media of both ears H65.03 and Convulsions, unspecified convulsion type R56.9 Assessments Encounter Date Diagnosis (ICD Code) Assessment Notes Treatment Notes Treatment Clinical Notes Section Notes 10/16/2023 Palpitations (ICD-10 - R00.2) Will get a 2 week event monitor. 10/16/2023 Syncope, unspecified syncope type (ICD-10 - R55) Just recently had labs checked and they were all normal other than a low Vit D and B12 and she has started on B12 and D vitamins. 10/16/2023 Non-recurrent acute serous otitis media of both ears (ICD-10 - H65.03) 10/16/2023 Convulsions, unspecified convulsion type (ICD-10 - R56.9) I spoke with Neurology. Dr. Longoria is out until October 27 but they recommend getting an EEG and MRI of the brain. Plan Of Treatment Medication Medication Name Sig Start Date Stop Date Notes Flonase Allergy Relief 50 MCG/ACT 1 spray in each nostril Nasally Once a day 10/16/2023 Loratadine 10 MG 1 tablet Orally Once a day; Duration: 30 day(s) 10/16/2023 Treatment Notes Assessment Notes Palpitations Will get a 2 week ev ent monitor. Syncope, unspecified syncope type Just r ecently had labs checked and they were all normal other than a low Vit D and B12 and she has started on B12 and D vitamins. Convulsions, unspecified convulsion type I spoke with Neurology. Dr. Longoria is out until October 27 but they recommend getting an EEG and MRI of the brain. Next Appt Details Follow Up: via phone to repo rt test results, Reason: Progress Notes * Shana CHANOB: 0 (35 yo F)Acc No.[id number]:10/16/2023 Progress Notes Patient: Jeremiah LOPEZ Provider: MANJIT Kay :1990 A ge:33 Y S ex:Female Date:10/16/2023 Address:[address] [id number] Pcp:Jean Paul Delaney Subjective: * Chief Complaints: * 1 . Possible Seizure on Saturday. * HPI: N eurology: 33 year old female presents with c/o seizure Pt states on Saturday she was out with friends when she became dizzy and lightheaded . Pt states she passed out f or a few minutes and her friends told her she was convulsing like she was having a s eizure. She has no memory of any of this. The only medication change recently has been transitioning off of duloxetine and onto vilazodone. She has had no further syncopal episodes but does continue to feel dizzy.. Denies : headache. D enies : tingling/ numbness. C ardiology: Has been having palpitations for the past week and feeling like her heart is racing. She is not sure if that contributed to the syncopal episode. * ROS: D ERMATOLOGY: no R rocco. n o H juan. G ASTROENTEROLOGY: no V omiting. n o D iarrhea. U ROLOGY: no D ifficulty urinating. n o B lood in urine. * Medical History: E sophageal reflux, Anxiety disorder, Migraine headache. * Surgical History: c holecystectomy 02/2009, tubal ligation - bilateral , Bunion Removed - Plate and Screws 01/27/2020. * Hospitalization/Major Diagno stic Procedure: c hild x 3 , [facility] UTC-rolled left ankle 02/2021. * Family History: F ather: alive 46 yrs. M other: alive 44 yrs. 2 brother(s) - healthy. . * Social History: C URRENT TOBACCO USE S moking Status: P atient does smoke, p acks per day: 0 ,?number of cigarettes per day: 1 0, S waqas age of: [age], S moking preference: cigarettes. C affeine: yes, frequency: pop 2 daily. Past smoking status: yes, PPD:1/2 , years: 2 ,determination:. Alcohol: No. * Medications: T aking Vilazodone HCl 10 MG Tablet 1 tablet with food Orally Once a day , Taking Vraylar 3 MG Capsule 1 capsule Orally Once a day , Not-Taking DULoxetine HCl 60 MG Capsule Delayed Release Particles 1 capsule Orally Once a day , Not-Taking Tamiflu 75 MG Capsule 1 capsule Orally Twice a day , Not-Taking Ondansetron HCl 4 MG Tablet 1 tablet Orally every 8 hours as needed , Medication List reviewed and reconciled with the patient * Allergies: N .K.D.A. Objective: * Vitals: W t:222, Temp:98.0, BP:110/80, HR:82, Nurse:dm, Ht: 64, BMI:38.10. * Examination: G eneral Examination: General Appearance: N AD. H EENT: sclera and conjunctiva clear, PERRLA, TM's with effusion bilaterally, no erythema. O ral cavity: n o lesions, mucosa moist and WNL, no erythema. N timur: s upple, no lymphadenopathy. C hest: n ormal shape and expansion. H eart: R SR. L ungs: c lear to auscultation. A bdomen: bowel sounds present, soft and nontender, no organomegaly or masses, no guarding or rigidity. N eurologic Exam: I ntact, gait normal. S kin: n ormal, no rash. P eripheral pulses: n ormal (2+) bilaterally. E xtremities: n o leg edema. Assessment: * Assessment: 1. P alpitations - R00.2 (Primary) 2 . S yncope, unspecified syncope type - R55 3 . N on-recurrent acute serous otitis media of both ears - H65.03 ? 4 . C onvulsions, unspecified convulsion type - R56.9 Plan: * Treatment: Notes: Will get a 2 week event monitor.??2.?Syncope, unspecified syncope type?Imaging: MRI : Brain with and w/o contrast (Performed Date - 10/23/2023)* Nayely Sam 10/16/2023 4: 04:43 PM >Kate Govea 10/16/2023 4:08:48 PM > auth [id number] valid Kate 10/16/2023 4:09:28 PM > faxed order to [place], they will contact Nayely Wilson 10/24/2023 2:04:54 PM > see TE Notes: Just recently had labs checked and they were all normal other than a low Vit D and B12 and she has started on B12 and D vitamins.??3.?Non-recurrent acute serous otitis media of both ears? Start Loratadine Tablet, 10 MG, 1 tablet, Orally, Once a day, 30 day(s), 30 Tablet, Refills 1;?Start Flonase Allergy Relief Suspension, 50 MCG/ACT, 1 spray in each nostril, Nasally, Once a day, 1, Refills 2.??4.?Convulsions, unspecified convulsion type?Imaging: EEG (Performed Date - 10/21/2023)* Nayely Sam 10/16/2023 4: 03:41 PM > Needs a sleep deprived prolonged EEG as per Neurology, it is scheduled for SaturdayOctober 20 at 2:00pm. She will need to be awake from midnight on for EEG.JefersonKate 10/16/2023 4:10:09 PM > order faxed to Nayely [place] 10/30/2023 5:06:54 PM > see TE ?Imaging: MRI : Brain with and w/o contrast (Performed Date - 10/23/2023)* Nayely Sam 10/16/2023 4: 04:43 PM >GoveaDeyaniraKate 10/16/2023 4:08:48 PM > auth [id number] valid Kate 10/16/2023 4:09:28 PM > faxed order to [place], they will contact Nayely Wilson 10/24/2023 2:04:54 PM > see TE Notes: I spoke with Neurology. Dr. Longoria is out until October 27 but they recommend getting an EEG andMRI of the brain. ?? * Follow Up: v ia phone to report test results * Images: Billing Information: * Visit Code: 84956 Office Visit, Est Pt., Level 4. * Procedure Codes: * Electronic signature of MANJIT Beck on 04/06/2025 at 07:57 PM EDT Sign off status: Pending * Provider: MANJIT Kay Date: 0 10/16/2023 Generated for Printi ng/Faxing/eTransmitting on: 0 04/06/2025 07:57 PM EDT History and Physical Notes * HPI (History of Present Illness) Category Sub-Category Detail Notes Category Not es Neurology headache tingling/ numbness seizure Pt states on Saturda y she was out with friends when she became dizzy and lightheaded . Pt states she passed out for a few minutes and her friends told her she was convulsing like she was having a seizure. She has no memory of any of this. The only medication change recently has been transitioning off of duloxetine and onto vilazodone. She has had no further syncopal episodes but does continue to feel dizzy. Cardiology Has been having palpitations for the past week and feeling like her heart is racing. She is not sure if that contributed to the syncopal episode. Examination Category Sub-Category Detail Notes Category Not es General Examination HEENT: sclera and c onjunctiva clear, PERRLA, TM's with effusion bilaterally, no erythema Heart: RSR Lungs: clear to auscultatio n Abdomen: bowel sounds present , soft and nontender, no organomegaly or masses, no guarding or rigidity Extremities: no leg edema General Appearance: NAD Skin: normal, no rash Neurologic Exam: Intact, gait normal Neck: supple, no lymphaden opathy Oral cavity: no lesions, mucosa m oist and WNL, no erythema Peripheral pulses: normal (2+) bilatera lly Chest: normal shape and exp ansion
--- OUTSIDE RECORDS SUMMARY | 2024-01-08 05:30 | XMS_ITS ---
[facility] Address [address] [place] [id number] Care Team Providers Care Plumber Assistant Name Role Phone Jean Paul Delaney Primary Care Provider [phone] Nayely Sam Unavailable [phone] Allergies No Known Allergies Results Component Value Reference Range Notes CBC Fingerstick (in house) Reviewed date:01/09/2024 09:17:06 AM Interpretation: Performing Lab: Notes/Report: wbc 5.6 3.5 - 10 lym 23.6% 15 - 50 mid 4.7% 2 - 15 gran 71.7% 35 - 80 rbc 5.22 3.5 - 5.5 hgb 14.5 11.5 - 16.5 hct 45.6 35 - 55 mcv 87.4 75 - 100 mch 27.8 25 - 35 mchc 31.8 31 - 38 plat 167 100 - 400 REASON FOR VISIT ckup Medications Medication SIG (Take, Route, Frequency, Duration) Notes Start Date End Date Status Bromfed DM 2-30-10 MG/5ML 5-10 mL Orally four times a day, prn 01/08/2024 Active Loratadine 10 MG 1 tablet Orally Once a day; Duration: 30 day(s) 10/16/2023 Active Vraylar 3 MG 1 capsule Orally Onc e a day; Duration: 30 day(s) Active buPROPion HCl ER (XL) 150 MG 1 tablet in the morning Orally Once a day; Duration: 30 day(s) Active traZODone HCl 50 MG 1 tablet at bedtime as needed Orally Once a day; Duration: 30 day(s) Active hydrOXYzine HCl 50 MG 1 tablet Orally ev safia four hours as needed Active Vital Signs Blood pressure systolic 104 mm Hg 01/08/20 24 Blood pressure diastolic 80 mm Hg 024 Heart Rate 56 /min 01/08/2024 Height 64 in 01/08/2024 Weight 228.2 lbs 01/08/2024 BMI 39.17 kg/m2 01/08/2024 Encounters Encounter Location Date Provider Diagnosis [facility] [address] [place] [id number] 01/08/2024 Nayely Sam Acute URI J06.9 and Depression with anxiety F41.8 Assessments Encounter Date Diagnosis (ICD Code) Assessment Notes Treatment Notes Treatment Clinical Notes Section Notes 01/08/2024 Acute URI (ICD-10 - J06.9) Has flonase at home. 01/08/2024 Depression with anxiety (ICD-10 - F41.8) Doing well. Plan Of Treatment Medication Medication Name Sig Start Date Stop Date Notes Bromfed DM 2-30-10 MG/5ML 5-10 mL Orally four times a day, prn 01/08/2024 Treatment Notes Assessment Notes Acute URI Has flonase at home. Depression with anxiety Doing well. Next Appt Details Follow Up: prn, Reason: Progress Notes * Shana CHANOB: 0 (35 yo F)Acc No.[id number]:01/08/2024 Progress Notes Patient: Jeremiah LOPEZ Provider: MANJIT Kay :1990 A ge:33 Y S ex:Female Date:01/08/2024 Address:[address] [facility] [id number] Pcp:Jean Paul Delaney Subjective: * Chief Complaints: * 1 . Ckup. * HPI: P sychology: The patient is here for a check up on Anxiety. She is doing well and following with a doctor in [place]. Pt states she has had a persistent cough over the past 5 days. Pt states the sputum in sometime green and sometimes clear. Pt also c/o chest pressure and head ache. Pt denies any fever. Pt states she did a home covid test that was negative. Pt states she is not needing any refills at this time. * ROS: D ERMATOLOGY: no R rocco. n o H juan. G ASTROENTEROLOGY: no N ausea. n o V omiting. n o D iarrhea.? U ROLOGY: no D ifficulty urinating. n o B lood in urine. * Medical History: E sophageal reflux, Anxiety disorder, Migraine headache. * Surgical History: c holecystectomy 02/2009, tubal ligation - bilateral , Bunion Removed - Plate and Screws 01/27/2020. * Hospitalization/Major Diagno stic Procedure: c hild x 3 , [facility] UTC-rolled left ankle 02/2021. * Family History: [...] ,determination:. Alcohol: No. * Medications: T aking hydrOXYzine HCl 50 MG Tablet 1 tablet Orally every four hours as needed , Taking traZODone HCl 50 MG Tablet 1 tablet at bedtime as needed Orally Once a day , Taking buPROPion HCl ER (XL) 150 MG Tablet Extended Release 24 Hour 1 tablet in the morning Orally Once a day , Taking Vraylar 3 MG Capsule 1 capsule Orally Once a day , Taking Loratadine 10 MG Tablet 1 tablet Orally Once a day , Discontinued Vilazodone HCl 10 MG Tablet 1 tablet with food Orally Once a day , Discontinued Flonase Allergy Relief 50 MCG/ACT Suspension 1 spray in each nostril Nasally Once a day , Discontinued DULoxetine HCl 60 MG Capsule Delayed Release Particles 1 capsule Orally Once a day , Discontinued Tamiflu 75 MG Capsule 1 capsule Orally Twice a day , Discontinued Ondansetron HCl 4 MG Tablet 1 tablet Orally every 8 hours as needed , Medication List reviewed and reconciled with the patient * Allergies: N .K.D.A. Objective: * Vitals: W t:228.2, Temp:98.0, BP:104/80, HR:56, Nurse:NÉSTOR, Ht: 64, BMI:39.17. * Examination: P sychology: General Appearance: N AD. G rooming : a dequate.?Eye contact : n ormal. M ood : p leasant. E NT/Respiratory: General Appearance: N AD. E ars: a uditory canals normal bilaterally, TM's WNL. N ose : turbinates red, congested. S inuses : tender maxillary sinuses bilaterally. O ral cavity : erythema without exudate on pharynx, PND present. N timur : n o cervical lymphadenopathy. H eart : R RR, normal S1 S2, no murmurs. L ungs: c lear to auscultation bilaterally. Assessment: * Assessment: 1. A cute URI - J06.9 (Primary) 2 . D epression with anxiety - F41.8 ? Plan: * Treatment: Value Reference Range w bc 5.6 3.5 - 10 * l ym 23.6% 15 - 50 * m id 4.7% 2 - 15 * g ran 71.7% 35 - 80 * r bc 5.22 3.5 - 5.5 * h gb 14.5 11.5 - 16.5 * h ct 45.6 35 - 55 * m cv 87.4 75 - 100 * m ch 27.8 25 - 35 * m chc 31.8 31 - 38 * p lat 167 100 - 400 * Olamide Mayer 01/08/2024 10: 14:31 AM > , Provider reviewed results while patient in office. Notes: Has flonase at home.??2.?Depression with anxiety? Notes: Doing well.?? * Procedure Codes: 3 6416 CAPILLARY BLOOD DRAW, 94569 CBC WITH AUTO DIFF * Follow Up: p rn * Images: Billing Information: * Visit Code: 65489 Office Visit, Est Pt., Level 3. * Procedure Codes: 48369 CAPILLARY BLOOD DRAW. 29359 CBC WITH AUTO DIFF. * Electronic signature of MANJIT Beck on 04/06/2025 at 07:58 PM EDT Sign off status: Pending * Provider: MANJIT Kay Date: 0 01/08/2024 Generated for Printi ng/Fadayanag/eTransmitting on: 0 04/06/2025 07:58 PM EDT History and Physical Notes * Examination Category Sub-Category Detail Notes Category Not es ENT/Respiratory Oral cavity : erythema without exudate on pharynx, PND present Sinuses : tender maxillary sin uses bilaterally Ears: auditory canals norm al bilaterally, TM's WNL Neck : no cervical lymphade nopathy Heart : RRR, normal S1 S2, n o murmurs Lungs: clear to auscultatio n bilaterally General Appearance: NAD Nose : turbinates red, renetat ested Psychology General Appearance: NAD Grooming : adequate Eye contact : normal Mood : pleasant
--- OUTSIDE RECORDS SUMMARY | 2024-05-14 07:15 | XMS_ITS ---
Author Organization [facility] Address [address] [facility] [address] [place] [id number] Care Team Providers Care Casino Worker Name Role Phone Jean Paul Delaney Primary Care Provider Jerald Liang Unavailable [phone] Allergies No Known Allergies Results Component Value Reference Range Notes CBC Fingerstick (in house) Reviewed date:05/14/2024 11:54:25 AM Interpretation: Performing Lab: Notes/Report: wbc 7.1 3.5 - 10 lym 25.0% 15 - 50 mid 5.7% 2 - 15 gran 69.3% 35 - 80 rbc 5.15 3.5 - 5.5 hgb 14.6 11.5 - 16.5 hct 44.5 35 - 55 mcv 86.4 75 - 100 mch 28.4 25 - 35 mchc 32.9 31 - 38 plat 174 100 - 400 P-Amylase Reviewed date:05/15/2024 10:21:07 AM Interpretation: Performing Lab: Notes/Report: Test performed by [facility] [address] [place] [address] , [address], [place] [address] Marlo Nelson MD, Plastics Factory Worker CLIA: [id number] Amylase 56 28-100 U/L P-Comprehensive Metabolic Pa pasquale (CMP) Reviewed date:05/15/2024 10:21:07 AM Interpretation:co2- 19, gluc 128 Performing Lab: Notes/Report: Test performed by [facility] [address] [place], [place] [address] , [address], [place] [address] Marlo Nelson MD, Plastics Factory Worker CLIA: [id number] Sodium 139 135-145 mmol/L Potassium 4.0 3.5-5.3 mmol/L Chloride 105 97-108 mmol/L CO2 19 22-32 mmol/L Glucose 128 65-99 mg/dL BUN 7 6-20 mg/dL Creatinine 0.83 0.50-1.00 mg/dL Calcium 9.5 8.6-10.4 mg/dL eGFR by Creatinine 95 >59 mL/min/1.73m2 Protein 6.9 6.0-8.3 g/dL Albumin 4.2 3.5-5.3 g/dL Alkaline Phosphatase 63 35-121 IU/L ALT (SGPT) 30 <5-47 IU/L AST (SGOT) 25 <5-40 IU/L Bilirubin, Total <0.2 <0.2-1.2 mg/dL A/G Ratio 1.6 1.1-2.5 P-Lipase Reviewed date:05/15/2024 10:21:07 AM Interpretation: Performing Lab: Notes/Report: Test performed by [employer] [facility] [address] [place] [address] , [address], [place] [address] Marlo Nelson MD, Plastics Factory Worker CLIA: [id number] Lipase 28.5 13.0-60.0 u/L REASON FOR VISIT vomiting, stomach pains Medications Medication SIG (Take, Route, Frequency, Duration) Notes Start Date End Date Status Loratadine 10 MG 1 tablet Orally Once [...] ev safia four hours as needed Active Ondansetron HCl 4 MG 1 tablet Orally thr ee times a day as needed 05/14/2024 Active Vital Signs Blood pressure systolic 116 mm Hg 05/14/20 24 Blood pressure diastolic 80 mm Hg 024 Heart Rate 92 /min 05/14/2024 Height 64 in 05/14/2024 Weight 234.2 lbs 05/14/2024 BMI 40.20 kg/m2 05/14/2024 Encounters Encounter Location Date Provider Diagnosis [facility] [address] [place] [id number] 05/14/2024 Jerald Liang Epigastric abdominal pain R10.13 and Acute vomiting R11.10 Assessments Encounter Date Diagnosis (ICD Code) Assessment Notes Treatment Notes Treatment Clinical Notes Section Notes 05/14/2024 Epigastric abdominal pain (ICD-10 - R10.13) 05/14/2024 Acute vomiting (ICD-10 - R11.10) Plan Of Treatment Medication Medication Name Sig Start Date Stop Date Notes Ondansetron HCl 4 MG 1 tablet Orally thr ee times a day as needed 05/14/2024 Next Appt Details Follow Up: via phone to repo rt test results, Reason: Progress Notes * Shana CHANOB: 0 (35 yo F)Acc No.[id number]:05/14/2024 Progress Notes Patient: Jeremiah LOPEZ Provider: Nevaeh Liang M.D. :1990 A ge:34 Y S ex:Female Date:05/14/2024 Address:[address] [id number] Pcp:Jean Paul Delaney Subjective: * Chief Complaints: * 1 . Vomiting, stomach pains. * HPI: G astroenterology: 34 year old female presents with c/o Vomiting P t complains of vomiting that started last night. Pt states that she started with severe pain last night as well. Pt states the pain is between breasts and she thought it was reflux so she took Omeprazole and did get some relief. Pt states she is unable to eat without the pain worsening. * ROS: C ARDIOLOGY: no D izziness. n o C hest pain. D ERMATOLOGY: no R rocco. n o H juan. U ROLOGY: no D ifficulty urinating. n o B lood in urine. * Medical History: E sophageal reflux, Anxiety disorder, Migraine headache. * Surgical History: c holecystectomy 02/2009, tubal ligation - bilateral , Bunion Removed - Plate and Screws 01/27/2020. * Hospitalization/Major Diagno stic Procedure: c hild x 3 , [facility] UTC-rolled left ankle 02/2021. * Family [...] tablet Orally Once a day , Discontinued Bromfed DM 2-30-10 MG/5ML Syrup 5-10 mL Orally four times a day, prn , Medication List reviewed and reconciled with the patient * Allergies: N .K.D.A. Objective: * Vitals: W t:234.2, Temp:98.5, BP:116/80, HR:92, Nurse:maliha, Ht: 64, BMI:40.20. * Examination: G astroenterology: General Appearance: p leasant, NAD. O ral cavity: n ormal. S clera: a nicteric. H eart sounds: r egular, normal S1 S2. L ungs: c lear, no rales or wheezes. A bdomen: B S present, soft, only minimal epigastric tenderness to palpation, no guarding or rigidity, no masses felt. Assessment: * Assessment: 1. E pigastric abdominal pain - R10.13 (Primary) 2 . A cute vomiting - R11.10 Plan: * Treatment: Value Reference Range A mylase 56 28-100 - U/L * Chelsea Marcelino 05/15/2024 10:2 0:57 AM >See phone encounter ?LAB: P-Comprehensive Metabolic Panel (CMP) (Collection Date & Time - 05/14/2024 10:50 AM)?co2- 19, gluc 128* Value Reference Range A /G Ratio 1.6 1.1-2.5 - * A lbumin 4.2 3.5-5.3 - g/dL * A lkaline Phosphatase 63 35-121 - IU/L * A LT (SGPT) 30 <5-47 - IU/L * A ST (SGOT) 25 <5-40 - IU/L * B ilirubin, Total <0.2 <0.2-1.2 - mg/dL * B UN 7 6-20 - mg/dL * C alcium 9.5 8.6-10.4 - mg/dL * C hloride 105 97-108 - mmol/L * C O2 19 L 22-32 - mmol/L * C reatinine 0.83 0.50-1.00 - mg/dL * G lucose 128 H 65-99 - mg/dL * P otassium 4.0 3.5-5.3 - mmol/L * S odium 139 135-145 - mmol/L * P rotein 6.9 6.0-8.3 - g/dL * e GFR by Creatinine 95 >59 - mL/min/1.73m2 * Chelsea Marcelino 05/15/2024 10:2 0:57 AM >See phone encounter ?LAB: P-Lipase (Collection Date & Time - 05/14/2024 10:50 AM)* Value Reference Range L ipase 28.5 13.0-60.0 - u/L * Chelsea Marcelino 05/15/2024 10:2 0:57 AM >See phone encounter ?LAB: CBC Fingerstick (in house) (Collection Date & Time - 05/14/2024)* Value Reference Range w bc 7.1 3.5 - 10 * l ym 25.0% 15 - 50 * m id 5.7% 2 - 15 * g ran 69.3% 35 - 80 * r bc 5.15 3.5 - 5.5 * h gb 14.6 11.5 - 16.5 * h ct 44.5 35 - 55 * m cv 86.4 75 - 100 * m ch 28.4 25 - 35 * m chc 32.9 31 - 38 * p lat 174 100 - 400 * Yamile Chavis 05/14/2024 11:31: 58 AM > , Provider reviewed results while patient in office. 2.?Acute vomiting? Start Ondansetron HCl Tablet, 4 MG, 1 tablet, Orally, three times a day as needed, 20, Refills 0. ?LAB: P-Amylase (Collection Date & Time - 05/14/2024 10:50 AM)* Value Reference Range A mylase 56 28-100 - U/L * Chelsea Marcelino 05/15/2024 10:2 0:57 AM >See phone encounter ?LAB: P-Comprehensive Metabolic Panel (CMP) (Collection Date & Time - 05/14/2024 10:50 AM)?co2- 19, gluc 128* Value Reference Range A /G Ratio 1.6 1.1-2.5 - * A lbumin 4.2 3.5-5.3 - g/dL * A lkaline Phosphatase 63 35-121 - IU/L * A LT (SGPT) 30 <5-47 - IU/L * A ST (SGOT) 25 <5-40 - IU/L * B ilirubin, Total <0.2 <0.2-1.2 - mg/dL * B UN 7 6-20 - mg/dL * C alcium 9.5 8.6-10.4 - mg/dL * C hloride 105 97-108 - mmol/L * C O2 19 L 22-32 - mmol/L * C reatinine 0.83 0.50-1.00 - mg/dL * G lucose 128 H 65-99 - mg/dL * P otassium 4.0 3.5-5.3 - mmol/L * S odium 139 135-145 - mmol/L * P rotein 6.9 6.0-8.3 - g/dL * e GFR by Creatinine 95 >59 - mL/min/1.73m2 * Chelsea Marcelino 05/15/2024 10:2 0:57 AM >See phone encounter ?LAB: P-Lipase (Collection Date & Time - 05/14/2024 10:50 AM)* Value Reference Range L ipase 28.5 13.0-60.0 - u/L * Chelsea Marcelino 05/15/2024 10:2 0:57 AM >See phone encounter * Procedure Codes: 3 6416 CAPILLARY BLOOD DRAW, 96043 CBC WITH AUTO DIFF * Follow Up: v ia phone to report test results * Images: Billing Information: * Visit Code: 93562 Office Visit, Est Pt., Level 4. * Procedure Codes: 64333 CAPILLARY BLOOD DRAW. 62801 CBC WITH AUTO DIFF. * Electronic signature of Nona Liang MD on 04/06/2025 at 07:57 PM EDT Sign off status: Pending * Provider: Nevaeh Liang M.D. Date: 1 Generated for Ronnie antoine/Mitchell/eTransmitting on: 0 04/06/2025 07:57 PM EDT History and Physical Notes * HPI (History of Present Illness) Category Sub-Category Detail Notes Category Not es Gastroenterology Vomiting Pt complains of vomiting that started last night. Pt states that she started with severe pain last night as well. Pt states the pain is between breasts and she thought it was reflux so she took Omeprazole and did get some relief. Pt states she is unable to eat without the pain worsening Examination Category Sub-Category Detail Notes Category Not es Gastroenterology Oral cavity: normal Sclera: anicteric Heart sounds: regular, normal S1 S 2 Lungs: clear, no rales or w heezes Abdomen: BS present, soft, on ly minimal epigastric tenderness to palpation, no guarding or rigidity, no masses felt General Appearance: pleasant, NAD
[2025-04-06] VITALS (9 sets, daily range): BP systolic 94–123; BP diastolic 50–81; PULSE 82–115; RESP 14–18; TEMP 36.7–36.8; O2SAT 98–100; BMI 45.3
--- NOTE | 2025-04-06 19:56 | ECG_ITS ---
APPROVED REPORT Exam: Resting ECG HR:92 bpm ECG Measurements Heart Rate 92 AXES HI 140 P 46 QRSd 86 QRS 34 QT 342 T 36 QTc 392 Conclusion Normal sinus rhythm without acute ST or T wave changes concerning for ischemia Electronically signed by : Danielle Carcamo, 04/07/2025 00:21:26
--- OUTSIDE RECORDS SUMMARY | 2025-04-06 19:58 | XMS_ITS | Clinical Summary ---
Author Organization Healthcare Address [address] [id number] Care Team Providers Care Lamination Operator Name Role Phone Jose Delaney MD Primary Care Provider [phone] Immunizations Immunization Administration Dates Next Due TD (adult), 2 Lf tetanus tox oid, preservative free, adsorbed 05/01/2009 Family History Medical History Relation Name Comments Hypertension Father Thyroid disease Father Cataracts Maternal Grandfather Glaucoma Maternal Grandmother Cardiac disorder Mother Diabetes Mother Diabetes Other 1 Diabetes Other 2 Diabetes Other 3 Relation Name Status Comments Father Maternal Grandfather Maternal Grandmother Mother Other 1 Other 2 Other 3 Social History Tobacco Use Types Packs/Day Years Used Date Smoking Tobacco: Former Alcohol Use Standard Drinks/Week Comments Yes 0 (1 standard drink = 0.6 oz pur e alcohol) Comments Unknown Sex and Gender Information Value Date Recorded Sex Assigned at Not on file Legal Sex Female 8:59 PM EDT Gender Identity Not on file Sexual Orientation Not on file Last Filed Vital Signs Vital Sign Reading Time Taken Comments Blood Pressure 124/72 03/05/2019 9:16 AM EDT Pulse 70 02/13/2019 11:15 AM EDT Temperature - - Respiratory Rate - - Oxygen Saturation - - Inhaled Oxygen Concentration - - Weight 78.5 kg (173 lb 1 oz) 03/05/2019 9:16 AM EDT Height 154.9 cm (5' 1 ) 03/05/2019 9:16 AM EDT Body Mass Index 32.7 03/05/2019 9:16 AM EDT Plan of Treatment Not on file Care Teams Lamination Operator Relationship Specialty Start Date End Date Jose Delaney MD [address] [place] [address] [place] [id number] PCP - General 12/09/20
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
[2025-04-06 20:22] LABS: Hematocrit 39.3 % (37.0-47.0); Hemoglobin 12.3 g/dL (12.2-16.2); Immature Granulocytes % 0.3 %; Mean Corpuscular HGB Conc 31.3 g/dL (31.8-35.4); Mean Corpuscular Hemoglobin 26.7 pg (27.0-31.2); Mean Corpuscular Volume 85.2 fl (81-99); Nucleated Red Blood Cells % 0 %; Platelet Count 256 K/mm3 (142-424); Red Blood Count 4.61 M/mm3 (4.20-5.40); Red Cell Distribution Width-SD 50.2 fL; White Blood Count 9.2 K/mm3 (4.8-10.8)
[2025-04-06] MEDS: LACTATED RINGERS 1000ML 1,000 ML 999 ML IV (20:22)
[2025-04-06 20:26] LABS: Alanine Aminotransferase 24 U/L (12-78); Albumin Level 3.9 g/dl (3.5-5.0); Albumin/Globulin Ratio 1.4 (1.1-1.8); Alkaline Phosphatase 52 U/L (38-126); Anion Gap 9.7 mEq/L (5-15); Aspartate Amino Transferase 30 U/L (14-36); Bilirubin,Total 0.3 mg/dl (0.2-1.3); Blood Urea Nitrogen 12 mg/dl (7-17); Calcium 9.0 mg/dl (8.4-10.2); Carbon Dioxide 26 mmol/L (22.0-30.0); Chloride 106 mmol/L (98-107); Creatinine Clearance Estimated 66 mL/min (50-200); Creatinine,Serum 0.90 mg/dl (0.52-1.04); Estimated Glomerular Filt Rate 71 ml/min (>60); GFR (African American) 86 ML/MIN (>60); Globulin 2.7 g/dL (1.3-3.2); Glucose 114 mg/dl (74-100); Lipase 106 U/L (23-300); Magnesium 1.9 mg/dl (1.6-2.3); Potassium 3.7 mmoL/L (3.5-5.1); Sodium 138 mmol/L (136-145); Total Protein,Serum 6.6 g/dl (6.3-8.2)
--- NOTE | 2025-04-06 20:26 | PC.NURSE ---
patiebt to CT with radiology staff via stretcher.
--- NOTE | 2025-04-06 20:31 | PC.NURSE ---
updated family in the lobby that the patient was in CT scan. We would bring them back when patient returned from radiology and was placed in a gown.
[2025-04-06] MEDS: 0.9 % SODIUM CHLORIDE 50 ML VIAL 80 ML IV (20:32)
[2025-04-06] MEDS: SODIUM CHLORIDE 0.9% 10ML SYR (RAD ONLY) 10 ML IV (20:32)
[2025-04-06] MEDS: IOPAMIDOL-370 (76%);100ML BOTTLE 160 ML IV (20:32)
--- NOTE | 2025-04-06 20:33 | PC.NURSE ---
1952- Carlos Alberto WALLIS at bedside performing FAST exam on patient 1954- FAST exam negative per Carlos Alberto WALLIS 1958- physical exam negative per Carlos Alberto WALLIS 2014- pre-hospital ketamine infusion completed at this time. verbal orders given by Carlos Alberto WALLIS. verbal orders repeated and correct.
[2025-04-06 20:37] LABS: HCG Qualitative, Serum Negative (Negative)
[2025-04-06 20:44] LABS: Activated Partial Thrombo Time 21.2 seconds (22.8-30.6); INR 0.95 (0.9-1.1); Prothrombin Time 10.6 seconds (10.1-12.5)
--- NOTE | 2025-04-06 20:53 | PC.NURSE ---
patient back to room from radiology
[2025-04-06] MEDS: CYCLOBENZAPRINE 10MG TABLET 5 MG PO (21:08)
[2025-04-06] MEDS: ACETAMINOPHEN 500MG TAB 1000 MG PO (21:08)
[2025-04-06] MEDS: ONDANSETRON 4MG/2ML VIAL 4 MG IV (21:12)
[2025-04-06] MEDS: MORPHINE 4MG/ML SYRINGE 4 MG IV ×3 (21:12→23:06)
--- NOTE | 2025-04-06 21:43 | PC.NURSE ---
Attempted to call EMS at this time. Did not answer, will try again in a few minutes.
--- NOTE | 2025-04-06 21:53 | PC.NURSE ---
multiple attempts made to call report to [facility] ED. No answer. will keep attempting
--- NOTE | 2025-04-06 22:06 | PC.NURSE ---
Carlos Alberto WALLIS at bedside splinting injured extremity
--- NOTE | 2025-04-06 22:07 | PC.NURSE ---
report called to ED at 2201, report given to ED burrito maker
== END 2025-04-06 23:12 | disposition other institution (70) ==
PROVIDERS: Emergency Provider Student in an Organized Health Care Education/Training Program; PCP Physician Assistant
DX: S82.201A Unspecified fracture of shaft of right tibia, initial encounter for closed fracture (principal)
CPT/HCPCS: 70450; 70496; 70498; 71045; 71275; 72125; 72128; 72131; 72170; 73562; 73590; 73610; 74174; 80053; 83690; 83735; 84703; 85025; 85610; 85730; 93005; 96361; 96374; 96375; 96376; 99285; 99291; G0390; J2270; J2405; J7120; Q9967

== ENCOUNTER 2025-04-26 14:00 | Outpatient (RCR) | payer OTHER, BC, SELFPAY | END 2025-04-26 23:59 | disposition home or self-care (01) | LOC: PT.CARL 14:00 | PROVIDERS: Visit Provider Nurse Practitioner | DX: S82.201D Unspecified fracture of shaft of right tibia, subsequent encounter for closed fracture with routine healing (principal); S82.401D Unspecified fracture of shaft of right fibula, subsequent encounter for closed fracture with routine healing | CPT/HCPCS: 97110; 97116; 97161 ==

== ENCOUNTER 2025-05-25 09:00 | Outpatient (RCR) | payer OTHER, BC, SELFPAY | END 2025-05-25 23:59 | disposition home or self-care (01) | LOC: PT.CARL 09:00 | PROVIDERS: Visit Provider Nurse Practitioner | DX: S82.401D Unspecified fracture of shaft of right fibula, subsequent encounter for closed fracture with routine healing; X58.XXXD Exposure to other specified factors, subsequent encounter | CPT/HCPCS: 97110; 97112; 97116; 97140; 97530 ==

== ENCOUNTER 2025-06-16 11:00 | Outpatient (RCR) | payer OTHER, BC, SELFPAY | END 2025-06-16 23:59 | disposition home or self-care (01) | LOC: PT.CARL 11:00 | PROVIDERS: Visit Provider Nurse Practitioner | DX: S82.401G Unspecified fracture of shaft of right fibula, subsequent encounter for closed fracture with delayed healing (principal); X58.XXXD Exposure to other specified factors, subsequent encounter | CPT/HCPCS: 97110; 97112; 97140; 97530 ==

== ENCOUNTER 2025-07-14 11:00 | Outpatient (RCR) | payer OTHER, BC, SELFPAY | END 2025-07-28 11:56 | disposition home or self-care (01) | LOC: PT.CARL 11:00 | PROVIDERS: Visit Provider Nurse Practitioner | DX: S82.401D Unspecified fracture of shaft of right fibula, subsequent encounter for closed fracture with routine healing | CPT/HCPCS: 97110; 97530 ==